=== PATIENT | female | born 1950 | race Caucasian/White ===

== ENCOUNTER 2018-11-05 17:51 | Inpatient (IN) | payer MEDICARE ==
[~2018-11-05] VITALS: Ht 157.5 cm; Wt 48.5 kg
[~2018-11-05 17:51] MED LIST: ADVAIR 250-501 EACH IH; ALBUTEROL1.25 MG/3 NEB; CLARITIN-D 241 EACH PO; LOPRESSOR25 MG PO; METHYLPREDNISOLO4 M1; PREDNISONE20 MG PO; SINGULAIR10 MG PO; SPIRIVA18 MCG; TESSALON PERLE100 MG PO; THEOPHYLLINE A200 MG PO; VENTOLIN HFA18 GM INH; ZOLOFT100 MG PO; unable to obtain
--- OUTSIDE RECORDS SUMMARY | 2018-11-05 17:54 | XMS REPORT ---
Author Author [facility] Address Unknown Phone Unavailable Care Team Providers Care [employer] Field Supervisor Name Role Phone HARVEY IRELAND Unavailable Unavailable Problems This patient has no known problems. Allergies, Adverse Reactions, Alerts Allergy Name Allergy Type Status Severity Reaction(s) Onset Date Inactive Date Treating Clinician Comments No Known Allergies DA Active U 2011-09-26 00:00:00 Medications This patient has no known medications. Results Test Description Test Time Test Comments Text Results Atomic Results Result Comments LIPASE 2017-12-07 16:31:00 LIPASE (BEAKER) (test zevp=917) 6 U/L 8-78 HEPATIC FUNCTION [id number] 16:31:00* Test Item Value Reference Range Comments TOTAL PROTEIN (BEAKER) (test obtl=196) 5.6 gm/dL 6.0-8.3 ALBUMIN (BEAKER) (test tptd=2023) 3.5 g/dL 3.5-5.0 BILIRUBIN TOTAL (BEAKER) (test cxms=251) 0.6 mg/dL 0.2-1.2 BILIRUBIN DIRECT (BEAKER) (test wtab=633) 0.3 mg/dL 0.1-0.5 ALKALINE PHOSPHATASE (BEAKER) (test bvqj=595) 67 U/L 40-150 AST (SGOT) (BEAKER) (test lfnc=750) 24 U/L 5-34 ALT (SGPT) (BEAKER) (test cwee=007) 18 U/L 6-55 TISSUE [id number] 10:51:00Surgical Pathology Report Case: [id number] Authorizing Provider: Ricardo Ireland Collected: 12/03/2017 0929 MD Barry Ordering Location: [facility] Endoscopy Received: 12/03/2017 1441 Services Pathologist: Chika Bradford MD Specimen: Polyp, Colon - Right/Ascending, POLYP-TAKEN BY ESD. EVALUATE MARGINS COLON, ASCENDING, ENDOSCOPIC SUBMUCOSAL DISSECTION OF POLYP- SESSILE SERRATED POLYP/ADENOMA- NEGATIVE FOR CYTOLOGIC ATYPIA - NEGATIVE FOR INVASIVE ADENOCARCINOMA- POLYP EXTENDS TO PERIPHERAL MUCOSAL MARGIN- see comment Signing Pathologist Direct Phone Line: [phone] signed by Chika Bradford MD on 12/07/2017 at 10:51 AMEndoscopic correlation is recommended to determine completeness of excision of the polyp. [id number] colon polypRight/ascending colon polypReceived in formalin labeled "polyp, colon right/ascending" is a 3.6 x 3.0 cm irregular mucous covered fragment of soft tissue excised to a depth of 0.2 cm. The mucosal surface is purple-noland to paul- white, dusky and nodular. Sectioning reveals no firm areas. Ink code: peripheral resection margins - blue; deep margin - black. The specimen is entirely sequentially submitted in cassettes A1-A8. DB/plAll sections A1-A8 show i nvolvement by sessile serrated polyp extending to peripheral mucosa margins. No cytologic atypia or invasive adenocarcinoma is seen.[id number] 06:13:00 * Test Item Value Reference Range Comments MAGNESIUM (BEAKER) (test wosd=764) 1.9 mg/dL 1.6-2.6 BASIC METABOLIC [id number] 06:13:00* Test Item Value Reference Range Comments SODIUM (BEAKER) (test syid=919) 143 meq/L 136-145 POTASSIUM (BEAKER) (test dvpg=849) 3.5 meq/L 3.5-5.1 CHLORIDE (BEAKER) (test cttr=526) 108 meq/L 98-107 CO2 (BEAKER) (test ydlp=278) 29 meq/L 22-29 BLOOD UREA NITROGEN (BEAKER) (test bkrz=849) 6 mg/dL 7-21 CREATININE (BEAKER) (test ajqv=396) 0.63 mg/dL 0.57-1.25 GLUCOSE RANDOM (BEAKER) (test keox=080) 97 mg/dL 70-105 CALCIUM (BEAKER) (test ntaw=552) 8.6 mg/dL 8.4-10.2 EGFR (BEAKER) (test tqad=6106) 95 mL/min/1.73 sq m ESTIMATED GFR IS NOT ACCURATE CREATININE CLEARANCE IN PREDICTING GLOMERULAR FILTRATION RATE. ESTIMATED GFR IS NOT APPLICABLE FOR DIALYSIS PATIENTS. CBC W/PLT COUNT & AUTO [id number] 05:43:00* Test Item Value Reference Range Comments WHITE BLOOD CELL COUNT (BEAKER) (test duzs=866) 4.5 K/ L 3.5-10.5 RED BLOOD CELL COUNT (BEAKER) (test qqof=544) 4.13 M/ L 3.93-5.22 HEMOGLOBIN (BEAKER) (test ktoy=644) 11.7 GM/DL 11.2-15.7 HEMATOCRIT (BEAKER) (test srlt=332) 38.0 % 34.1-44.9 MEAN CORPUSCULAR VOLUME (BEAKER) (test fpcw=573) 92.0 fL 79.4-94.8 MEAN CORPUSCULAR HEMOGLOBIN (BEAKER) (test juxh=862) 28.3 pg 25.6-32.2 MEAN CORPUSCULAR HEMOGLOBIN CONC (BEAKER) (test zjsq=111) 30.8 GM/DL 32.2-35.5 RED CELL DISTRIBUTION WIDTH (BEAKER) (test hzvq=679) 13.9 % 11.7-14.4 PLATELET COUNT (BEAKER) (test vtws=201) 150 K/CU MM 150-450 MEAN PLATELET VOLUME (BEAKER) (test bsvc=072) 10.7 fL 9.4-12.3 NUCLEATED RED BLOOD CELLS (BEAKER) (test nbom=460) 0 /100 WBC 0-0 NEUTROPHILS RELATIVE PERCENT (BEAKER) (test anuc=033) 75 % LYMPHOCYTES RELATIVE PERCENT (BEAKER) (test stdo=666) 12 % MONOCYTES RELATIVE PERCENT (BEAKER) (test kzyc=832) 7 % EOSINOPHILS RELATIVE PERCENT (BEAKER) (test csna=913) 4 % BASOPHILS RELATIVE PERCENT (BEAKER) (test wnwp=884) 1 % NEUTROPHILS ABSOLUTE COUNT (BEAKER) (test wrva=090) 3.38 K/ L 1.56-6.13 LYMPHOCYTES ABSOLUTE COUNT (BEAKER) (test zqvo=897) 0.52 K/ L 1.18-3.74 MONOCYTES ABSOLUTE COUNT (BEAKER) (test xqdc=782) 0.31 K/ L 0.24-0.36 EOSINOPHILS ABSOLUTE COUNT (BEAKER) (test zndu=292) 0.19 K/ L 0.04-0.36 BASOPHILS ABSOLUTE COUNT (BEAKER) (test jihp=928) 0.03 K/ L 0.01-0.08 IMMATURE GRANULOCYTES-RELATIVE PERCENT (BEAKER) (test cxlb=7926) 1 % 0-1 [id number] 07:07:00* Test Item Value Reference Range Comments MAGNESIUM (BEAKER) (test thvg=357) 1.8 mg/dL 1.6-2.6 Specimen slightly hemolyzed BASIC METABOLIC [id number] 07:07:00* Test Item Value Reference Range Comments SODIUM (BEAKER) (test eccc=124) 141 meq/L 136-145 POTASSIUM (BEAKER) (test hijn=619) 4.0 meq/L 3.5-5.1 Specimen slightly hemolyzed CHLORIDE (BEAKER) (test wqne=809) 107 meq/L 98-107 CO2 (BEAKER) (test wutt=511) 23 meq/L 22-29 BLOOD UREA NITROGEN (BEAKER) (test enai=351) 5 mg/dL 7-21 CREATININE (BEAKER) (test gmmz=397) 0.59 mg/dL 0.57-1.25 Specimen slightly hemolyzed GLUCOSE RANDOM (BEAKER) (test wjwl=249) 76 mg/dL 70-105 CALCIUM (BEAKER) (test kqzb=022) 8.9 mg/dL 8.4-10.2 EGFR (BEAKER) (test edkf=2007) 102 mL/min/1.73 sq m ESTIMATED GFR IS NOT ACCURATE CREATININE CLEARANCE IN PREDICTING GLOMERULAR FILTRATION RATE. ESTIMATED GFR IS NOT APPLICABLE FOR DIALYSIS PATIENTS. CBC W/PLT COUNT & AUTO [id number] 06:56:00* Test Item Value Reference Range Comments WHITE BLOOD CELL COUNT (BEAKER) (test qlgi=750) 5.9 K/ L 3.5-10.5 RED BLOOD CELL COUNT (BEAKER) (test lzon=298) 3.97 M/ L 3.93-5.22 HEMOGLOBIN (BEAKER) (test nizu=450) 11.4 GM/DL 11.2-15.7 HEMATOCRIT (BEAKER) (test mhzq=881) 36.7 % 34.1-44.9 MEAN CORPUSCULAR VOLUME (BEAKER) (test jvej=399) 92.4 fL 79.4-94.8 MEAN CORPUSCULAR HEMOGLOBIN (BEAKER) (test kpjk=333) 28.7 pg 25.6-32.2 MEAN CORPUSCULAR HEMOGLOBIN CONC (BEAKER) (test ehdq=880) 31.1 GM/DL 32.2-35.5 RED CELL DISTRIBUTION WIDTH (BEAKER) (test citp=019) 13.8 % 11.7-14.4 PLATELET COUNT (BEAKER) (test bbbb=906) 127 K/CU MM 150-450 MEAN PLATELET VOLUME (BEAKER) (test focz=257) 11.2 fL 9.4-12.3 NUCLEATED RED BLOOD CELLS (BEAKER) (test icap=415) 0 /100 WBC 0-0 NEUTROPHILS RELATIVE PERCENT (BEAKER) (test ecds=491) 83 % LYMPHOCYTES RELATIVE PERCENT (BEAKER) (test haog=985) 6 % MONOCYTES RELATIVE PERCENT (BEAKER) (test ustq=388) 6 % EOSINOPHILS RELATIVE PERCENT (BEAKER) (test msyf=254) 4 % BASOPHILS RELATIVE PERCENT (BEAKER) (test dngs=765) 0 % NEUTROPHILS ABSOLUTE COUNT (BEAKER) (test mecs=518) 4.91 K/ L 1.56-6.13 LYMPHOCYTES ABSOLUTE COUNT (BEAKER) (test humt=433) 0.36 K/ L 1.18-3.74 MONOCYTES ABSOLUTE COUNT (BEAKER) (test rtad=240) 0.35 K/ L 0.24-0.36 EOSINOPHILS ABSOLUTE COUNT (BEAKER) (test eivc=370) 0.22 K/ L 0.04-0.36 BASOPHILS ABSOLUTE COUNT (BEAKER) (test dyzc=477) 0.02 K/ L 0.01-0.08 IMMATURE GRANULOCYTES-RELATIVE PERCENT (BEAKER) (test onui=8571) 1 % 0-1 CBC W/PLT COUNT & AUTO [id number] 07:18:00* Test Item Value Reference Range Comments WHITE BLOOD CELL COUNT (BEAKER) (test bmwe=256) 9.2 K/ L 3.5-10.5 RED BLOOD CELL COUNT (BEAKER) (test eheb=271) 4.09 M/ L 3.93-5.22 HEMOGLOBIN (BEAKER) (test smgb=403) 11.7 GM/DL 11.2-15.7 HEMATOCRIT (BEAKER) (test xrnc=874) 38.1 % 34.1-44.9 MEAN CORPUSCULAR VOLUME (BEAKER) (test oquo=087) 93.2 fL 79.4-94.8 MEAN CORPUSCULAR HEMOGLOBIN (BEAKER) (test ydyw=419) 28.6 pg 25.6-32.2 MEAN CORPUSCULAR HEMOGLOBIN CONC (BEAKER) (test nopd=651) 30.7 GM/DL 32.2-35.5 RED CELL DISTRIBUTION WIDTH (BEAKER) (test zriz=123) 14.1 % 11.7-14.4 PLATELET COUNT (BEAKER) (test dbrx=853) 115 K/CU MM 150-450 MEAN PLATELET VOLUME (BEAKER) (test utcl=693) 11.1 fL 9.4-12.3 NUCLEATED RED BLOOD CELLS (BEAKER) (test hves=887) 0 /100 WBC 0-0 NEUTROPHILS RELATIVE PERCENT (BEAKER) (test cuna=042) 88 % LYMPHOCYTES RELATIVE PERCENT (BEAKER) (test hetf=539) 5 % MONOCYTES RELATIVE PERCENT (BEAKER) (test qmbw=039) 5 % EOSINOPHILS RELATIVE PERCENT (BEAKER) (test bdzq=486) 2 % BASOPHILS RELATIVE PERCENT (BEAKER) (test wzde=876) 0 % NEUTROPHILS ABSOLUTE COUNT (BEAKER) (test uiqe=729) 8.13 K/ L 1.56-6.13 LYMPHOCYTES ABSOLUTE COUNT (BEAKER) (test twme=766) 0.43 K/ L 1.18-3.74 MONOCYTES ABSOLUTE COUNT (BEAKER) (test qhnb=669) 0.43 K/ L 0.24-0.36 EOSINOPHILS ABSOLUTE COUNT (BEAKER) (test lyhw=911) 0.16 K/ L 0.04-0.36 BASOPHILS ABSOLUTE COUNT (BEAKER) (test nfvl=187) 0.03 K/ L 0.01-0.08 IMMATURE GRANULOCYTES-RELATIVE PERCENT (BEAKER) (test tjsy=9605) 1 % 0-1 [id number] 07:14:00* Test Item Value Reference Range Comments MAGNESIUM (BEAKER) (test rfzg=285) 1.8 mg/dL 1.6-2.6 BASIC METABOLIC [id number] 07:14:00* Test Item Value Reference Range Comments SODIUM (BEAKER) (test mkew=224) 137 meq/L 136-145 POTASSIUM (BEAKER) (test hkjp=714) 4.0 meq/L 3.5-5.1 CHLORIDE (BEAKER) (test hiap=879) 107 meq/L 98-107 CO2 (BEAKER) (test gqwp=246) 23 meq/L 22-29 BLOOD UREA NITROGEN (BEAKER) (test razs=535) 6 mg/dL 7-21 CREATININE (BEAKER) (test zyjd=290) 0.61 mg/dL 0.57-1.25 GLUCOSE RANDOM (BEAKER) (test wjtj=247) 80 mg/dL 70-105 CALCIUM (BEAKER) (test dsya=841) 8.9 mg/dL 8.4-10.2 EGFR (BEAKER) (test wuxw=5238) 98 mL/min/1.73 sq m ESTIMATED GFR IS NOT ACCURATE CREATININE CLEARANCE IN PREDICTING GLOMERULAR FILTRATION RATE. ESTIMATED GFR IS NOT APPLICABLE FOR DIALYSIS PATIENTS. CT, [id number] 03:16:00Oral and rectal contrastFINAL REPORT EXAMINATION: CT SCAN OF THE ABDOMEN AND PELVIS CLINICAL HISTORY:Abdominal pain-peritonitis. Evaluate for perforation. COMPARISON EXAM: None TECHNIQUE: Following the administration of oral and rectal contrast, axial tomographic images were acquired through the abdomen and pelvis. Following the administration of IV contrast, the exam was repeated. The exam was performed according to our departmental dose optimization program which includes automated exposure control, adjustment of the mA and/or kV according to patient's size and/or use of iterative reconstructive technique. FINDINGS: The heart size is normal. There is a small pericardial effusion. The distal esophagus is dec ompressed. Thin neck curvilinear and subtle groundglass opacities are noted in b oth lung bases. Atelectasis and/or scarring favored. Mild pulmonary edema is dif ficult to exclude. The pancreas is atrophic with fatty infiltration. Indistinct margins of the pancreas may be related to the fatty infiltration. Early acute pa ncreatitis or underlying pancreatic neoplasm cannot be excluded. MRI could be pe rformed for further evaluation if warranted. At least 4 small subcentimeter hypo densities are noted in the liver, too small to further characterize. The gallbla dder is mildly distended without evidence of pericholecystic edema. No definite pathologic biliary dilatation. The spleen is enlarged measuring 14 x 9 x 11 cm. Innumerable predominantly hypodense nodules are scattered throughout the spleen. The largest nodule measures approximately 1.5 cm. The adrenal glands are normal in size and shape. No evidence of renal obstruction, nephrolithiasis or perinep hric edema. The ureters are decompressed. The bladder is unremarkable. A small v olume of free air is noted in the upper abdomen, predominantly below the diaphra gm along the liver, stomach and upper pole of the spleen. Etiology for the extra luminal gas is indeterminate. The stomach is moderately distended with predomina tely oral contrast. Multiple tiny punctate in curvilinear gas collections are no gianna in the stomach, most conspicuous in the cardiac region of the stomach. Altho ugh the findings may reflect partial volume averaging artifact, small volume gas tric pneumatosis is difficult to completely exclude. No evidence of mesenteric o r portal venous gas. The patient is status post suspected partial colectomy. A m ildly distended segment of bowel projects over the right mid abdomen which is as sociated with multiple intraluminal metallic densities which may reflect postope rative changes. No definite evidence of high-grade mechanical bowel obstruction. The remaining rectosigmoid colon demonstrates diverticulosis without definitive evidence of diverticulitis. There is a small adipose tissue containing umbilical hernia. No evidence of bowel involvement. The abdominal aorta is normal in jordan iber. Scattered calcific atherosclerotic plaques are noted involving the aorta, mesenteric, renal and iliac arteries. Contrast also opacifies the portal venous system, renal vessels, IVC and the iliac vessels. The uterus is likely absent. N o evidence of a discrete adnexal mass. No significant intra-abdominal or pelvic free fluid. Numerous small calcifications are noted in the pelvis. Vascular phle boliths are favored. A nonobstructing distal ureteral calculus is difficult to completely exclude. The superior endplate of the L1 vertebral body is associated with a small central depression with sclerotic margins suggesting a Schmorl's n ode. No definite evidence of an acute osseous abnormality. IMPRESSION: Small vo lume upper abdominal pneumoperitoneum, etiology indeterminant. If urgent - emerg ent surgical evaluation is not warranted clinically, consider short-term follow- up CT surveillance. Tiny punctate and curvilinear gas collections along the wall of the stomach, most conspicuous in the cardiac region of the stomach. Artifact versus small volume pneumatosis. Splenomegaly (14 x 9 x 11 cm). Innumerable sma ll splenic lesions, nonspecific. Lymphoma would be included in the differential diagnosis. Postoperative changes as detailed above including partial colectomy. No evidence of high-grade mechanical bowel obstruction. Pancreatic atrophy and s ubtle infiltration of the peripancreatic soft tissues as detailed above. Correla tion with pancreatic function studies recommended. Signed: Boom Tay Verified Date/Time: 12/05/2017 03:16:22 Reading Location: [address] Single ton Reading Room Electronically signed by: BOOM TAY M.D. on 8 03:16 AM RAD, ABDOMEN/KUB, 1 VIEW [id number] 16:43:00Reason for exam:->abd painShould this be performed at the bedside?->YesFINAL REPORT CLINICAL HISTORY: abd pain status post colonoscopy TECHNIQUE: Upright AP abdomen COMPARISON: None IMPRESSION: Lucency beneath the diaphragm is compatible with pneumoperitoneum/free air in the abdomen. There are surgical clips in the left epigastric region. The bowel gas pattern is otherwise nonspecific. The findings were discussed with nurse Radha on 20T at the time of dictation who will relay them to the physician. Signed: Gerry Lion Verified Date/Time: 12/04/2017 16:43:26 Reading Location: [facility] C013 Consult Reading Room Electronically signed by: GERRY LION M.D. on 04:43 PM CBC W/PLT COUNT & AUTO [id number] 06:41:00* Test Item Value Reference Range Comments WHITE BLOOD CELL COUNT (BEAKER) (test dmvn=435) 12.9 K/ L 3.5-10.5 RED BLOOD CELL COUNT (BEAKER) (test zbly=435) 4.21 M/ L 3.93-5.22 HEMOGLOBIN (BEAKER) (test jmuq=476) 11.9 GM/DL 11.2-15.7 HEMATOCRIT (BEAKER) (test imez=952) 38.6 % 34.1-44.9 MEAN CORPUSCULAR VOLUME (BEAKER) (test qqsi=561) 91.7 fL 79.4-94.8 MEAN CORPUSCULAR HEMOGLOBIN (BEAKER) (test phqk=308) 28.3 pg 25.6-32.2 MEAN CORPUSCULAR HEMOGLOBIN CONC (BEAKER) (test irwu=492) 30.8 GM/DL 32.2-35.5 RED CELL DISTRIBUTION WIDTH (BEAKER) (test hrvn=838) 14.0 % 11.7-14.4 PLATELET COUNT (BEAKER) (test tawn=050) 136 K/CU MM 150-450 MEAN PLATELET VOLUME (BEAKER) (test vfil=097) 11.0 fL 9.4-12.3 NUCLEATED RED BLOOD CELLS (BEAKER) (test dajh=136) 0 /100 WBC 0-0 NEUTROPHILS RELATIVE PERCENT (BEAKER) (test pgpi=589) 91 % LYMPHOCYTES RELATIVE PERCENT (BEAKER) (test odwd=820) 5 % MONOCYTES RELATIVE PERCENT (BEAKER) (test uoyh=982) 4 % EOSINOPHILS RELATIVE PERCENT (BEAKER) (test ycay=885) 0 % BASOPHILS RELATIVE PERCENT (BEAKER) (test wfsq=743) 0 % NEUTROPHILS ABSOLUTE COUNT (BEAKER) (test caot=324) 11.73 K/ L 1.56-6.13 LYMPHOCYTES ABSOLUTE COUNT (BEAKER) (test yfnr=632) 0.58 K/ L 1.18-3.74 MONOCYTES ABSOLUTE COUNT (BEAKER) (test tpmz=485) 0.49 K/ L 0.24-0.36 EOSINOPHILS ABSOLUTE COUNT (BEAKER) (test zliz=899) 0.01 K/ L 0.04-0.36 BASOPHILS ABSOLUTE COUNT (BEAKER) (test dnqc=879) 0.02 K/ L 0.01-0.08 IMMATURE GRANULOCYTES-RELATIVE PERCENT (BEAKER) (test bdsq=0916) 1 % 0-1 BASIC METABOLIC [id number] 06:12:00* Test Item Value Reference Range Comments SODIUM (BEAKER) (test rgtt=908) 143 meq/L 136-145 POTASSIUM (BEAKER) (test kehw=391) 3.9 meq/L 3.5-5.1 CHLORIDE (BEAKER) (test qeex=329) 109 meq/L 98-107 CO2 (BEAKER) (test wusn=949) 26 meq/L 22-29 BLOOD UREA NITROGEN (BEAKER) (test ozyq=507) 14 mg/dL 7-21 CREATININE (CHRISTOPHERAKER) (test updp=429) 0.75 mg/dL 0.57-1.25 GLUCOSE RANDOM (CHRISTOPHERAKER) (test oakd=160) 114 mg/dL 70-105 CALCIUM (CHRISTOPHERAKER) (test xhut=542) 8.6 mg/dL 8.4-10.2 EGFR (YAHAIRA) (test uqpf=7472) 77 mL/min/1.73 sq m ESTIMATED GFR IS NOT ACCURATE CREATININE CLEARANCE IN PREDICTING GLOMERULAR FILTRATION RATE. ESTIMATED GFR IS NOT APPLICABLE FOR DIALYSIS PATIENTS.
--- OUTSIDE RECORDS SUMMARY | 2018-11-05 17:54 | XMS REPORT | Clinical Summary ---
Author Author BENI 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 Active predniSONE (DELTASONE) 10 Take 5 mg by 0 MG tablet mouth daily . Active montelukast (SINGULAIR) Take 10 mg by 0 10 mg tablet mouth nightly. Active roflumilast (DALIRESP) Take by mouth 0 500 mcg Tab tablet daily. Active gabapentin (NEURONTIN) Take 300 mg 0 300 MG capsule by mouth 3 (three) times daily. Active famotidine (PEPCID) 40 MG Take 40 mg by 0 tablet mouth nightly. Active omeprazole (PRILOSEC) 40 Take 40 mg by 0 MG capsule mouth daily. Active TiZANidine (ZANAFLEX) 4 Take 1 0 MG capsule capsule (4 mg 8 total) by mouth 3 (three) times daily as needed for Muscle spasms. Active HYDROcodone-acetaminophen Take 1 tablet 0 (NORCO 10-325) 10-325 mg by mouth 8 per tablet every 4 (four) hours as needed for Pain. Max Daily Amount: 6 tablets 12/07/2018 Active atorvastatin (LIPITOR) 40 Take 1 tablet 90 tablet 3 MG tablet (40 mg total) 8 by mouth nightly. 12/08/2018 Active magnesium oxide (MAG-OX) Take 1 tablet 90 tablet 3 400 mg tablet (400 mg 8 total) by mouth daily. 12/07/2018 Active albuterol HFA (VENTOLIN Inhale 2 0 HFA) 90 mcg/actuation puffs by 8 inhaler mouth via inhaler every 6 (six) hours as needed for Wheezing or Shortness of Breath. 12/07/2018 Active ipratropium (ATROVENT) Take 2.5 mLs 0 0.02 % nebulizer solution (0.5 mg 8 total) by nebulization every 6 (six) hours as needed for Wheezing. 12/07/2018 Active mometasone-formoterol Inhale 2 0 (DULERA) 100-5 puffs by 8 mcg/actuation inhaler mouth via inhaler 2 (two) times daily. 12/07/2018 Active tiotropium (SPIRIVA) 18 Inhale 1 0 mcg inhalation capsule capsule (18 8 mcg total) by mouth via inhaler daily. 12/07/2017 Discontinued albuterol HFA (VENTOLIN Inhale 1 puff 0 HFA) 90 mcg/actuation by mouth via inhaler inhaler every 6 (six) hours as needed for Wheezing. 12/07/2017 Discontinued HYDROcodone-acetaminophen Take 1 tablet 0 (NORCO 10-325) 10-325 mg by mouth per tablet every 6 (six) hours as needed for Pain. 12/07/2017 Discontinued ipratropium (ATROVENT) Take 500 mcg 0 0.02 % nebulizer solution by nebulization as needed . 12/07/2017 Discontinued mometasone-formoterol Inhale 2 0 (DULERA) 100-5 puffs by mcg/actuation inhaler mouth via inhaler 2 (two) times daily. 12/07/2017 Discontinued tiotropium (SPIRIVA) 18 Inhale 18 mcg 0 mcg inhalation capsule by mouth via inhaler daily. 12/07/2017 Discontinued traMADol (ULTRAM) 50 mg Take 50 mg by 0 tablet mouth every 6 (six) hours as needed for Pain. 12/07/2017 Discontinued TiZANidine (ZANAFLEX) 4 Take 4 mg by 0 MG capsule mouth 3 (three) times daily. 12/07/2017 Discontinued cholestyramine (QUESTRAN) Take 1 packet 0 4 gram PwPk packet by mouth nightly. 12/21/2017 docusate sodium (COLACE) Take 1 0 100 MG capsule capsule (100 8 mg total) by mouth 2 (two) times daily for 14 days. 12/08/2017 Discontinued ciprofloxacin HCl (CIPRO) Take 1 tablet 1 tablet 0 500 MG tablet (500 mg 8 total) by mouth once for 1 dose. 12/07/2017 Discontinued metroNIDAZOLE (FLAGYL) Take 1 tablet 2 tablet 0 500 MG tablet (500 mg 8 total) by mouth every 8 (eight) hours for 2 doses. 12/08/2017 metroNIDAZOLE (FLAGYL) Take 1 tablet 2 tablet 0 500 MG tablet (500 mg 8 total) by mouth every 8 (eight) hours for 2 doses. 12/08/2017 ciprofloxacin HCl (CIPRO) Take 1 tablet 1 tablet 0 500 MG tablet (500 mg 8 total) by mouth once for 1 dose. 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 Colon polyp 12/03/2017 Colonic polyp 12/03/2017 COPD (chronic obstructive pulmonary disease) 12/03/2017 Overview: stable with meds.O2 1.5 L/min per n/c at HS only Chronic back pain 12/03/2017 Former smoker 12/03/2017 GERD (gastroesophageal reflux disease) 12/03/2017 Major depressive disorder 12/03/2017 Colitis 03/08/2016 Colovaginal fistula 02/18/2016 Encounters Care Team Description Date Type Specialty Andrade Gooden MD 12/03/2017 Anesthesia Gastroenterology Event Ricardo Ireland MD COLONOSCOPY,SUBMUCOSAL RESECTION 12/03/2017 Surgery Gastroenterology Ricardo Ireland MD 12/03/2017 Hospital Oncology - Encounter 12/08/2017 12/01/2017 Hospital Pre-Admission Testing Encounter after 11/04/2017 Social History Date Tobacco Use Types Packs/Day Years Used Former Smoker 0.5 35 Smokeless Tobacco: Never Used Comments: quit smoking 2006 Alcohol Use Drinks/Week oz/Week Comments No Sex Assigned at Date Recorded Not on file Industry Job Start Date Occupation Not on file Not on file Not on file Travel End Travel History Travel Start No recent travel history available. Last Filed Vital Signs Time Taken Vital Sign Reading 12/08/2017 7:00 AM CDT Blood Pressure 134/71 12/08/2017 9:06 AM CDT Pulse 91 12/08/2017 7:00 AM CDT Temperature 36.8 C (98.3 F) 12/08/2017 9:06 AM CDT Respiratory Rate 19 12/08/2017 9:06 AM CDT Oxygen Saturation 97% - Inhaled Oxygen - Concentration 12/03/2017 8:21 AM CDT Weight 46.1 kg (101 lb 11.2 oz) 12/03/2017 8:21 AM CDT Height 157.5 cm (5' 2") 12/03/2017 8:21 AM CDT Body Mass Index 18.6 Plan of Treatment Not on file Implants Device Identifier Shelf Expiration Date Model / Serial / Lot Implanted Type Area Manufactur er 05/09/2018 4301-02 / / [id number] Memb Seprafilm Adhen Preston 5x6 Cement/Gonzalez N/A: Abdomen GENZYME 4301-02 - [id number] ler/Adhesi MARTINEZ: Implanted: Qty: 2 on 02/18/2016 by ve BIO-SURG Irving Simon MD Procedures Comments Procedure Name Priority Date/Time Associated Diagnosis LIPASE Routine 12/07/2017 4:17 PM CDT HEPATIC FUNCTION PANEL Routine 12/07/2017 4:17 PM CDT CBC W/PLT COUNT & AUTO Routine 12/07/2017 DIFFERENTIAL 4:20 AM CDT MAGNESIUM Routine 12/07/2017 4:20 AM CDT BASIC METABOLIC PANEL (7) Routine 12/07/2017 4:20 AM CDT CBC W/PLT COUNT & AUTO Routine 12/07/2017 DIFFERENTIAL 4:20 AM CDT CBC W/PLT COUNT & AUTO Routine 12/06/2017 DIFFERENTIAL 4:09 AM CDT MAGNESIUM Routine 12/06/2017 4:09 AM CDT BASIC METABOLIC PANEL (7) Routine 12/06/2017 4:09 AM CDT CBC W/PLT COUNT & AUTO Routine 12/06/2017 DIFFERENTIAL 4:09 AM CDT CBC W/PLT COUNT & AUTO Routine 12/05/2017 DIFFERENTIAL 5:24 AM CDT MAGNESIUM Routine 12/05/2017 5:24 AM CDT BASIC METABOLIC PANEL (7) Routine 12/05/2017 5:24 AM CDT CBC W/PLT COUNT & AUTO Routine 12/05/2017 DIFFERENTIAL 5:[address] ABDOMEN/PELVIS WITH & STAT 12/05/2017 WITHOUT IV CONTRAST 1:41 AM CDT XR ABDOMEN / KUB 1 VIEW NIHARIKA 12/04/2017 3:58 PM CDT CBC W/PLT COUNT & AUTO Routine 12/04/2017 DIFFERENTIAL 4:11 AM CDT BASIC METABOLIC PANEL (7) Routine 12/04/2017 4:11 AM CDT CBC W/PLT COUNT & AUTO Routine 12/04/2017 DIFFERENTIAL 4:11 AM CDT REPORT OF PROCEDURE - 12/03/2017 ENDOSCOPY URL 8:01 PM CDT TISSUE EXAM AP Routine 12/03/2017 9:29 AM CDT COLONOSCOPY,SUBMUCOSAL 12/03/2017 Polyp of ascending colon, INJECTION 8:30 AM CDT unspecified type COLONOSCOPY,SUBMUCOSAL 12/03/2017 Polyp of ascending colon, RESECTION 8:30 AM CDT unspecified type after 11/04/2017 Results * Lipase (12/07/2017 4:17 PM CDT) Lipase 6 (L) 8 - 78 U/L [facility] Specimen Blood Performing Organization Address City/State/Zipcode Phone Number [facility] [address] [place] [address] [phone] [place] [address] * Hepatic function panel (12/07/2017 4:17 PM CDT) Protein, Total 5.6 (L) 6.0 - 8.3 gm/dL [facility] Albumin 3.5 3.5 - 5.0 g/dL [facility] Total Bilirubin 0.6 0.2 - 1.2 mg/dL [facility] Bilirubin, Direct 0.3 0.1 - 0.5 mg/dL [facility] Alkaline Phosphatase 67 40 - 150 U/L [facility] AST 24 5 - 34 U/L [facility] ALT 18 6 - 55 U/L [facility] Specimen Blood Performing Organization Address City/State/Zipcode Phone Number [facility] [address] [place] [address] [facility] * CBC with platelet count + automated diff (12/07/2017 4:20 AM CDT) Only the most recent of 4 results within the time period is included. WBC 4.5 3.5 - 10.5 K/L [facility] RBC 4.13 3.93 - 5.22 M/L [facility] Hemoglobin 11.7 11.2 - 15.7 GM/DL [facility] Hematocrit 38.0 34.1 - 44.9 % [facility] MCV 92.0 79.4 - 94.8 fL [facility] MCH 28.3 25.6 - 32.2 pg [facility] MCHC 30.8 (L) 32.2 - 35.5 GM/DL [facility] RDW 13.9 11.7 - 14.4 % [facility] Platelets 150 150 - 450 K/CU MM [facility] MPV 10.7 9.4 - 12.3 fL [facility] nRBC 0 0 - 0 /100 WBC [facility] % Neutros 75 % [facility] % Lymphs 12 % [facility] % Monos 7 % [facility] % Eos 4 % [facility] % Baso 1 % [facility] # Neutros 3.38 1.56 - 6.13 K/L [facility] # Lymphs 0.52 (L) 1.18 - 3.74 K/L [facility] # Monos 0.31 0.24 - 0.36 K/L [facility] # Eos 0.19 0.04 - 0.36 K/L [facility] # Baso 0.03 0.01 - 0.08 K/L [facility] Immature 1 0 - 1 % [facility] Granulocytes-[facility] Specimen Blood Performing Organization Address City/State/[place] [address] [phone] [place] [address] * Magnesium (12/07/2017 4:20 AM CDT) Only the most recent of 3 results within the time period is included. Magnesium 1.9 1.6 - 2.6 mg/dL [facility] Specimen Blood Performing Organization Address City/State/Zipcode Phone Number [facility] [address] [place] [phone] [facility] * Basic Metabolic Panel (12/07/2017 4:20 AM CDT) Only the most recent of 4 results within the time period is included. Sodium 143 136 - 145 meq/L [facility] Potassium 3.5 3.5 - 5.1 meq/L [facility] Chloride 108 (H) 98 - 107 meq/L [facility] CO2 29 22 - 29 meq/L [facility] BUN 6 (L) 7 - 21 mg/dL [facility] Creatinine 0.63 0.57 - 1.25 mg/dL [facility] Glucose 97 70 - 105 mg/dL [facility] Calcium 8.6 8.4 - 10.2 mg/dL [facility] EGFR 95Comment: ESTIMATED GFR IS mL/min/1.[address] [facility] NOT ACCURATE CREATININE [facility] CLEARANCE IN PREDICTING GLOMERULAR FILTRATION RATE. ESTIMATED GFR IS NOT APPLICABLE FOR DIALYSIS PATIENTS. Specimen Blood Performing Organization Address City/State/Zipcode Phone Number [facility] [address] [place] [address] [address] * CT abdomen/pelvis without & with IV contrast (12/05/2017 1:41 AM CDT) Specimen Narrative Performed At FINAL REPORT [facility] EXAMINATION:CT SCAN OF THE ABDOMEN AND PELVIS CLINICAL [...] small pericardial effusion. The distal esophagus is decompressed. Thin neck curvilinear and subtle groundglass opacities are noted in both lung bases. Atelectasis and/or scarring favored. Mild pulmonary edema is difficult to exclude. The pancreas is atrophic with fatty infiltration. Indistinct margins of the pancreas may be related to the fatty infiltration. Early acute pancreatitis or underlying pancreatic neoplasm cannot be excluded. MRI could be performed for further evaluation if warranted. At least 4 small subcentimeter hypodensities are noted in the liver, too small to further characterize. The gallbladder is mildly distended without evidence of pericholecystic edema. No definite pathologic biliary dilatation. The spleen is enlarged measuring 14 x 9 x 11 cm. Innumerable predominantly hypodense nodules are scattered throughout the spleen. The largest nodule measures approximately 1.5 cm. The adrenal glands are normal in size and shape. No evidence of renal obstruction, nephrolithiasis or perinephric edema. The ureters are decompressed. The bladder is unremarkable. A small volume of free air is noted in the upper abdomen, predominantly below the diaphragm along the liver, stomach and upper pole of the spleen. Etiology for the extraluminal gas is indeterminate. The stomach is moderately distended with predominately oral contrast. Multiple tiny punctate in curvilinear gas collections are noted in the stomach, most conspicuous in the cardiac region of the stomach. Although the findings may reflect partial volume averaging artifact, small volume gastric pneumatosis is difficult to completely exclude. No evidence of mesenteric or portal venous gas. The patient is status post suspected partial colectomy. A mildly distended segment of bowel projects over the right mid abdomen which is associated with multiple intraluminal metallic densities which may reflect postoperative changes. No definite evidence of high-grade mechanical bowel obstruction. The remaining rectosigmoid colon demonstrates diverticulosis without definitive evidence of diverticulitis. There is a small adipose tissue containing umbilical hernia. No evidence of bowel involvement. The abdominal aorta is normal in caliber. Scattered calcific atherosclerotic plaques are noted involving the aorta, mesenteric, renal and iliac arteries. Contrast also opacifies the portal venous system, renal vessels, IVC and the iliac vessels. The uterus is likely absent. No evidence of a discrete adnexal mass. No significant intra-abdominal or pelvic free fluid. Numerous small calcifications are noted in the pelvis. Vascular phleboliths are favored. Anonobstructing distal ureteral calculus is difficult to completely exclude. The superior endplate of the L1 vertebral body is associated with a small central depression with sclerotic margins suggesting a Schmorl's node. No definite evidence of an acute osseous abnormality. IMPRESSION: Small volume upper abdominal pneumoperitoneum, etiology indeterminant. If urgent - emergent surgical evaluation is not warranted clinically, consider short-term follow-up CT surveillance. Tiny punctate and curvilinear gas collections along the wall of the stomach, most conspicuous in the cardiac region of the stomach. Artifact versus small volume pneumatosis. Splenomegaly (14 x 9 x 11 cm). Innumerable small splenic lesions, nonspecific. Lymphoma would be included in the differential diagnosis. Postoperative changes as detailed above including partial colectomy. No evidence of high-grade mechanical bowel obstruction. Pancreatic atrophy and subtle infiltration of the peripancreatic soft tissues as detailed above. Correlation with pancreatic function studies recommended. Signed: Olga Tay MD Report Verified Date/Time:12/05/2017 03:16:22 Reading Location: [address] Reading Room Procedure Note Interface, External Ris In - 12/05/2017 3:18 AM CDT FINAL REPORT EXAMINATION: CT SCAN OF THE ABDOMEN [...] small pericardial effusion. The distal esophagus is decompressed. Thin neck curvilinear and subtle groundglass opacities are noted in both lung bases. Atelectasis and/or scarring favored. Mild pulmonary edema is difficult to exclude. The pancreas is atrophic with fatty infiltration. Indistinct margins of the pancreas may be related to the fatty infiltration. Early acute pancreatitis or underlying pancreatic neoplasm cannot be excluded. MRI could be performed for further evaluation if warranted. At least 4 small subcentimeter hypodensities are noted in the liver, too small to further characterize. The gallbladder is mildly distended without evidence of pericholecystic edema. No definite pathologic biliary dilatation. The spleen is enlarged measuring 14 x 9 x 11 cm. Innumerable predominantly hypodense nodules are scattered throughout the spleen. The largest nodule measures approximately 1.5 cm. The adrenal glands are normal in size and shape. No evidence of renal obstruction, nephrolithiasis or perinephric edema. The ureters are decompressed. The bladder is unremarkable. A small volume of free air is noted in the upper abdomen, predominantly below the diaphragm along the liver, stomach and upper pole of the spleen. Etiology for the extraluminal gas is indeterminate. The stomach is moderately distended with predominately oral contrast. Multiple tiny punctate in curvilinear gas collections are noted in the stomach, most conspicuous in the cardiac region of the stomach. Although the findings may reflect partial volume averaging artifact, small volume gastric pneumatosis is difficult to completely exclude. No evidence of mesenteric or portal venous gas. The patient is status post suspected partial colectomy. A mildly distended segment of bowel projects over the right mid abdomen which is associated with multiple intraluminal metallic densities which may reflect postoperative changes. No definite evidence of high-grade mechanical bowel obstruction. The remaining rectosigmoid colon demonstrates diverticulosis without definitive evidence of diverticulitis. There is a small adipose tissue containing umbilical hernia. No evidence of bowel involvement. The abdominal aorta is normal in caliber. Scattered calcific atherosclerotic plaques are noted involving the aorta, mesenteric, renal and iliac arteries. Contrast also opacifies the portal venous system, renal vessels, IVC and the iliac vessels. The uterus is likely absent. No evidence of a discrete adnexal mass. No significant intra-abdominal or pelvic free fluid. Numerous small calcifications are noted in the pelvis. Vascular phleboliths are favored. A nonobstructing distal ureteral calculus is difficult to completely exclude. The superior endplate of the L1 vertebral body is associated with a small central depression with sclerotic margins suggesting a Schmorl's node. No definite evidence of an acute osseous abnormality. IMPRESSION: Small volume upper abdominal pneumoperitoneum, etiology indeterminant. If urgent - emergent surgical evaluation is not warranted clinically, consider short-term follow-up CT surveillance. Tiny punctate and curvilinear gas collections along the wall of the stomach, most conspicuous in the cardiac region of the stomach. Artifact versus small volume pneumatosis. Splenomegaly (14 x 9 x 11 cm). Innumerable small splenic lesions, nonspecific. Lymphoma would be included in the differential diagnosis. Postoperative changes as detailed above including partial colectomy. No evidence of high-grade mechanical bowel obstruction. Pancreatic atrophy and subtle infiltration of the peripancreatic soft tissues as detailed above. Correlation with pancreatic function studies recommended. Signed: Olga Tay MD Report Verified Date/Time: 12/05/2017 03:16:22 Reading Location: [address] Reading Room Performing Organization Address City/State/Zipcode Phone Number [facility] * XR abdomen / KUB 1 view (12/04/2017 3:58 PM CDT) Specimen Narrative Performed At FINAL REPORT [facility] CLINICAL HISTORY: abd pain status post colonoscopy [...] them to the physician. Signed: Gerry Lion MD Report Verified Date/Time:12/04/2017 16:43:26 Reading Location: [address] Consult Reading Room Procedure Note Interface, External Ris In - 12/04/2017 4:45 PM CDT FINAL REPORT CLINICAL HISTORY: abd pain status post colonoscopy TECHNIQUE: Upright AP abdomen COMPARISON: None IMPRESSION: Lucency beneath the diaphragm is compatible with pneumoperitoneum/free air in the abdomen. There are surgical clips in the left epigastric region. The bowel gas pattern is otherwise nonspecific. The findings were discussed with nurse Garcia on 20T at the time of dictation who will relay them to the physician. Signed: Gerry Lion MD Report Verified Date/Time: 12/04/2017 16:43:26 Reading Location: [address] Consult Reading Room Performing Organization Address City/State/Zipcode Phone Number [facility] * REPORT OF PROCEDURE - ENDOSCOPY URL (12/03/2017 8:01 PM CDT) Narrative Performed At * Tissue Exam (12/03/2017 9:29 AM CDT) Case Report Surgical Pathology [facility] Report [facility] Case: [id number] Authorizing Provider:Ricardo Ireland Collected: 12/03/2017 0929 MD Barry Ordering Location: [facility] Endoscopy Received: 12/03/2017 1441 Services Pathologist: Chika Bradford MD Specimen:Polyp, Colon - Right/Ascending, POLYP-TAKEN BY ESD. EVALUATE MARGINS DIAGNOSIS COLON, ASCENDING, ENDOSCOPIC [facility] SUBMUCOSAL DISSECTION OF POLYP [facility] - SESSILE SERRATED POLYP/ADENOMA - NEGATIVE FOR CYTOLOGIC ATYPIA - NEGATIVE FOR INVASIVE ADENOCARCINOMA - POLYP EXTENDS TO PERIPHERAL MUCOSAL MARGIN - see comment Signing Pathologist Direct Phone Line: [phone] COMMENT Endoscopic correlation is [facility] recommended to determine [facility] completeness of excision of the polyp. CPT Code(s) 259[address] [facility] CLINICAL HISTORY Ascending colon polyp [facility] SPECIMEN SOURCE Right/ascending colon polyp [facility] GROSS DESCRIPTION Received in formalin labeled [facility] "polyp, colon right/ascending" [facility] is a 3.6 x 3.0 cm irregular mucous covered fragment of soft tissue excised to a depth of 0.2 cm. The mucosal surface is purple-noland to paul-white, dusky and nodular. Sectioning reveals no firm areas. Ink code: peripheral resection margins - blue; deep margin - black. The specimen is entirely sequentially submitted in cassettes A1-A8. DB/pl MICROSCOPIC DESCRIPTION All sections A1-A8 show [facility] involvement by sessile [facility] serrated polyp extending to peripheral mucosa margins. No cytologic atypia or invasive adenocarcinoma is seen. Specimen Tissue - Polyp, Colon - Right/Ascending Performing Organization Address City/State/Zipcode Phone Number [place] [phone] [place] [address] [facility] after 11/04/2017 Insurance Payer Benefit Subscriber ID Type Phone Address Plan / Group [facility] xxxxxxxxxxx MEDICARE ADV Advance Directives For more information, please contact: [address] [address] Date Inactivated Comments Code Status Date Activated 12/08/2017 12:05 PM Full Code 12/03/2017 3:14 PM This code status was determined by: Patient 02/26/2016 4:53 PM Full Code 02/18/2016 6:46 AM This code status was determined by: Patient
[2018-11-05] MEDS ORDERED: CEFEPIME 1GM/NS 0.9% 50 ML 50 ML IV STA (19:12)
[2018-11-05] MEDS ORDERED: SODIUM CHLORIDE 0.9% 1000ML 1,000 ML IV STA (19:12)
[2018-11-05] MEDS ORDERED: METHYLPREDNISOLONE SOD SUCC 125 MG/2ML VIAL ONE (19:40)
[2018-11-05 19:42] LABS: BASOPHILS # (AUTO) 0.1 (0.0-0.1); BASOPHILS % 0.5 % (0.0-1.0); EOSINOPHILS # (AUTO) 0.1 (0.0-0.4); EOSINOPHILS % 0.6 % (0.0-6.0); HEMATOCRIT 44.4 % (34.2-44.1); LYMPHOCYTES % 6.5 % (18.0-39.1); MEAN CORPUSCULAR HEMOGLOBIN 29.5 pg (28-32); MEAN CORPUSCULAR HGB CONC 33.8 g/dL (31-35); MEAN CORPUSCULAR VOLUME 87.4 fL (81-99); MONOCYTES % 6.8 % (4.4-11.3); NEUTROPHILS # (AUTO) 12.8 (2.1-6.9); NEUTROPHILS % 84.5 % (38.7-80.0); PLATELET COUNT 247 x10e3/uL (140-360); RED BLOOD COUNT 5.08 x10e6/uL (3.6-5.1); RED CELL DISTRIBUTION WIDTH 13.7 % (11.7-14.4)
[2018-11-05] MEDS ORDERED: ALBUTEROL/IPRATROPIUM 3 ML NEB NEB ONE (19:45)
[2018-11-05 19:57] LABS: ALANINE AMINOTRANSFERASE 27 IU/L (0-55); ALBUMIN 4.3 g/dL (3.5-5.0); ALBUMIN/GLOBULIN RATIO 1.4 (0.8-2.0); ALKALINE PHOSPHATASE 97 IU/L (40-150); ANION GAP 18.2 mmol/L (8-16); BLOOD UREA NITROGEN 23 mg/dL (7-26); BUN/CREATININE RATIO 29 (6-25); CALCIUM 9.7 mg/dL (8.4-10.2); CARBON DIOXIDE 26 mmol/L (22-29); CHLORIDE 99 mmol/L (98-107); CREATINE KINASE 61 IU/L (29-168); CREATININE, SERUM 0.78 mg/dL (0.57-1.11); EST GLOMERULAR FILTRATION RATE > 60 ML/MIN (60-); GLUCOSE 113 mg/dL (74-118); LIPASE 6 U/L (8-78); POTASSIUM 4.2 mmol/L (3.5-5.1); SODIUM 139 mmol/L (136-145)
[2018-11-05] MEDS ORDERED: VANCOMYCIN 1GM/NS 250 ML 250 ML IV ONE (20:00)
--- NOTE | 2018-11-05 20:12 | Diagnostic Imaging Report ---
A single frontal view of the chest. HISTORY: Pneumonia COMPARISON: Chest radiograph April 27, 2014. DISCUSSION: Portable technique, limits sensitivity of the exam. Multiple overlying artifacts. Tubes/Lines: None Lungs and pleura: The mid to upper lungs are markedly hyperinflated. Bilateral mid to lower lung prominent peribronchial interstitial markings. Otherwise, no consolidative pneumonia. No definite pleural effusion or pneumothorax is identified. Heart and mediastinum: The cardiomediastinal silhouette appear(s) unremarkable. Bones and soft tissues: Diffusely decreased mineralization of the osseous structures limits bone detail. IMPRESSION: 1. Findings remain compatible with chronic obstructive lung disease, the bronchitis component appears more prominent versus the comparison. 2. No focal consolidative pneumonia. Signed by: Dr. Benjamin Barrett D.O., M.M.M. on 11/05/2018 8:08 PM
[2018-11-05] MEDS ORDERED: ACETAMINOPHEN 325 MG TAB PO ONE (21:00)
[2018-11-05] MEDS ORDERED: MAGNESIUM SULFATE 2GM/50ML 50 ML IV ONE (21:30)
[2018-11-05] MEDS ORDERED: METHYLPREDNISOLONE SOD SUCC 125 MG/2ML VIAL IV ONE (21:30)
[2018-11-05] MEDS ORDERED: HYDROCODONE/APAP 10MG-325MG TAB PO ONE (21:45)
[2018-11-05] MEDS ORDERED: ASPIRIN 81 MG CHEW TAB PO ONE (22:30)
[2018-11-05] MEDS ORDERED: AZITHROMYCIN 500MG/NS 250 ML 250 ML IV SCH (22:30)
[2018-11-05] MEDS ORDERED: CEFTRIAXONE SOD 1 GM VIAL IV SCH (22:30)
--- OUTSIDE RECORDS SUMMARY | 2018-11-05 23:01 | XMS REPORT | Clinical Summary ---
Author Author [facility] Address Unknown Phone Unavailable Care Team Providers Care Manager Ecommerce Name Role Phone Sharpless PCP Allergies Comments [...] Area Manufactur er 05/09/2018 4301-02 / / [id number] Memb Seprafilm Adhen Preston 5x6 Cement/Gonzalez N/A: Abdomen GENZYME 4301-02 - [id number] ler/Adhesi MARTINEZ: Implanted: Qty: 2 on 02/18/2016 [...] Lipase 6 (L) 8 - 78 U/L [facility] Specimen Blood Performing Organization Address City/State/Zipcode Phone Number [facility] [address] [place] [address] [phone] [place] [address] * Hepatic function panel (12/07/2017 4:17 PM CDT) Protein, Total 5.6 (L) 6.0 - 8.3 gm/dL [facility] Albumin 3.5 3.5 - 5.0 g/dL [facility] Total Bilirubin 0.6 0.2 - 1.2 mg/dL [facility] Bilirubin, Direct 0.3 0.1 - 0.5 mg/dL [facility] Alkaline Phosphatase 67 40 - 150 U/L [facility] AST 24 5 - 34 U/L [facility] ALT 18 6 - 55 U/L [facility] Specimen Blood Performing Organization Address City/State/Zipcode Phone Number [facility] [address] [place] [address] [facility] * CBC with platelet count + automated diff (12/07/2017 4:20 AM CDT) Only the most recent of 4 results within the time period is included. WBC 4.5 3.5 - 10.5 K/L [facility] RBC 4.13 3.93 - 5.22 M/L [facility] Hemoglobin 11.7 11.2 - 15.7 GM/DL [facility] Hematocrit 38.0 34.1 - 44.9 % [facility] MCV 92.0 79.4 - 94.8 fL [facility] MCH 28.3 25.6 - 32.2 pg [facility] MCHC 30.8 (L) 32.2 - 35.5 GM/DL [facility] RDW 13.9 11.7 - 14.4 % [facility] Platelets 150 150 - 450 K/CU MM [facility] MPV 10.7 9.4 - 12.3 fL [facility] nRBC 0 0 - 0 /100 WBC [facility] % Neutros 75 % [facility] % Lymphs 12 % [facility] % Monos 7 % [facility] % Eos 4 % [facility] % Baso 1 % [facility] # Neutros 3.38 1.56 - 6.13 K/L [facility] # Lymphs 0.52 (L) 1.18 - 3.74 K/L [facility] # Monos 0.31 0.24 - 0.36 K/L [facility] # Eos 0.19 0.04 - 0.36 K/L [facility] # Baso 0.03 0.01 - 0.08 K/L [facility] Immature 1 0 - 1 % [facility] Granulocytes-[facility] Specimen Blood Performing Organization Address City/State/[place] [address] [phone] [place] [address] * Magnesium (12/07/2017 4:20 AM CDT) Only the most recent of 3 results within the time period is included. Magnesium 1.9 1.6 - 2.6 mg/dL [facility] Specimen Blood Performing Organization Address City/State/Zipcode Phone Number [facility] [address] [place] [address] [facility] * Basic Metabolic Panel (12/07/2017 4:20 AM CDT) Only the most recent of 4 results within the time period is included. Sodium 143 136 - 145 meq/L [facility] Potassium 3.5 3.5 - 5.1 meq/L [facility] Chloride 108 (H) 98 - 107 meq/L [facility] CO2 29 22 - 29 meq/L [facility] BUN 6 (L) 7 - 21 mg/dL [facility] Creatinine 0.63 0.57 - 1.25 mg/dL [facility] Glucose 97 70 - 105 mg/dL [facility] Calcium 8.6 8.4 - 10.2 mg/dL [facility] EGFR 95Comment: ESTIMATED GFR IS mL/min/1.73 sq m [facility] NOT ACCURATE CREATININE [facility] CLEARANCE IN PREDICTING GLOMERULAR FILTRATION RATE. ESTIMATED GFR IS NOT APPLICABLE FOR DIALYSIS PATIENTS. Specimen Blood Performing Organization Address City/State/Zipcode Phone Number [facility] [address] [place] [address] [address] * CT abdomen/pelvis without & with IV contrast (12/05/2017 1:41 AM CDT) Specimen Narrative Performed At FINAL REPORT [employer] EXAMINATION:CT SCAN OF THE ABDOMEN AND PELVIS [...] MD Report Verified Date/Time:12/05/2017 03:16:22 Reading Location: [address] Reading Room Procedure Note Interface, External [...] Report Verified Date/Time: 12/05/2017 03:16:22 Reading Location: [address] Reading Room Performing Organization Address City/State/Zipcode Phone Number [employer] [facility] * XR abdomen / KUB 1 [...] MD Report Verified Date/Time:12/04/2017 16:43:26 Reading Location: [address] Consult Reading Room Procedure Note Interface, [...] Report Verified Date/Time: 12/04/2017 16:43:26 Reading Location: [address] Consult Reading Room Performing Organization Address City/State/Zipcode Phone Number [facility] * REPORT OF PROCEDURE - ENDOSCOPY URL (12/03/2017 8:01 PM CDT) Narrative Performed At * Tissue Exam (12/03/2017 9:29 AM CDT) Case Report Surgical Pathology [facility] Report [facility] Case: [id number] Authorizing Provider:Ricardo Ireland Collected: 12/03/2017 0929 MD Barry Ordering Location: [facility] Endoscopy Received: 12/03/2017 1441 Services Pathologist: Chika Bradford MD Specimen:Polyp, Colon - Right/Ascending, POLYP-TAKEN BY ESD. EVALUATE MARGINS DIAGNOSIS COLON, ASCENDING, ENDOSCOPIC [facility] SUBMUCOSAL DISSECTION OF POLYP [facility] - SESSILE SERRATED POLYP/ADENOMA - NEGATIVE FOR CYTOLOGIC ATYPIA - NEGATIVE FOR INVASIVE ADENOCARCINOMA - POLYP EXTENDS TO PERIPHERAL MUCOSAL MARGIN - see comment Signing Pathologist Direct Phone Line: [phone] COMMENT Endoscopic correlation is [facility] recommended to determine [facility] completeness of excision of the polyp. CPT Code(s) 12205 [facility] CLINICAL HISTORY Ascending colon polyp [facility] SPECIMEN SOURCE Right/ascending colon polyp [facility] GROSS DESCRIPTION Received in formalin labeled [facility] "polyp, colon right/ascending" [facility] is a 3.6 x 3.0 [...] DB/pl MICROSCOPIC DESCRIPTION All sections A1-A8 show [facility] involvement by sessile [facility] serrated polyp extending to peripheral mucosa margins. No cytologic atypia or invasive adenocarcinoma is seen. Specimen Tissue - Polyp, Colon - Right/Ascending Performing Organization Address City/State/Zipcode Phone Number [place] [phone] [place] [address] [facility] after 11/04/2017 Insurance Payer Benefit Subscriber ID Type Phone Address Plan / Group [facility] xxxxxxxxxxx MEDICARE ADV Advance Directives For more information, please contact: [address] [address] Date Inactivated Comments Code Status Date Activated 12/08/2017 12:05 PM Full Code 12/03/2017 3:14 PM This code status was determined by: Patient 02/26/2016 4:53 PM Full Code 02/18/2016 6:46 AM This code status was determined by: Patient
[2018-11-06] MEDS ORDERED: ONDANSETRON HCL INJ 2MG/ML 2ML 2 MG/ML VIAL ONE (00:52)
[2018-11-06] MEDS ORDERED: ACETAMINOPHEN 325 MG TAB PO PRN (01:30)
[2018-11-06] MEDS ORDERED: PEPCID20 MG PO (01:47)
[2018-11-06] MEDS ORDERED: GABAPENTIN300 MG PO (01:47)
[2018-11-06] MEDS ORDERED: TIZANIDINE HCL4 MG PO (01:47)
[2018-11-06] MEDS ORDERED: OMEPRAZOLE40 MG PO (01:47)
[2018-11-06] MEDS ORDERED: NORCO 10-325 T1 EACH PO (01:47)
[2018-11-06] MEDS ORDERED: DALIRESP500 MCG PO (01:47)
[2018-11-06 02:06] LABS: BILIRUBIN,URINE NEGATIVE (NEGATIVE); CLARITY,URINE CLEAR (CLEAR); COLOR,URINE YELLOW (YELLOW); KETONES,URINE NEGATIVE (NEGATIVE); LEUKOCYTE ESTERASE ,URINE NEGATIVE (NEGATIVE); NITRITE,URINE NEGATIVE (NEGATIVE); PROTEIN,URINE DIPSTICK TRACE (NEGATIVE); URINE UROBILINOGEN 0.2 mg/dL (0.2 - 1)
[2018-11-06] MEDS ORDERED: SODIUM CHLORIDE 0.9% 0 ML ONE (02:35)
[2018-11-06] MEDS ORDERED: CEFTRIAXONE SOD 1 GM/NS 50 ML 50 ML IV ONE (02:37)
[2018-11-06] MEDS: ONDANSETRON HCL INJ 2MG/ML 2ML 2 MG/ML VIAL IV STA ×2 (02:41→04:50)
[2018-11-06] MEDS ORDERED: CEFTRIAXONE SOD 1 GM/NS 50 ML 50 ML IV SCH (02:45)
[2018-11-06 02:50] LABS: BACTERIA,URINE MODERATE /HPF; EPITHELIAL CELLS,URINE MODERATE /LPF; WBC,URINE (MAN) 0-5 /HPF (0-5)
[2018-11-06] MEDS: ALBUTEROL/IPRATROPIUM 3 ML NEB NEB PRN ×6 (02:50→23:38)
[2018-11-06 04:26] LABS: CREATINE KINASE MB 3.6 ng/mL (0-5.0)
[2018-11-06] MEDS ORDERED: ONDANSETRON HCL INJ 2MG/ML 2ML 2 MG/ML VIAL IV PRN (05:00)
[2018-11-06] MEDS ORDERED: METHYLPREDNISOLONE SOD SUCC 125 MG/2ML VIAL IV SCH (06:00)
[2018-11-06 06:18] VITALS: BP 131/71
[2018-11-06 06:49] LABS: BASOPHILS % 0.2 % (0.0-1.0); HEMATOCRIT 40.4 % (34.2-44.1); HEMOGLOBIN 13.1 g/dL (12.0-16.0); LYMPHOCYTES # (AUTO) 0.4 (1.0-3.2); LYMPHOCYTES % 4.5 % (18.0-39.1); MEAN CORPUSCULAR HEMOGLOBIN 29.2 pg (28-32); MEAN CORPUSCULAR HGB CONC 32.4 g/dL (31-35); MONOCYTES # (AUTO) 0.1 (0.2-0.8); MONOCYTES % 1.2 % (4.4-11.3); NEUTROPHILS # (AUTO) 8.2 (2.1-6.9); NEUTROPHILS % 92.3 % (38.7-80.0); PLATELET COUNT 160 x10e3/uL (140-360); RED BLOOD COUNT 4.49 x10e6/uL (3.6-5.1); RED CELL DISTRIBUTION WIDTH 13.7 % (11.7-14.4)
--- NOTE | 2018-11-06 06:57 | NUR ---
BEDSIDE ROUNDING COMPLETE AT THIS TIME WITH CASIE CHANEY. PATIENT RESTING IN BED. CALL LIGHT IS IN REACH.
[2018-11-06 07:00] LABS: BLOOD UREA NITROGEN 26 mg/dL (7-26); BUN/CREATININE RATIO 36 (6-25); CALCIUM 8.9 mg/dL (8.4-10.2); CARBON DIOXIDE 27 mmol/L (22-29); CHLORIDE 105 mmol/L (98-107); CREATININE, SERUM 0.73 mg/dL (0.57-1.11); EST GLOMERULAR FILTRATION RATE > 60 ML/MIN (60-); GLUCOSE 125 mg/dL (74-118); SODIUM 139 mmol/L (136-145)
[2018-11-06 07:31] LABS: BAND NEUTROPHILS % (MANUAL) 1 %; LYMPHOCYTES % (MANUAL) 4 % (19-48); MONOCYTES % (MANUAL) 1 % (3.4-9.0); NEUTROPHILS % (MANUAL) 94 % (40-74); PLATELET ESTIMATE ADEQUATE; PLATELET MORPHOLOGY COMMENT NORMAL; RBC MORPHOLOGY COMMENT NORMAL
[2018-11-06 08:20] VITALS: BP 108/60
[2018-11-06] MEDS: NICOTINE 21 MG/EA PATCH TOP SCH (08:25)
[2018-11-06 08:37] VITALS: BP 108/60
[2018-11-06 11:42] LABS: CREATINE KINASE MB 4.2 ng/mL (0-5.0)
[2018-11-06 11:59] VITALS: BP 113/64
[2018-11-06] MEDS: CEFEPIME 1GM/NS 0.9% 50 ML 50 ML IV SCH ×2 (14:00→22:00)
--- NOTE | 2018-11-06 14:06 | NUR ---
Nutrition Screen Note RD Recommendation for Physician: Continue diet as ordered Plan of Care: RD following, monitoring for tolerance and adequacy Nutrition reason for involvement: Nutrition Risk Trigger - MST Primary Diagnose(s):Pneumonia PMH: COPD Ht: 62in Wt:107lb BMI: 19.6kg/m2 IBW:110lb +/-10% RD Assessment: (11/06/2018) Chart reviewed. Labs and meds reviewed. Initial encounter with patient. Pt denies any nausea, vomiting or diarrhea. Pt is eating well [employer], but has limited acceptance of meals at [facility]. Pt denies any wt changes. Pt was experiencing some nausea, but it has resolved. Current Diet: Cardiac diet Malnutrition Evaluation (11/06/2018) The patient does not meet criteria for a specified degree of malnutrition at this time. Will re-evaluate at follow-up as appropriate. Diet instruction is not indicated Nutrition Care Level: Low Signed: Jareth Mcintosh RD, LD, [facility]
[2018-11-06] MEDS: LACTOBACILLUS ACIDOPHILUS CAPSULE PO SCH (16:19)
[2018-11-06] MEDS: TIZANIDINE HCL 4 MG TAB PO SCH ×2 (16:19→20:38)
[2018-11-06] MEDS: GABAPENTIN 300 MG CAP PO SCH ×2 (16:19→20:38)
[2018-11-06 16:47] VITALS: BP 116/67
--- NOTE | 2018-11-06 19:05 | NUR ---
Patient visited in room during nursing rounds. Patient alert and oriented x3. On 2L NC. Ambulatory with standby assist prn. No distress or discomfort noted at this time. Call ornelas within reach. Will monitor pt closely.
[2018-11-06 20:00] VITALS: BP 94/58
[2018-11-06] MEDS: HEPARIN SOD (PORCINE) 5,000 UNIT/ML VIAL SC SCH (20:38)
[2018-11-07] VITALS (7 sets, daily range): BP systolic 90–134; BP diastolic 52–69
[2018-11-07] MEDS: AZITHROMYCIN 500MG/NS 250 ML 250 ML IV SCH (03:00)
[2018-11-07] MEDS: ALBUTEROL/IPRATROPIUM 3 ML NEB NEB PRN ×6 (04:50→23:30)
[2018-11-07] MEDS: CEFEPIME 1GM/NS 0.9% 50 ML 50 ML IV SCH ×3 (06:08→21:25)
[2018-11-07] MEDS: TIOTROPIUM 18 MCG INH POWDER INH SCH (07:00)
--- NOTE | 2018-11-07 07:30 | NUR ---
Bedside rounding completed and the pt received form the off-going nurse. The pt. denies pain or discomfort at this time and states she is just sleepy as the neighbor across the hallway was unsettled most of the night and she did not sleep.
[2018-11-07] MEDS: PREDNISONE 20 MG TAB PO SCH (08:43)
[2018-11-07] MEDS: LACTOBACILLUS ACIDOPHILUS CAPSULE PO SCH ×2 (08:43→17:17)
[2018-11-07] MEDS: GABAPENTIN 300 MG CAP PO SCH ×3 (08:43→21:25)
[2018-11-07] MEDS: TIZANIDINE HCL 4 MG TAB PO SCH ×3 (08:44→21:25)
[2018-11-07] MEDS: NICOTINE 21 MG/EA PATCH TOP SCH (08:44)
[2018-11-07] MEDS: HEPARIN SOD (PORCINE) 5,000 UNIT/ML VIAL SC SCH ×2 (08:45→21:00)
--- NOTE | 2018-11-07 19:05 | NUR ---
Patient visited in room during nursing rounds. Patient alert and oriented x3. On 2L NC. Ambulatory with standby assist prn. No distress or discomfort noted at this time. On scheduled breathing treatments and IV antibiotics. Call ornelas within reach. Will monitor pt closely.
[2018-11-08] VITALS (8 sets, daily range): BP systolic 95–110; BP diastolic 51–62
[2018-11-08] MEDS: AZITHROMYCIN 500MG/NS 250 ML 250 ML IV SCH (02:00)
[2018-11-08] MEDS: ALBUTEROL/IPRATROPIUM 3 ML NEB NEB PRN ×6 (03:05→23:20)
[2018-11-08] MEDS: CEFEPIME 1GM/NS 0.9% 50 ML 50 ML IV SCH ×3 (06:19→21:08)
[2018-11-08] MEDS: TIOTROPIUM 18 MCG INH POWDER INH SCH (06:50)
--- NOTE | 2018-11-08 07:13 | NUR ---
Received patient lying in bed with eyes open. Respiration even and unlabored without SOB. Call light in reach.
[2018-11-08] MEDS: NICOTINE 21 MG/EA PATCH TOP SCH (09:00)
[2018-11-08] MEDS: HEPARIN SOD (PORCINE) 5,000 UNIT/ML VIAL SC SCH ×2 (09:00→21:08)
[2018-11-08] MEDS: GABAPENTIN 300 MG CAP PO SCH ×3 (09:30→21:07)
[2018-11-08] MEDS: LACTOBACILLUS ACIDOPHILUS CAPSULE PO SCH ×2 (09:30→16:27)
[2018-11-08] MEDS: PREDNISONE 20 MG TAB PO SCH (09:30)
[2018-11-08] MEDS: TIZANIDINE HCL 4 MG TAB PO SCH ×3 (09:31→21:08)
--- NOTE | 2018-11-08 19:22 | NUR ---
Report given to night auditor. Respiration even and unlabored without SOB. 2L O2 via NC is on.. Call light in reach.
--- NOTE | 2018-11-08 19:25 | NUR ---
PT IS RESTING IN BED WITH FAMILY AT BEDSIDE. RESPIRATION IS EVEN AND UNLABORED, NO DISTRESS NOTED. BED IN THE LOWEST POSITION, LOCKED, AND CALL LIGHT WITHIN REACH. WILL CONTINUE TO MONITOR.
[2018-11-09] VITALS (8 sets, daily range): BP systolic 88–128; BP diastolic 52–61
[2018-11-09] MEDS: AZITHROMYCIN 500MG/NS 250 ML 250 ML IV SCH (02:16)
[2018-11-09] MEDS: ALBUTEROL/IPRATROPIUM 3 ML NEB NEB PRN ×3 (03:12→11:14)
[2018-11-09] MEDS: CEFEPIME 1GM/NS 0.9% 50 ML 50 ML IV SCH ×3 (05:58→21:03)
[2018-11-09] MEDS: NICOTINE 21 MG/EA PATCH TOP SCH (09:00)
[2018-11-09] MEDS: GABAPENTIN 300 MG CAP PO SCH ×3 (09:56→20:32)
[2018-11-09] MEDS: TIZANIDINE HCL 4 MG TAB PO SCH ×3 (09:57→20:32)
[2018-11-09] MEDS: LACTOBACILLUS ACIDOPHILUS CAPSULE PO SCH ×2 (09:57→15:25)
[2018-11-09] MEDS: PREDNISONE 20 MG TAB PO SCH (09:57)
[2018-11-09] MEDS: HEPARIN SOD (PORCINE) 5,000 UNIT/ML VIAL SC SCH ×2 (11:01→21:06)
[2018-11-09] MEDS: TIOTROPIUM 18 MCG INH POWDER INH SCH (11:24)
[2018-11-09] MEDS: ALBUTEROL/IPRATROPIUM 3 ML NEB NEB SCH ×2 (13:00→19:53)
[2018-11-09] MEDS: ACETYLCYSTEINE 20% INHAL SOLN 30 ML VIAL INH SCH ×2 (13:00→19:53)
[2018-11-09] MEDS: METHYLPREDNISOLONE SOD SUCC 40 MG/ML VIAL 1ML IV SCH ×2 (15:25→21:03)
--- NOTE | 2018-11-09 15:38 | Diagnostic Imaging Report ---
EXAM: CT Chest WITHOUT intravenous contrast 11/09/2018 11:49 AM INDICATION: Shortness of breath COMPARISON: Chest radiograph of 11/05/2018 TECHNIQUE: Chest was scanned utilizing a multidetector helical scanner from the lung apex through the level of the adrenal glands without administration of IV contrast. Coronal and sagittal reformations were obtained. Routine protocol was performed. IV CONTRAST: None RADIATION DOSE: Total DLP: 265.3 mGy*cm. Dose modulation, iterative reconstruction, and/or weight based adjustment of the mA/kV was utilized to reduce the radiation dose to as low as reasonably achievable. COMPLICATIONS: None FINDINGS: LINES/ TUBES: None. LUNGS AND AIRWAYS: The central airways are patent. The lungs are hyperinflated. There is severe bilateral upper lobe predominant centrilobular and paraseptal emphysema. Mild biapical pleural parenchymal thickening/scarring. No focal consolidation or pulmonary edema. No suspicious pulmonary nodules. PLEURA: No pleural effusion or pneumothorax. HEART AND MEDIASTINUM: The thyroid gland is normal. No supraclavicular, mediastinal, hilar, or axillary lymphadenopathy. The heart is not enlarged. No pericardial effusion. Atherosclerotic calcifications involve the coronary arteries, aorta, and great vessels. UPPER ABDOMEN: Limited noncontrast images of the upper abdomen. Subcentimeter hypodensity at the hepatic dome may represent a cyst. Scattered hypodensities in the spleen are nonspecific and may represent sequela of prior trauma or infection. No abnormality of the partially visualized kidneys and adrenals. No focal mass or ductal dilation of the partially visualized pancreas. BONES: Age-indeterminate compression fracture of T6 with associated exaggerated thoracic kyphosis. Mild diffuse osteopenia. No suspicious lytic or blastic lesions. SOFT TISSUES: Unremarkable. IMPRESSION: Hyperinflated lungs with severe bilateral upper lobe predominant centrilobular and paraseptal emphysema. Atherosclerotic calcifications of the coronary arteries, aorta and great vessels. Age-indeterminate compression fracture of T6 with associated exaggerated thoracic kyphosis. Signed by: Agustina Diaz MD on 11/09/2018 3:35 PM
[2018-11-09] MEDS: HYDROCODONE/APAP 10MG-325MG TAB PO PRN (18:00)
--- NOTE | 2018-11-09 18:45 | Consultation ---
DATE OF CONSULTATION: Pulmonary Consultation REASON FOR CONSULT: COPD. HISTORY OF PRESENT ILLNESS: Ms. Singleton is a 67-year-old female. She presented to the emergency room with shortness of breath. She is a smoker. She follows up at [facility]. She came in on . She had a chest x-ray done, which showed hyperinflation, bullous lung disease, and possible infiltrate, but no focal consolidation. Her T-max was 100.8 when she came in. She denies any chest pain, nausea, or vomiting. She is on Spiriva and DuoNeb. She is on p.o. prednisone and cefepime and azithromycin. However, she is still having wheezing and shortness of breath. She uses 2 L oxygen at home. She reports that the shortness of breath and wheezing is mostly on exertion. It was initially episodic, then became constant and is more than her baseline. It is associated with cough, which is nonproductive. She denies any chest pain, nausea, or vomiting. REVIEW OF SYSTEMS: GENERAL: Denies any fever or chills. HEAD: Denies any head trauma. ENT: Denies any earache. CVS: Denies any chest pain. RESPIRATORY: Shortness of breath. GI: Denies any nausea or vomiting. The rest of the review of systems are negative except as in HPI. PAST MEDICAL HISTORY: COPD, history of respiratory failure in the past and intubation, allergic rhinitis, anxiety, and depression. FAMILY AND SOCIAL HISTORY: She still smokes, has been a smoker for 50 years, close to one-pack per day. PHYSICAL EXAMINATION: VITAL SIGNS: Temperature 97.8, pulse of 88, blood pressure 110/55, and respiratory rate of 18. HEENT: Head is atraumatic and normocephalic. NECK: Supple. CHEST: Markedly reduced air entry bilaterally. HEART: S1 and S2 audible. ABDOMEN: Soft and nontender. EXTREMITIES: No pedal edema. NEUROLOGICAL: She is awake and alert. No focal neurologic deficit. LABORATORY DATA: White count of 8000, hemoglobin 13.1, and platelets 160. Chemistry is within normal limits. Chest x-ray is not showing any focal infiltrate. ASSESSMENT/PLAN: Ms. Singleton is a 67-year-old female with severe chronic obstructive pulmonary disease exacerbation, and shortness of breath, current problem: 1. [id number] hypoxic respiratory failure. 2. Chronic obstructive pulmonary disease exacerbation. 3. Weakness. 4. Smoker. PLAN: Agree with cefepime and azithromycin. I will discontinue p.o. prednisone. Start the patient on IV Solu-Medrol and change the nebulizer treatment to scheduled nebulizer treatment. She is on p.r.n. Also, we will start Mucomyst, hopefully that will help her breathe better. Since the patient has almost 40 plus years of smoking history, I will do a CT chest without contrast. MD CLEMENTINA Ramos/ZOILA /[id number]
--- NOTE | 2018-11-09 19:08 | NUR ---
PT IS RESTING IN BED. RESPIRATION IS EVEN AND UNLABORED, NO DISTRESS NOTED. BED IN THE LOWEST POSITION, LOCKED, AND CALL LIGHT WITHIN REACH. WILL CONTINUE TO MONITOR.
[2018-11-10] VITALS (8 sets, daily range): BP systolic 89–115; BP diastolic 57–79
[2018-11-10] MEDS: ACETYLCYSTEINE 20% INHAL SOLN 30 ML VIAL INH SCH ×4 (00:47→20:39)
[2018-11-10] MEDS: ALBUTEROL/IPRATROPIUM 3 ML NEB NEB SCH ×4 (00:47→20:39)
[2018-11-10] MEDS: AZITHROMYCIN 500MG/NS 250 ML 250 ML IV SCH (01:49)
[2018-11-10] MEDS: CEFEPIME 1GM/NS 0.9% 50 ML 50 ML IV SCH ×3 (05:15→21:15)
[2018-11-10] MEDS: METHYLPREDNISOLONE SOD SUCC 40 MG/ML VIAL 1ML IV SCH ×3 (05:15→21:15)
[2018-11-10] MEDS: TIOTROPIUM 18 MCG INH POWDER INH SCH (08:01)
[2018-11-10] MEDS: NICOTINE 21 MG/EA PATCH TOP SCH (09:00)
[2018-11-10] MEDS: LACTOBACILLUS ACIDOPHILUS CAPSULE PO SCH ×2 (09:18→15:43)
[2018-11-10] MEDS: TIZANIDINE HCL 4 MG TAB PO SCH ×3 (09:18→21:15)
[2018-11-10] MEDS: GABAPENTIN 300 MG CAP PO SCH ×3 (09:18→21:15)
[2018-11-10] MEDS: HEPARIN SOD (PORCINE) 5,000 UNIT/ML VIAL SC SCH ×2 (11:46→21:15)
--- NOTE | 2018-11-10 12:44 | Progress Note ---
DATE: 11/10/2018 CHIEF COMPLAINT: Chronic obstructive pulmonary disease and pneumonia. SUBJECTIVE: Complains of wheezing and shortness of breath, especially with exertion. Denies any fever, chills, nausea, or vomiting. OBJECTIVE: VITAL SIGNS: Temperature 97.8, pulse is 88, blood pressure is 110/55, respirations 20, and pulse ox is 100% on 2 L of O2. GENERAL: No acute distress. HEENT: Neck is supple. Normocephalic and atraumatic. LUNGS: Decreased breath sounds. Wheezing in the lower lobes. CARDIOVASCULAR: Normal rate and rhythm. ABDOMEN: Soft and nontender. NEURO: Alert, awake, and oriented x3. MUSCULOSKELETAL: Generalized weakness. SKIN: Dry and intact with no gross abnormalities. LABORATORY DATA: Reviewed. IMPRESSION AND PLAN: 1. Pneumonia, failure outpatient antibiotics. 2. Sepsis, present on admission. Continue on IV antibiotics, cefepime and azithromycin. Dr. Lawson has been consulted. Has started the patient on Solu-Medrol 20 mg q.8 hours IV. Imaging reviewed. 3. Chronic respiratory failure due to chronic obstructive pulmonary disease. 4. Moderate malnutrition due to poor p.o. intake. 5. Chronic back pain. We will continue with pain management as needed and we will consult Physical Therapy to evaluate and treat. 6. Gastrointestinal and deep venous thrombosis prophylaxis with heparin subcu. 7. We will continue IV antibiotics and neb treatments and have Physical Therapy evaluate and treat. Dictated by RIANNA Cruz Valentín Tineo MD MY/MODL /[id number] Seen and examined, discussed with Dr. Lawson, possibly home tomorrow. Agree with the findings and plan as documented by RIANNA Garrett. BRIGIDO
--- NOTE | 2018-11-10 21:15 | NUR ---
PATIENT IS RESTING IN BED, NO RESPIRATORY DISTRESS NOTED. PATIENT VOICED THAT SHE IS STILL WAITING FOR RESPIRATORY TREATMENTS AND I CALLED THE VAPOR COATER FOR ORDERS. NASAL CANNULA IS INTACT AND RUNNING AT 2 LITERS. BED IN LOWEST POSITION, BOTH SIDE RAILS ARE UP, CALL LIGHT WITHIN EASY REACH, WILL CONTINUE TO MONITOR.
[2018-11-10] MEDS: HYDROCODONE/APAP 10MG-325MG TAB PO PRN (22:04)
--- NOTE | 2018-11-10 22:05 | NUR ---
RESPIRATORY TREATMENT BEING ADMINISTERED TO PATIENT.
[2018-11-11] VITALS: BP 97/59
[2018-11-11] MEDS: ALBUTEROL/IPRATROPIUM 3 ML NEB NEB SCH ×3 (00:17→14:40)
[2018-11-11] MEDS: ACETYLCYSTEINE 20% INHAL SOLN 30 ML VIAL INH SCH ×2 (00:17→07:55)
[2018-11-11] MEDS: AZITHROMYCIN 500MG/NS 250 ML 250 ML IV SCH (02:16)
[2018-11-11 04:00] VITALS: BP 112/66
[2018-11-11] MEDS: CEFEPIME 1GM/NS 0.9% 50 ML 50 ML IV SCH (06:40)
[2018-11-11] MEDS: TIOTROPIUM 18 MCG INH POWDER INH SCH (06:40)
[2018-11-11] MEDS: METHYLPREDNISOLONE SOD SUCC 40 MG/ML VIAL 1ML IV SCH (06:40)
[2018-11-11 07:30] VITALS: BP 106/79
[2018-11-11] MEDS: NICOTINE 21 MG/EA PATCH TOP SCH (09:00)
[2018-11-11] MEDS: GABAPENTIN 300 MG CAP PO SCH (09:43)
[2018-11-11] MEDS: LACTOBACILLUS ACIDOPHILUS CAPSULE PO SCH (09:43)
[2018-11-11] MEDS: TIZANIDINE HCL 4 MG TAB PO SCH (09:43)
[2018-11-11 11:28] VITALS: BP 116/83
[2018-11-11 12:03] VITALS: BP 116/83
[2018-11-11] MEDS ORDERED: PREDNISONE10 MG PO (15:08)
[2018-11-11 15:58] VITALS: BP 146/87
--- NOTE | 2018-11-12 08:05 | Discharge Summary ---
PCP: Dr. Diego Anand at [facility]. FINAL DIAGNOSES: 1. Pneumonia, failure outpatient antibiotics. 2. Sepsis, present on admission due to pneumonia. 3. Chronic obstructive pulmonary disease with acute exacerbation. 4. Moderate malnutrition due to poor p.o. intake. 5. Chronic back pain. CONSULTANTS: Dr. Jessica Lawson with Pulmonary. PROCEDURES: None. HISTORY: Per HPI. HOSPITAL COURSE: This is a 67-year-old female with past medical history of COPD and high blood pressure, presented to the ER with complaints of shortness of breath and fever with failed outpatient pneumonia treatment with Augmentin. Sepsis is present upon admission due to pneumonia, cultures were sent and she was started on IV cefepime and azithromycin. Pulmonary was consulted, she was started on Solu-Medrol 20 mg q.8 hours. Imaging showed some improvement. She was also noted to have hypoxia with exertion. Physical Therapy was consulted to evaluate and treat. Today, she is feeling much better, she is saturating 95% and above on 3 L O2. She has home oxygen at home and also nebulizers. We will increase prednisone 5 mg to 10 mg and weaning her down to 5 mg of her usual dose. She is afebrile, shortness of breath is improved. PHYSICAL EXAMINATION: GENERAL: No acute distress. HEENT: Normocephalic, atraumatic. LUNGS: Wheezing at her baseline. CARDIOVASCULAR: Regular rate and rhythm. ABDOMEN: Soft and nontender. NEUROLOGIC: Alert, awake, and oriented x3. MUSCULOSKELETAL: Active ROM. Bilateral lower extremity edema. SKIN: Dry and intact. VITAL SIGNS: Temperature 97.8, pulse is 106, respirations 18, blood pressure 116/83, 100% on 2 L of O2. CONDITION AT DISCHARGE: Stable and improved. DISCHARGE MEDICATIONS: Please see med rec. FOLLOWUP: Follow up with PCP in 1 to 2 weeks and Pulmonary at [facility] in 1 to 2 weeks. Total time of discharge is 33 minutes. Dictated by RIANNA Cruz Leonaching Lester Tineo MD MY/MODL /[id number] cc: Diego Anand MD [facility]
== END 2018-11-11 16:35 | disposition home or self-care (01) | DRG 871 ==
LOC: ER 17:51 → ERHOLD 22:58 → MED/SURG3 11-06 01:25
PROVIDERS: ADMIT Internal Medicine; ATTEND Internal Medicine
DX: A41.9 Sepsis, unspecified organism (principal); J18.9 Pneumonia, unspecified organism; J96.21 Acute and chronic respiratory failure with hypoxia; J44.1 Chronic obstructive pulmonary disease with (acute) exacerbation; J44.0 Chronic obstructive pulmonary disease with (acute) lower respiratory infection; E44.0 Moderate protein-calorie malnutrition; Z68.1 Body mass index [BMI] 19.9 or less, adult; G89.29 Other chronic pain; M54.9 Dorsalgia, unspecified; F17.200 Nicotine dependence, unspecified, uncomplicated
CPT/HCPCS: 36415; 71045; 71250; 80048; 80053; 81001; 82550; 82553; 83690; 83880; 84484; 85025; 87040; 87400; 94640; 94664; 96374; 99284; J0456; J0692; J0696; J1644; J2405; J2920; J2930; J3370; J3475; J7030; J7050; J7512

== ENCOUNTER 2019-10-12 14:44 | Observation (INO) | payer MEDICARE ==
[~2019-10-12] VITALS: Ht 157.5 cm; Wt 49.9 kg
[~2019-10-12 14:44] MED LIST changes: +DALIRESP500 MCG PO; +GABAPENTIN300 MG PO; +NORCO 10-325 T1 EACH PO; +OMEPRAZOLE40 MG PO; +PEPCID20 MG PO; +PREDNISONE10 MG PO; +TIZANIDINE HCL4 MG PO
--- NOTE | 2019-10-12 15:28 | Emergency Department Note ---
History of Present Illnes History of Present Illness Chief Complaint: Abdominal Complaints History of Present Illness This is a 68 year old female Chief Complaint Comment X 1 WEEK DIARRHEA. UNSURE OF AMOUNT. NAUSEA, DRY HEAVES STARTED YESTERDAY. UNABLE TO KEEP ANYTHING DOWN. C/O OF WEAKNESS. USED MAALOX AND IMMODIUM AND IT DID NOT WORK PATIENT WEARS HOME 02. Historian: Patient Arrival Mode: Car Additional Treatment MILL TENDER: NONE Script Coordinator Required: No Onset (how long ago): week(s) (1) Location: abdomen Quality: Achey Radiation: Reports non-radiation Severity: moderate Onset quality: gradual Duration (how long): week(s) Timing of current episode: constant Progression: unchanged Chronicity: new Context: Denies recent surgery Relieving factors: none Exacerbating factors: none Associated symptoms: Reports nausea/vomiting Treatments prior to arrival: none Past Medical/Family History Physician Review I have reviewed the patient's past medical and family history. Any updates have been documented here. Past Medical History Recent Fever: No Clinical Suspicion of Infectio: No New/Unexplained Change in Ment: No Past Medical History: COPD Other Medical History: COLON POLYP REMOVAL Past Surgical History: Appendectomy, T&A Other Surgery: Right arm fracture surgery polyp revmoved from colon Other Last Tetanus: utd Review of Systems Review of Systems Constitutional: Reports as per HPI EENTM: Reports no symptoms Cardiovascular: Reports no symptoms Respiratory: Reports no symptoms Gastrointestinal: Reports abdominal pain, Reports diarrhea, Reports nausea, Reports vomiting Genitourinary: Reports no symptoms Musculoskeletal: Reports no symptoms Integumentary: Reports no symptoms Neurological: Reports no symptoms Psychological: Reports no symptoms Endocrine: Reports no symptoms Hematological/Lymphatic: Reports no symptoms Physical Exam Related Data Allergies: Coded Allergies: No Known Allergies (Unverified , 11/06/18) Triage Vital Signs Vital Signs Date Time Temp Pulse Resp B/P (MAP) Pulse Ox O2 Delivery O2 Flow Rate FiO2 10/12/19 15:11 98.7 113 18 157/95 99 Room Air Vital signs reviewed: Yes Physical Exam CONSTITUTIONAL Constitutional: Present well-developed, Present well-nourished HENT HENT: Present normocephalic, Present atraumatic, Present oropharynx clear/moist, Present nose normal HENT L/R: Present left ext ear normal, Present right ext ear normal EYES Eyes: Reports PERRL, Reports conjunctivae normal NECK Neck: Present ROM normal PULMONARY Pulmonary: Present effort normal, Present breath sounds normal CARDIOVASCULAR Cardiovascular: Present regular rhythm, Present heart sounds normal, Present capillary refill normal, Present normal rate GASTROINTESTINAL Abdominal: Present soft, Present nontender, Present bowel sounds normal, Present tender (Non focal discomfort) GENITOURINARY Genitourinary: Present exam deferred SKIN Skin: Present warm, Present dry MUSCULOSKELETAL Musculoskeletal: Present ROM normal NEUROLOGICAL Neurological: Present alert, Present oriented x 3, Present no gross motor or sensory deficits PSYCHOLOGICAL Psychological: Present mood/affect normal, Present judgement normal Procedures 12 Lead ECG Interpretation ECG Interpretation : ECG: ECG 1 Date: Oct 12, 2019 Rhythm: sinus tachycardia Rate: tachycardia BPM: 129 QRS axis: normal ST segments normal: Yes T waves normal: Yes Clinical Impression: non-specific ECG Assessment & Plan Medical Decision Making MDM 68 y/o presents for diarrhea. Tachy initially. Labs/imaging well appearing. Will try 2L bolus and zofran and re-eval. handed patient over to Dr. Scott at 1800 Assessment & Plan Final Impression: (1) Diarrhea Last Vital Signs Date Time Temp Pulse Resp B/P (MAP) Pulse Ox O2 Delivery O2 Flow Rate FiO2 10/12/19 15:11 98.7 113 18 157/95 99 Room Air Home Meds Active Scripts Prednisone (PREDNISONE) 10 Mg Tab, 10 MG PO DAILY for 10 Days, #18 TAB Take 3 tabs dailyx3 days then take 2 tabs daily x3 days take 1 tab daily x3 Prov:SHAHBAZ GARCIA NP 11/11/18 Theophylline Anhydrous (THEOPHYLLINE ANHYDROUS) 200 Mg Tab.er.12h, 300 MG PO DAILY for 30 Days Prov:JAME RENTERIA 05/02/14 Montelukast Sodium (SINGULAIR) 10 Mg Tablet, 10 MG PO HS for 30 Days Prov:JAME RENTERIA 05/02/14 Metoprolol Tartrate (LOPRESSOR) 25 Mg Tab, 12.5 MG PO Q12HR for 30 Days Prov:JAME RENTERIA 05/02/14 Benzonatate (TESSALON PERLE) 100 Mg Capsule, 100 MG PO Q8HR PRN for COUGH, #60 Prov:JAME RENTERIA 05/02/14 Loratadine/Pseudoephedrine (CLARITIN-D 24 HOUR TABLET) 1 Each Tab.er.24h, 1 EACH PO DAILY, #30 TAB Prov:JAME RENTERIA 05/02/14 Reported Medications Famotidine (PEPCID) 20 Mg Tablet, 20 MG PO HS, #60 TAB 11/06/18 Hydrocodone Bit/Acetaminophen (NORCO 10-325 TABLET) 1 Each Tablet, 1 TAB PO every 6 hours PRN for pain 11/06/18 Tizanidine Hcl (TIZANIDINE HCL) 4 Mg Tablet, 4 MG PO TID, TAB 11/06/18 Omeprazole (OMEPRAZOLE) 40 Mg Capsule.dr, 40 MG PO DAILY 11/06/18 Gabapentin (GABAPENTIN) 300 Mg Capsule, 300 MG PO TID, #60 CAP 11/06/18 Roflumilast (DALIRESP) 500 Mcg Tablet, 500 MCG PO DAILY 11/06/18 Albuterol Sulfate (VENTOLIN HFA) 18 Gm Hfa.aer.ad, 1 INH INH PRN 02/03/13 Albuterol Sulfate (ALBUTEROL SULFATE) 1.25 Mg/3 Ml Vial.neb, 1 INH NEB PRN 02/03/13 Fluticasone/Salmeterol (ADVAIR 250-50 DISKUS) 1 Each Disk.w.dev, 1 INH IH BID 02/03/13 Tiotropium [place] (SPIRIVA) 18 Mcg Cap.w.dev 01/30/13 Sertraline Hcl (ZOLOFT) 100 Mg Tablet, 100 MG PO DAILY 01/30/13 Medications in the ED Ondansetron HCl 4 mg Q4H PRN IV NAUSEA AND VOMITING; Start 10/12/19 at 15:30; Stop 11/11/19 at 15:29; Status UNV Sodium Chloride 1,000 ml @ 100 mls/hr Q10H IV ; Start 10/12/19 at 15:30; Stop 11/11/19 at 15:29; Status UNV JSOH VANEGAS MD Oct 12, 2019 15:28
[2019-10-12] MEDS ORDERED: ONDANSETRON HCL INJ 2MG/ML 2ML 2 MG/ML VIAL IV PRN ×2 (15:30→18:30)
[2019-10-12] MEDS ORDERED: SODIUM CHLORIDE 0.9% 1000ML 1,000 ML IV SCH (15:30)
[2019-10-12 15:35] LABS: BASOPHILS % 0.3 % (0.0-1.0); EOSINOPHILS # (AUTO) 0.1 (0.0-0.4); EOSINOPHILS % 0.6 % (0.0-6.0); HEMATOCRIT 43.7 % (34.2-44.1); HEMOGLOBIN 14.1 g/dL (12.0-16.0); LYMPHOCYTES # (AUTO) 0.5 (1.0-3.2); LYMPHOCYTES % 4.5 % (18.0-39.1); MEAN CORPUSCULAR HEMOGLOBIN 27.5 pg (28-32); MEAN CORPUSCULAR HGB CONC 32.3 g/dL (31-35); MEAN CORPUSCULAR VOLUME 85.2 fL (81-99); MONOCYTES # (AUTO) 0.9 (0.2-0.8); MONOCYTES % 7.2 % (4.4-11.3); NEUTROPHILS # (AUTO) 10.3 (2.1-6.9); NEUTROPHILS % 86.1 % (38.7-80.0); PLATELET COUNT 181 x10e3/uL (140-360); RED BLOOD COUNT 5.13 x10e6/uL (3.6-5.1); RED CELL DISTRIBUTION WIDTH 13.5 % (11.7-14.4)
--- OUTSIDE RECORDS SUMMARY | 2019-10-12 15:43 | XMS REPORT | Clinical Summary ---
Author Author [facility] Organization [facility] Address Unknown Phone Unavailable Care Team Providers Care Equipment Maintenance Supervisor Name Role Phone PCP Unavailable Allergies Comments Active Allergy Reactions Severity Noted Date No Known Allergies 07/15/2012 No Known Drug Allergies 04/12/2013 Medications End Date Status Medication Sig Dispensed Refills Start Date Active albuterol (VENTOLIN Inhale 2 20.1 g 3 HFA,PROVENTIL HFA,PROAIR Puffs by 4 HFA) 90 mcg/actuation mouth 4 times inhalerIndications: COPD daily as (chronic obstructive needed for pulmonary disease), SOB Wheezing. (shortness of breath), Wheezing Active albuterol (PROVENTIL) 2.5 Inhale 3 mL 300 mL 5 mg /3 mL (0.083 %) by mouth 4 nebulizer every 4 hours solutionIndications: COPD as needed for exacerbation Wheezing or Shortness of Breath. Active ipratropium (ATROVENT) Inhale 2.5 mL 250 mL 5 0 0.02 % nebulizer by mouth 4 4 solutionIndications: SOB times daily. (shortness of breath), Wheezing Active varenicline (CHANTIX) 1 Take 1 tablet 60 tablet 4 mg tabletIndications: by mouth 2 4 Tobacco abuse, COPD times daily. (chronic obstructive pulmonary disease) Active fluticasone-salmeterol Inhale 1 Puff 180 Each 4 0 (ADVAIR DISKUS) 500-50 by mouth 2 4 mcg/dose diskus times daily inhalerIndications: COPD (chronic obstructive pulmonary disease), COPD exacerbation Active tiotropium (SPIRIVA WITH Inhale 1 90 capsule 5 0 HANDIHALER) 18 mcg capsule by 4 inhalation mouth daily capsuleIndications: COPD (chronic obstructive pulmonary disease), COPD exacerbation Active codeine-guaiFENesin Take 5 mL by 240 mL 1 09/29 (CHERATUSSIN AC) 10-100 mouth 4 times 4 mg/5 mL syrupIndications: daily as COPD exacerbation needed for Cough. Active predniSONE (DELTASONE) 20 Take 2 11 tablet 0 mg tabletIndications: tablets by 4 COPD exacerbation, SOB mouth for 3 (shortness of breath), days, then 1 Wheezing tablet for 3 days, then 1/2 tablet for 4 days. Active estrogens, conjugated, Take 1 tablet 90 tablet 1 1 (PREMARIN) 0.625 mg by mouth 4 tabletIndications: daily. Menopausal syndrome (hot flashes) Active alendronate (FOSAMAX) 70 Take 1 tablet 12 tablet 1 mg tabletIndications: once a week 4 Osteoporosis, unspecified on empty stomach with 8 oz of water and remain upright for 30 minutes. Active Problems Problem Noted Date Dental decay 02/23/2013 Decay, teeth 12/29/2012 COPD (chronic obstructive pulmonary disease) 013 Immunizations Name Administration Dates Next Due Influenza Vaccine 11/24/2013 Family History Medical History Relation Name Comments Cancer Father Cancer Mother Cancer Sister Relation Name Status Comments Father Mother Sister Social History Date Tobacco Use Types Packs/Day Years Used Quit: 02/15/2012 Former Smoker Cigarettes Smokeless Tobacco: Never Used Tobacco Cessation: Counseling Given: Yes Comments: passive smoke exposure Drinks/Week oz/Week Comments Alcohol Use No Sex Assigned at Date Recorded Not on file Industry Job Start Date Occupation Not on file Not on file Not on file Travel End Travel History Travel Start No recent travel history available. Last Filed Vital Signs Not on file Plan of Treatment Health Maintenance Due Date Last Done Comments Colorectal Cancer Scrn 2000 Annual (FIT/FOBT) Age 50 to 75 Breast Cancer Scrn 01/10/2015 01/10/2014, (Yearly) 07/10/2009 IMM Pneumococcal Age 65 12/14/2015 and Up IMM Influenza Seasonal 11/10/2019 11/24/2013 Oct to April (>/= 19 yrs) Results Not on fileafter 10/11/2018
--- OUTSIDE RECORDS SUMMARY | 2019-10-12 15:43 | XMS REPORT | Clinical Summary ---
Author Author [facility] Address Unknown Phone Unavailable Care Team Providers Care Duplication Specialist Name Role Phone Sharpless PCP Allergies Comments [...] spasms. Active HYDROcodone-acetaminophen Take 1 tablet 0 11/10 (NORCO 10-325) 10-325 mg by mouth 8 per tablet every 4 (four) hours as needed for Pain. Max Daily Amount: 6 tablets 12/07/2018 atorvastatin (LIPITOR) 40 Take 1 tablet 90 tablet 3 MG tablet (40 mg total) 8 by mouth nightly. 12/08/2018 magnesium oxide (MAG-OX) Take 1 tablet 90 tablet 3 400 mg tablet (400 mg 8 total) by mouth daily. 12/07/2018 albuterol HFA (VENTOLIN Inhale 2 0 HFA) 90 mcg/actuation puffs by 8 inhaler mouth via inhaler every 6 (six) hours as needed for Wheezing or Shortness of Breath. 12/07/2018 ipratropium (ATROVENT) Take 2.5 mLs 0 01 0.02 % nebulizer solution (0.5 mg 8 total) by nebulization every 6 (six) hours as needed for Wheezing. 12/07/2018 mometasone-formoterol Inhale 2 0 12/08/19 1 (DULERA) 100-5 puffs by 8 mcg/actuation inhaler mouth via inhaler 2 (two) times daily. 12/07/2018 tiotropium (SPIRIVA) 18 Inhale 1 0 mcg inhalation capsule capsule (18 8 mcg total) by mouth via inhaler daily. 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 18 Colon polyp 12/03/2017 Colonic polyp 12/03/2017 COPD (chronic obstructive pulmonary disease) 018 Overview: stable with meds.O2 1.5 L/min per n/c a t HS only Chronic back pain 12/03/2017 Former smoker 12/03/2017 GERD (gastroesophageal reflux disease) 12/03/2017 Major depressive disorder 12/03/2017 Colitis 03/08/2016 Colovaginal fistula 02/18/2016 Social History Date Tobacco Use Types Packs/Day Years Used Former Smoker 0.5 35 Smokeless Tobacco: Never Used Comments: quit smoking 2007 Alcohol Use Drinks/Week oz/Week Comments No Sex Assigned at Date Recorded Not on file Industry Job Start Date Occupation Not on file Not on file Not on file Travel End Travel History Travel Start No recent travel history available. Last Filed Vital Signs Not on file Plan of Treatment Health Maintenance Due Date Last Done Comments BREAST CANCER SCREENING 1950 MEDICARE ANNUAL WELLNESS 03/13/2015 (YEAR 2 or FIRST YEAR if no IPPE) INFLUENZA VACCINE (#1) 2019 02/18/2017, 11/2014, 12/03/2010, Additional history exists COLON CANCER SCREENING 11/21/2027 11/20/2017 COLONOSCOPY PNEUMOCOCCAL 65+ Completed 04/09/2017, 017, 01/11/2003 LOW/MEDIUM RISK Implants Device Identifier Shelf Expiration Date Model / Serial / L ot Implanted Type Area Manufactur er 05/09/2018 4301-02 / / [id number] Memb [employer] Adhen Preston 5x6 Cement/Gonzalez N/A: Abdomen GENZYME 4301-02 - [id number] ler/Adhesi MARTINEZ: Implanted: Qty: 2 on 02/18/2016 by ve BIO -SURG Irving Simon MD Results Not on fileafter 10/11/2018 Insurance Payer Benefit Subscriber ID Type Phone Address Plan / Group [employer] [place] xxxxxxxxxxx MEDICARE ADV [phone] Advance Directives For more information, please contact: [facility] [address] [place] [address] Date Inactivated Comments Code Status Date Activated 12/08/2017 12:05 PM Full Code 12/03/2017 3:14 PM This code status was determined by: Patient 02/26/2016 4:53 PM Full Code 02/18/2016 6:46 AM This code status was determined by: Patient
--- OUTSIDE RECORDS SUMMARY | 2019-10-12 15:44 | XMS REPORT | Continuity of Care Document ---
Author Author [facility] t Organization [facility] Address [address] [place] [address] Phone Unavailable Care Team Providers Care Counter Helper Name Role Phone NONSTAFF PCP Unavailable Christine KAUFFMAN Attphys Unavailable OTHMAN, OTHMAN BARRY GANDARA Attphys Unavailable Christine KAUFFMAN YIJACK Admphys Unavailable OTHMAN, OTHMAN BARRY MOHAMED Admphys Unavailable Payers Payer Name Policy Type Policy Number Effective Date Expiration Date Bob loya Kelsey Care Medicare Advantage [id number] [facility] Problems Condition Name Condition Details Condition Category Status Onset Date Resolution Date Last Treatment Date Treating Clinician Comments Source Pneumoperitoneum Pneumoperitoneum Disease Active 2017-12-05 00:00:00 [facility] 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 2017-12-04 00:00:00 [facility] Colonic polyp Colonic polyp Disease Active 2017-12-03 00:00:00 [facility] COPD (chronic obstructive pulmonary disease) COPD (chr onic obstructive pulmonary disease) Disease Active 2017-12-03 00:00:00 Overview: stable with meds.O2 1.5 L/min per n/c at HS only [facility] Chronic back pain Chronic back pain Disease Active 2017-12-03 00:00:00 [facility] Former smoker Former smoker Disease Active 2017-12-03 00:00:00 [facility] GERD (gastroesophageal reflux disease) GERD (gastroesophagea l reflux disease) Disease Active 2017-12-03 00:00:00 [facility] Major depressive disorder Major depressive disorder Disease Ac tive 2017-12-03 00:00:00 [facility] Colitis Colitis Disease Active 2016-03-08 00:00:00 [facility] Colovaginal fistula Colovaginal fistula Disease Active 2016-02-18 00:00 :00 [facility] Bronchitis Bronchitis Problem Active 2014-04-26 00:00:00 [facility] Chronic obstructive bronchitis COPD bronchitis Problem Active 2014-04-26 00:00:00 [facility] Dental decay Dental decay Disease Active 2013-02-23 00:00:[address] [facility] Decay, teeth Decay, teeth Disease Active 2012-12-29 00:00:[address] [facility] COPD (chronic obstructive pulmonary disease) COPD (chr onic obstructive pulmonary disease) Disease Active 2012-07-15 00:00:00 [facility] Pneumonia PNA (pneumonia) Problem Active [facility] Allergies, Adverse Reactions, Alerts Allergy Name Allergy Type Status Severity Reaction(s) Onset Date Inacti ve Date Treating Clinician Comments Source Azithromycin Propensity to adverse reactions Active 201 08-09-02 00:00:00 [facility] Codeine Drug Allergy Active Nausea And Vomiting 2016-02-12 00:00:0 0 [facility] Budesonide-Formoterol Drug Intolerance Active 3 00:00:00 Metal taste in her mouth [facility] Bupropion Hcl Propensity to adverse reactions Active 25-02-02 00:00:00 [facility] r No Known Allergies DA Active U 2011-09-26 00:00:00 [facility] Family History Family Member Diagnosis Comments Start Date Stop Date Source Natural father Cancer Anam Renee [facility] Natural mother Cancer Anam Renee [facility] Natural sister Cancer Anam christine [facility] Social History Social Habit Start Date Stop Date Quantity Comments Source Sex Assigned At [facility] Cigarettes smoked current (pack per day) - Reported 00:00:00 2017-12-04 00:00:00 [facility] Cigarette pack-years 2017-12-04 00:00:00 2017-12-04 00:00:00 [facility] Alcohol intake 2015-01-04 00:00:00 2015-01-04 00:00:00 Current non-drinker of alcohol (finding) [facility] Tobacco Comment 2013-04-12 00:00:00 2013-04-12 00:00:00 passive smo ke exposure [facility] History of tobacco use 2012-02-15 00:00:[address] [facility] Smoking Status Start Date Stop Date Source Former smoker 2015-01-04 00:00:00 2015-01-04 00:00:00 [facility] Medications Ordered Medication Name Filled Medication Name Start Date Stop Da te Current Medication? Ordering Clinician Indication Dosage Frequency Signature (SIG) Comments Components Source Prednisone 10 Mg Tab Prednisone 10 Mg Tab 2018-11-11 00:00:00 Yes Manisha Garrett Hand Bulldozer 10 Daily [facility] magnesium oxide (MAG-OX) 400 mg tablet 2017-11-11 0 00:00:00 2018-12-08 23:59:00 No 400mg QD Take 1 tablet (400 mg total) by mouth daily. [facility] TiZANidine (ZANAFLEX) 4 MG capsule 2017-12-07 00:00:00 Yes 4mg Take 1 capsule (4 mg total) by mouth 3 (three) times daily as needed for Muscle spasms. [facility] HYDROcodone-acetaminophen (NORCO 10-325) 10-325 mg per table t 2017-12-07 00:00:00 Yes 1{tbl} Take 1 tab let by mouth every 4 (four) hours as needed for Pain. Max Daily Amount: 6 tablets [facility] atorvastatin (LIPITOR) 40 MG tablet 2017-12-07 00:00:0 0 2018-12-07 23:59:00 No 40mg QD Take 1 tablet (40 mg total) by mouth nig htly. [facility] albuterol HFA (VENTOLIN HFA) 90 mcg/actuation inhaler 2017-12-07 00:00:00 2018-12-07 23:59:00 No 2{puff} Inhal e 2 puffs by mouth via inhaler every 6 (six) hours as needed for Wheezing or Shortness of Breath. [facility] ipratropium (ATROVENT) 0.02 % nebulizer solution 2017-12-07 00:00:00 2018-12-07 23:59:00 No .5mg Take 2.5 mLs (0.5 mg total) by nebulization every 6 (six) hours as needed for Wheezing. [facility] mometasone-formoterol (DULERA) 100-5 mcg/actuation inhaler 2017-12-07 00:00:00 2018-12-07 23:59:00 No 2{puff} Q.5D Inhale 2 puffs by mouth via inhaler 2 (two) times daily. [facility] tiotropium (SPIRIVA) 18 mcg inhalation capsule 2 00:00:00 2018-12-07 23:59:00 No 18ug QD Inhale 1 capsu le (18 mcg total) by mouth via inhaler daily. [facility] omeprazole (PRILOSEC) 40 MG capsule 2017-12-01 08:39:22 Yes 40mg QD Take 40 mg by mouth daily. [facility] roflumilast (DALIRESP) 500 mcg Tab tablet 2017-12-01 08:38:46 Yes QD Take by mouth daily. [facility] gabapentin (NEURONTIN) 300 MG capsule 2017-12-01 08:38:46 Yes 300mg Q.[id number] Take 300 mg by mouth 3 (three) times daily. [facility] famotidine (PEPCID) 40 MG tablet 2017-12-01 08:38:46 Yes 40mg QD Take 40 mg by mouth nightly. [facility] predniSONE (DELTASONE) 10 MG tablet 2017-12-01 08:34:48 Yes 5mg QD Take 5 mg by mouth daily . [facility] montelukast (SINGULAIR) 10 mg tablet 2016-02-18 07:10:24 Ye s 10mg QD Take 10 mg by mouth nightly. [facility] sertraline (ZOLOFT) 100 MG tablet 2016-02-12 12:37:20 Yes 100mg QD Take 100 mg by mouth daily. [facility] Benzonatate (Tessalon Perle) 100 Mg Capsule Benzonatat e (Tessalon Perle) 100 Mg Capsule 2014-05-02 00:00:00 Yes Jinny Brady 100 Every 8 Hours as needed for Cough [facility] Loratadine/Pseudoephedrine (Claritin-D 24 Hour Tablet) 1 Each Tab.er.24h Loratadine/Pseudoephedrine (Claritin-D 24 Hour Tablet) 1 Each Tab.er.24h 2014-05-02 00:00:00 Yes Jinny Brady 1 Daily [facility] Metoprolol Tartrate (Lopressor) 25 Mg Tab Metoprolol T artrate (Lopressor) 25 Mg Tab 2014-05-02 00:00:00 Yes Jinny Brady 12.5 Every 12 Hours [facility] Montelukast Sodium (Singulair) 10 Mg Tablet Montelukas t Sodium (Singulair) 10 Mg Tablet 2014-05-02 00:00:00 Yes Jinny Brady 10 Bedti [facility] Theophylline Anhydrous 200 Mg Tab.er.12h Theophylline Anhydrous 200 Mg Tab.er.12h 2014-05-02 00:00:00 Yes Jinny Brady 300 D aily [facility] Prednisone 20 Mg Tab, 20 Mg Oral Prednisone 20 Mg Tab, 20 Mg Oral 2014-05-02 00:00:00 2018-11-11 00:00:00 No Jinny Brady 20 Daily [facility] alendronate (FOSAMAX) 70 mg tablet 2014-01-03 00:00:00 Yes Osteoporosis, unspecified Take 1 tablet once a week on empty stomach with 8 oz of water and remain upright for 30 minutes. [facility] estrogens, conjugated, (PREMARIN) 0.625 mg tablet 2013-11-29 00:00:00 Yes Menopausal syndrome (hot flashes) .625mg QD Take 1 tablet by mouth lukas singleton. [facility] fluticasone-salmeterol (ADVAIR DISKUS) 500-50 mcg/dose disku s inhaler 2013-09-29 00:00:00 Yes COPD exacerbation 1{puff} Q. 5D Inhale 1 Puff by mouth [address] [facility] tiotropium (SPIRIVA WITH HANDIHALER) 18 mcg inhalation capsu le 2013-09-29 00:00:00 Yes COPD exacerbation 1{capsule} QD I nhale 1 capsule by mouth daily [facility] codeine-guaiFENesin (CHERATUSSIN AC) 10-100 mg/5 mL syrup 2013-09-29 00:00:00 Yes COPD exacerbation 5mL Take 5 mL by mouth 4 times daily as needed for Cough. [facility] predniSONE (DELTASONE) 20 mg tablet 2013-09-29 00:00:00 Yes Wheezing Take 2 tablets by mouth for 3 days, then 1 tablet for 3 days, then 1/2 tablet for [address] [facility] varenicline (CHANTIX) 1 mg tablet 2013-06-30 00:00:00 Yes COPD (chronic obstructive pulmonary disease) 1mg Q.5D Take 1 tablet by mouth [address] [facility] albuterol (VENTOLIN HFA,PROVENTIL HFA,PROAIR HFA) 90 mcg/act uation inhaler 2013-05-19 00:00:00 Yes Wheezing 2{puff} Inhale 2 Puffs by mouth 4 times daily as needed for Wheezing. [facility] albuterol (PROVENTIL) 2.5 mg /3 mL (0.083 %) nebulizer solut ion 2013-05-19 00:00:00 Yes COPD exacerbation 2.5mg In dawson 3 mL by mouth every 4 hours as needed for Wheezing or Shortness of Breath. [facility] ipratropium (ATROVENT) 0.02 % nebulizer solution 2013-05-19 00:00:00 Yes Wheezing .5mg Inhale 2.5 mL by mouth [address] [facility] Albuterol Sulfate 1.25 Mg/3 Ml Vial.neb Albuterol Sulfate 1. 25 Mg/3 Ml Vial.neb Yes 1 As Needed [facility] Albuterol Sulfate (Ventolin Hfa) 18 Gm Hfa.aer.ad Albu terol Sulfate (Ventolin Hfa) 18 Gm Hfa.aer.ad Yes 1 As Needed [facility] Famotidine (Pepcid) 20 Mg Tablet Famotidine (Pepcid) 20 Mg Tablet Yes 20 Bedtime [facility] Fluticasone/Salmeterol (Advair 250-50 Diskus) 1 Each D isk.w.dev Fluticasone/Salmeterol (Advair 250-50 Diskus) 1 Each Disk.w.dev Yes 1 Twice A Day [facility] Gabapentin 300 Mg Capsule Gabapentin 300 Mg Capsule Yes 300 Three Times A Day [facility] Hydrocodone Bit/Acetaminophen ([place] 10-325 Tablet) 1 Each Tablet Hydrocodone Bit/Acetaminophen ([place] 10-325 Tablet) 1 Each Tablet Yes 1 Every 6 Hours as needed for Pain [facility] Omeprazole 40 Mg Capsule. Omeprazole 40 Mg Capsule. Yes 40 Daily [facility] Roflumilast (Daliresp) 500 Mcg Tablet Roflumilast (Daliresp) 500 Mc g Tablet Yes 500 Daily [facility] Sertraline Hcl (Zoloft) 100 Mg Tablet Sertraline Hcl (Zoloft) 100 M g Tablet Yes 100 Daily [facility] Tiotropium Lindsay (Spiriva) 18 Mcg Cap.w.dev Tiotropi um Lindsay (Spiriva) 18 Mcg Cap.w.dev Yes [facility] Tizanidine Hcl 4 Mg Tablet Tizanidine Hcl 4 Mg Tablet Yes 4 Three Times A Day [facility] Methylprednisolone 4 Mg Tab.ds.pk, 1 Methylprednisolone 4 Mg Tab .ds.pk, 1 2014-05-02 00:00:00 No 1 [facility] Benzonatate (Tessalon Perle) 100 Mg Capsule, 100 Mg Or al Benzonatate (Tessalon Perle) 100 Mg Capsule, 100 Mg Oral 2014-04-26 00:00:00 No 100 As Needed [facility] Unable To Obtain , Unable To Obtain , 2013-01-30 00:00:00 No [facility] Immunizations Ordered Immunization Name Filled Immunization Name Date Status Comments Source Influenza Vaccine 2013-11-24 00:00:[address] [facility] Procedures Procedure Date / Time Performed Performing Clinician [facility] e Computed tomography of chest without contrast 2018-11-09 00: 00:00 GASTON DIAL [facility] Plan of Care Planned Activity Planned Date Details Comments Source Future Scheduled Test 2027-11-21 00:00:00 Screening for gilma gnant neoplasm of colon (procedure) [code = 903550936] [facility] Future Scheduled Test 2019-11-10 00:00:00 IMM Influenza Seas onal Nov to April (>/= 19 yrs) [code = IMM Influenza Seasonal Nov to April (>/= 19 yrs)] [facility] Scheduled Test 2019-10-11 00:00:00 INFLUENZA VACCINE (#1) [code = INFLUENZA VACCINE (#1)] [facility] Scheduled Test 2015-12-14 00:00:00 IMM Pneumococcal A ge 65 and Up [code = IMM Pneumococcal Age 65 and Up] [facility] Scheduled Test 2015-03-13 00:00:00 MEDICARE ANNUAL WE LLNESS (YEAR 2 or FIRST YEAR if no IPPE) [code = MEDICARE ANNUAL WELLNESS (YEAR 2 or FIRST YEAR if no IPPE)] [facility] Scheduled Test 2015-01-10 00:00:00 Breast Cancer Scrn (Yearly) [code = Breast Cancer Scrn (Yearly)] [facility] Scheduled Test 2000 00:00:00 Screening for gilma gnant neoplasm of colon (procedure) [code = 207898330] [facility] Scheduled Test 1950 00:00:00 Screening for gilma gnant neoplasm of breast (procedure) [code = 275008234] [facility] Encounters Start Date/Time End Date/Time Encounter Type Admission Type [facility] Care Department Encounter ID Source 2018-11-05 22:58:00 2018-11-11 16:35:00 Discharged Inpatient 1 JOSEPHINE KAUFFMAN [facility] [id number] [facility] Results Test Description Test Time Test Comments Results Result Comments Source Blood Culture 2018-11-11 06:39:00 Test Item Blood Culture (test code = 08469882) NO GROWTH AFTER 5 DAYS, FINAL REPORT [facility] [id number] 15:28:00 [facility] [address] [address] Patient Name: JOSEP CRUZ MR #: [id number] : 1950 Age/Sex: 67/F Req #: [id number] Adm Physician: JOSEPHINE KAUFFMAN MD Ordered by: GASTON DIAL MD Report #: [id number] Location: MED/SURG3 Room/Bed: [facility] Procedure: [id number] C T/CT CHEST WO Exam Date: 11/09/18 Exam Time: 1230 REPORT STATUS: Signed EXAM: CT [facility] [facility] WITHOUT intravenous contrast 11/09/2018 11:49 AM INDICATION: Shortness of b reath COMPARISON: Chest radiograph of 11/05/2018 TECHNIQUE: Chest was scann ed utilizing a multidetector helical scanner from the lung apex through the le douglas of the adrenal glands without administration of IV contrast. Coronal and s agittal reformations were obtained. Routine protocol was performed. IV CO NTRAST: None RADIATION DOSE: Total DLP: 265.3 mGy*cm. Dose modulation, iterati ve reconstruction, and/or weight based adjustment of the mA/kV was utilized to reduce the radiation dose to as low as reasonably achievable. COMPLICATION S: None FINDINGS: LINES/ TUBES: None. LUNGS AND AIRWAYS: The chris tral airways are patent. The lungs are hyperinflated. There is severe bilatera l upper lobe predominant centrilobular and paraseptal emphysema. Mild biapical pleural parenchymal thickening/scarring. No focal consolidation or pulmonary edema. No suspicious pulmonary nodules. PLEURA: No pleural effusion or p neumothorax. HEART AND MEDIASTINUM: The thyroid gland is normal. No suprac lavicular, mediastinal, hilar, or axillary lymphadenopathy. The heart is not enlarged. No pericardial effusion. Atherosclerotic calcifications involve the coronary arteries, aorta, and great vessels. UPPER ABDOMEN: Limited nonco ntrast images of the upper abdomen. Subcentimeter hypodensity at the hepatic d ome may represent a cyst. Scattered hypodensities in the spleen are nonspecifi c and may represent sequela of prior trauma or infection. No abnormality of th e partially visualized kidneys and adrenals. No focal mass or ductal dilation of the partially visualized pancreas. BONES: Age-indeterminate compression fracture of T6 with associated exaggerated thoracic kyphosis. Mild diffuse ost eopenia. No suspicious lytic or blastic lesions. SOFT TISSUES: Unremarkab le. IMPRESSION: Hyperinflated lungs with severe bilateral upper lobe pre dominant centrilobular and paraseptal emphysema. Atherosclerotic calcific ations of the coronary arteries, aorta and great vessels. Age-indetermina te compression fracture of T6 with associated exaggerated thoracic kyphosis. Signed by: Tika Sharpe MD on 11/09/2018 3:35 PM Dictated By: TIKA SHARPE MD 153 Transcribed By: ALMA ROSA on 11/09/181534 COPY TO: GASTON DIAL MD Creatine Kinase [id number] 11:43:00* Test Item Value Reference Range Interpretation Comments Creatine Kinase MB (test code = 96662-1) 4.20 0-5.0 [facility]roponin [id number] 11:43:00* Test Item Value Reference Range Interpretation Comments Troponin I (test code = MLC7362) 0.020 0-0.300 [facility]villeCreatine [id number] 11:39:00* Test Item Value Reference Range Interpretation Comments Creatine Kinase (test code = 2157-6) 63 29-168 [facility]villeDifferential Total Cells Counted 2018-11-06 07:31:00* Test Item Value Reference Range Interpretation Comments Differential Total Cells Counted (test code = Differen tial Total Cells Counted) 100 [facility]villeNeutrophils % (Manual)2018-11-06 07:31:00 * Test Item Value Reference Range Interpretation Comments Neutrophils % (Manual) (test code = 74291-4) 94 40-74 H [facility]villeBand Neutrophils %2018-11-06 07:31:00* Test Item Value Reference Range Interpretation Comments Band Neutrophils % (test code = 764-1) 1 [facility]villeLymphocytes % (Manual)2018-11-06 07:31:00 * Test Item Value Reference Range Interpretation Comments Lymphocytes % (Manual) (test code = 737-7) 4 19-48 L [facility]villeMonocytes % (Manual)2018-11-06 07:31:00* Test Item Value Reference Range Interpretation Comments Monocytes % (Manual) (test code = 744-3) 1 3.4-9.0 L [facility]villePlatelet [id number] 07:31:00* Test Item Value Reference Range Interpretation Comments Platelet Estimate (test code = 22602-9) ADEQUATE [facility]villePlatelet Morphology [id number] 07:31:00* Test Item Value Reference Range Interpretation Comments Platelet Morphology Comment (test code = 61479-0) NORMAL [facility]villeRed Cell Morphology [id number] 07:31:00* Test Item Value Reference Range Interpretation Comments Red Cell Morphology Comment (test code = 6742-1) NORMAL [facility] [id number] 07:01:00* Test Item Value Reference Range Interpretation Comments Sodium Level (test code = 2951-2) 139 136-145 [facility]villePotassium [id number] 07:01:00* Test Item Value Reference Range Interpretation Comments Potassium Level (test code = 2823-3) 5.0 3.5-5.1 [facility]villeChloride [id number] 07:01:00* Test Item Value Reference Range Interpretation Comments Chloride Level (test code = 2075-0) 105 98-107 [facility]villeCarbon Dioxide [id number] 07:01:00* Test Item Value Reference Range Interpretation Comments Carbon Dioxide Level (test code = 2028-9) 27 22-29 [facility]villeAnion [id number] 07:01:00* Test Item Value Reference Range Interpretation Comments Anion Gap (test code = 74514-7) 12.0 8-16 [facility]villeBlood Urea [id number] 07:01:00* Test Item Value Reference Range Interpretation Comments Blood Urea Nitrogen (test code = 3094-0) 26 7-26 [facility]villeCreatinine2019-09-28 07:01:00* Test Item Value Reference Range Interpretation Comments Creatinine (test code = 2160-0) 0.73 0.57-1.11 [facility]villeBUN/Creatinine [id number] 07:01:00* Test Item Value Reference Range Interpretation Comments BUN/Creatinine Ratio (test code = 3097-3) 36 6-25 H [facility] BrownsvilleEstimat Glomerular Filtration Rate 2018-11-06 07:01:00* Test Item Value Reference Range Interpretation Comments Estimat Glomerular Filtration Rate (test code = 905286500) > 60 >60 Ranges were taken from the National Kidney Disease Education Program and the [facility] literature.Reference ranges:60 or greater: Lxkjwu93-84 ( for 3 consecutive months): Chronic kidney disease 15 or less: Kidney failureValley [facility] Medical Center – BrownsvilleGlucose [id number] 07:01:00* Test Item Value Reference Range Interpretation Comments Glucose Level (test code = LFF9573) 125 74-118 H [facility]villeCalcium [id number] 07:01:00* Test Item Value Reference Range Interpretation Comments Calcium Level (test code = 79545-5) 8.9 8.4-10.2 [facility]villeWhite Blood [id number] 06:50:00* Test Item Value Reference Range Interpretation Comments White Blood Count (test code = 6690-2) 8.86 4.8-10.8 [facility]villeRed Blood [id number] 06:50:00* Test Item Value Reference Range Interpretation Comments Red Blood Count (test code = 789-8) 4.49 3.6-5.1 [facility]villeHemoglobin2019-09-28 06:50:00* Test Item Value Reference Range Interpretation Comments Hemoglobin (test code = 12619-6) 13.1 12.0-16.0 [facility]villeHematocrit2019-09-28 06:50:00* Test Item Value Reference Range Interpretation Comments Hematocrit (test code = 4544-3) 40.4 34.2-44.1 [facility]villeMean Corpuscular [id number] 06:50:00* Test Item Value Reference Range Interpretation Comments Mean Corpuscular Volume (test code = 787-2) 90.0 81-99 [facility]villeMean Corpuscular [id number] 06:50:00* Test Item Value Reference Range Interpretation Comments Mean Corpuscular Hemoglobin (test code = 785-6) 29.2 28-32 [facility]villeMean Corpuscular Hemoglobin Concent 2018-11-06 06:50:00* Test Item Value Reference Range Interpretation Comments Mean Corpuscular Hemoglobin Concent (test code = 786-4) 32.4 31-35 [facility]villeRed Cell Distribution [id number] 06:50:00* Test Item Value Reference Range Interpretation Comments Red Cell Distribution Width (test code = 89392-3) 13.7 11.7 -14.4 [facility]villePlatelet [id number] 06:50:00* Test Item Value Reference Range Interpretation Comments Platelet Count (test code = 777-3) 160 140-360 [facility]villeNeutrophils (%) (Auto)2018-11-06 06:50:00 * Test Item Value Reference Range Interpretation Comments Neutrophils (%) (Auto) (test code = 08435-3) 92.3 38.7-80.0 H [facility]villeLymphocytes (%) (Auto)2018-11-06 06:50:00 * Test Item Value Reference Range Interpretation Comments Lymphocytes (%) (Auto) (test code = 736-9) 4.5 18.0-39.1 L [facility]villeMonocytes (%) (Auto)2018-11-06 06:50:00* Test Item Value Reference Range Interpretation Comments Monocytes (%) (Auto) (test code = 5905-5) 1.2 4.4-11.3 L [facility]villeEosinophils (%) (Auto)2018-11-06 06:50:00 * Test Item Value Reference Range Interpretation Comments Eosinophils (%) (Auto) (test code = 713-8) 0.0 0.0-6.0 [facility] [facility] ([facility])2018-11-06 06:50:00* Test Item Value Reference Range Interpretation Comments Basophils (%) (Auto) (test code = 706-2) 0.2 0.0-1.0 [facility] %2018-11-06 06:50:00* Test Item Value Reference Range Interpretation Comments IM GRANULOCYTES % (test code = IM GRANULOCYTES %) 1.8 0.0- 1.0 H [facility]utrophils # (Auto)2018-11-06 06:50:00* Test Item Value Reference Range Interpretation Comments Neutrophils # (Auto) (test code = 751-8) 8.2 2.1-6.9 H [facility] [place]Lymphocytes # (Auto)2018-11-06 06:50:00* Test Item Value Reference Range Interpretation Comments Lymphocytes # (Auto) (test code = 55869-3) 0.4 1.0-3.2 L [facility] [place]ocytes # (Auto)2018-11-06 06:50:00* Test Item Value Reference Range Interpretation Comments Monocytes # (Auto) (test code = 742-7) 0.1 0.2-0.8 L [facility] [place]osinophils # (Auto)2018-11-06 06:50:00* Test Item Value Reference Range Interpretation Comments Eosinophils # (Auto) (test code = 711-2) 0.0 0.0-0.4 [facility] # (Auto)2018-11-06 06:50:00* Test Item Value Reference Range Interpretation Comments Basophils # (Auto) (test code = 704-7) 0.0 0.0-0.1 [facility]ville[facility] Immature Granulocyte (auto 2018-11-06 06:50:00* Test Item Value Reference Range Interpretation Comments Absolute Immature Granulocyte (auto (blaise t code = Absolute Immature Granulocyte (auto) 0.16 0-0.1 H [facility]villeUrine [id number] 02:50:00* Test Item Value Reference Range Interpretation Comments Urine WBC (test code = 5821-4) 0-5 0-5 [facility]ville[facility] [id number] 02:50:00* Test Item Value Reference Range Interpretation Comments Urine RBC (test code = 38964-6) 6-10 0-5 H [facility] Anmfampg9536-37-94 02:50:00* Test Item Value Reference Range Interpretation Comments Urine Bacteria (test code = 15758-7) MODERATE NONE H [facility] Epithelial [id number] 02:50:00 * Test Item Value Reference Range Interpretation Comments Urine Epithelial Cells (test code = 73460-6) MODERATE NONE [facility] [id number] 02:23:00* Test Item Value Reference Range Interpretation Comments Urine Color (test code = 5778-6) YELLOW YELLOW [facility] [id number] 02:23:00* Test Item Value Reference Range Interpretation Comments Urine Clarity (test code = 85931-0) CLEAR CLEAR [facility]U[facility] Specific Ymqbsju3639-23-25 02:23:00 * Test Item Value Reference Range Interpretation Comments Urine Specific [place] (test code = 5811-5) >=1.030 1.010-1.02 5 [facility] [id number] 02:23:00* Test Item Value Reference Range Interpretation Comments Urine pH (test code = 27545-7) 5.5 5-7 [facility] Leukocyte Hljihhed3636-83-95 02:23:00* Test Item Value Reference Range Interpretation Comments Urine Leukocyte Esterase (test code = 12257-1) NEGATIVE NEGATIV E [facility] Lzytcwq5025-43-96 02:23:00* Test Item Value Reference Range Interpretation Comments Urine Nitrite (test code = 14320-4) NEGATIVE NEGATIVE [facility] Mvnaoow7594-22-02 02:23:00* Test Item Value Reference Range Interpretation Comments Urine Protein (test code = 80752-9) TRACE NEGATIVE H [facility] Glucose (UA)2018-11-06 02:23:00* Test Item Value Reference Range Interpretation Comments Urine Glucose (UA) (test code = 08191-3) NEGATIVE NEGATIVE [facility] Mgmmrdk0761-27-61 02:23:00* Test Item Value Reference Range Interpretation Comments Urine Ketones (test code = 00971-8) NEGATIVE NEGATIVE [facility] Pwyjfknksqwi9776-08-80 02:23:00* Test Item Value Reference Range Interpretation Comments Urine Urobilinogen (test code = 42949-6) 0.2 0.2-1 [facility] Rvffjonzc8915-44-43 02:23:00* Test Item Value Reference Range Interpretation Comments Urine Bilirubin (test code = 1977-8) NEGATIVE NEGATIVE [facility] Eowzf5248-52-48 02:23:00* Test Item Value Reference Range Interpretation Comments Urine Blood (test code = 50687-1) 1+ NEGATIVE [facility]B-Type Natriuretic Hfrshhw6363-23-50 20:17:00* Test Item Value Reference Range Interpretation Comments B-Type Natriuretic Peptide (test code = 08118-1) 23.3 0-100 [facility] [place]villeInfluenza Virus Types A,B Antigen 2018-11-05 20:08:00* Test Item Value Reference Range Interpretation Comments Influenza Virus Types A,B Antigen (test code = 10866-5) NEGATIVE NEGATIVE [facility]villeCHEST SINGLE (PORTABLE)2018-11-05 20:03:00 [facility] [address] [address] Patient Name: JOSEP CRUZ MR #: [id number] : 1950 Age/Sex: 67/F Req #: [id number] Adm Physician: Ordered by: ALEJANDRA CRISOSTOMO MD Report #: [id number] Location: ER Room/Bed: Procedure: [id number] DX /CHEST SINGLE (PORTABLE) Exam Date: 11/05/18 Exam Ti me: 1950 REPORT STATUS: Signed A single frontal view of the chest. HISTORY: Pneumonia COMPARISON: Chest radiograph April 27, 2014. DISCUSSION: Portable technique, limits sensitivity of the exam. Multiple overlying artifacts. Tubes/Lines: None Lungs and pleura: The mid to upper lungs are markedly hyperinflated. Bilateral mid to lower lung prominent peribronchial interstitial markings. Oth erwise, no consolidative pneumonia. No definite pleural effusion or pneumothor ax is identified. Heart and mediastinum: The cardiomediastinal silhouet te appear(s) unremarkable. Bones and soft tissues: Diffusely decreased mineralization of the osseous structures limits bone detail. IMPRESSIO N: 1. Findings remain compatible with chronic obstructive lung disease, the bronchitis component appears more prominent versus the comparison. 2. No fo jordan consolidative pneumonia. Signed by: An HernandezO., M.M.M. on 11/05/2018 8:08 PM Dictated By: MAYTE WYATT DO Electronically S igned By: MAYTE WYATT DO on 11/05/182007 Transcribed By: ALMA ROSA on 11/05/18 2 008 COPY TO: ALEJANDRA CRISOSTOMO MD Total Hlmkopkob4852-30-87 19:59:00* Test Item Value Reference Range Interpretation Comments Total Bilirubin (test code = 1975-2) 1.2 0.2-1.2 [facility]villeAspartate Amino Transf (AST/SGOT) 2018-11-05 19:59:00* Test Item Value Reference Range Interpretation Comments Aspartate Amino Transf (AST/SGOT) (test code = Aspartate Amino Transf (AST/SGOT)) 28 5-34 [facility]Alanine Aminotransferase (ALT/SGPT) 2018-11-05 19:59:00* Test Item Value Reference Range Interpretation Comments Alanine Aminotransferase (ALT/SGPT) (test code = 1742-6) 27 0-55 [facility]villeTotal Kmsvikc7839-83-62 19:59:00* Test Item Value Reference Range Interpretation Comments Total Protein (test code = 2885-2) 7.4 6.5-8.1 [facility] [place]villeAlbumin2019-09-27 19:59:00* Test Item Value Reference Range Interpretation Comments Albumin (test code = 1751-7) 4.3 3.5-5.0 [facility]villeGlobulin2019-09-27 19:59:00* Test Item Value Reference Range Interpretation Comments Globulin (test code = 03006-7) 3.1 2.3-3.5 [facility]villeAlbumin/Globulin [id number] 19:59:00 * Test Item Value Reference Range Interpretation Comments Albumin/Globulin Ratio (test code = 1759-0) 1.4 0.8-2.0 [facility] [place]villeAlkaline Vhijifteehn0573-05-74 19:59:00* Test Item Value Reference Range Interpretation Comments Alkaline Phosphatase (test code = 6768-6) 97 40-150 [facility]villeLipase2019-09-27 19:59:00* Test Item Value Reference Range Interpretation Comments Lipase (test code = 3040-3) 6 8-78 L [facility] [place]villeLIPASE2018-10-29 16:31:00* Test Item Value Reference Range Interpretation Comments LIPASE (BEAKER) (test code = 749) 6 U/L 8-78 L HEPATIC FUNCTION [id number] 16:31:00* Test Item Value Reference Range Interpretation Comments TOTAL PROTEIN (BEAKER) (test code = 770) 5.6 gm/dL 6.0-8.3 L ALBUMIN (BEAKER) (test code = 1145) 3.5 g/dL 3.5-5.0 BILIRUBIN TOTAL (BEAKER) (test code = 377) 0.6 mg/dL 0.2-1.2 BILIRUBIN DIRECT (BEAKER) (test code = 706) 0.3 mg/dL 0.1-0.5 ALKALINE PHOSPHATASE (BEAKER) (test code = 346) 67 U/L 40-150 AST (SGOT) (BEAKER) (test code = 353) 24 U/L 5-34 ALT (SGPT) (BEAKER) (test code = 347) 18 U/L 6-55 TISSUE [id number] 10:51:00Surgical Pathology Report Case: [id number] Authorizing Provider: Ricardo Ireland Collected: 12/03/2017 0929 MD Barry Ordering Location: [facility] Endoscopy Received: 12/03/2017 1441 Services Pathologist: Chika Bradford MD Specimen: Polyp, Colon - Right/Ascending, POLYP-TAKEN BY ESD. EVALUATE MARGINS COLON, ASCENDING, ENDOSCOPIC SUBMUCOSAL DISSECTION OF POLYP- SESSILE SERRATED POLYP/ADENOMA- NEGATIVE FOR CYTOLOGIC ATYPIA - NEGATIVE FOR INVASIVE ADENOCARCINOMA- POLYP EXTENDS TO PERIPHERAL MUCOSAL MARGIN- see comment Signing Pathologist Direct Phone Line: [phone] signed by Chika Bradford MD on 12/07/2017 at 10:51 AMEndoscopic correlation is recommended to determine completeness of excision of the polyp. [address]Ohlskjkyh colon polypRight/ascending colon polypReceived in formalin labeled [...] No cytologic atypia or invasive adenocarcinoma is seen.[id number] 06:13:00 * Test Item Value Reference Range Interpretation Comments MAGNESIUM (BEAKER) (test code = 627) 1.9 mg/dL 1.6-2.6 BASIC METABOLIC [id number] 06:13:00* Test Item Value Reference Range Interpretation Comments SODIUM (BEAKER) (test code = 381) 143 meq/L 136-145 POTASSIUM (BEAKER) (test code = 379) 3.5 meq/L 3.5-5.1 CHLORIDE (BEAKER) (test code = 382) 108 meq/L 98-107 H CO2 (BEAKER) (test code = 355) 29 meq/L 22-29 BLOOD UREA NITROGEN (BEAKER) (test code = 354) 6 mg/dL 7-21 L CREATININE (BEAKER) (test code = 358) 0.63 mg/dL 0.57-1.25 GLUCOSE RANDOM (BEAKER) (test code = 652) 97 mg/dL 70-105 CALCIUM (BEAKER) (test code = 697) 8.6 mg/dL 8.4-10.2 EGFR (BEAKER) (test code = 1092) 95 mL/min/1.73 sq m ESTIMATED GFR IS NOT ACCURATE CREATININE CLEARANCE IN PREDICTING GLOMERULAR FILTRATION RATE. ESTIMATED GFR IS NOT APPLICABLE FOR DIALYSIS PATIENTS. CBC W/PLT COUNT & AUTO [id number] 05:43:00* Test Item Value Reference Range Interpretation Comments WHITE BLOOD CELL COUNT (BEAKER) (test code = 775) 4.5 K/ L 3.5- 10.5 RED BLOOD CELL COUNT (BEAKER) (test code = 761) 4.13 M/ L 3.93-5 .22 HEMOGLOBIN (BEAKER) (test code = 410) 11.7 GM/DL 11.2-15.7 HEMATOCRIT (BEAKER) (test code = 411) 38.0 % 34.1-44.9 MEAN CORPUSCULAR VOLUME (BEAKER) (test code = 753) 92.0 fL 79. 4-94.8 MEAN CORPUSCULAR HEMOGLOBIN (BEAKER) (test code = 751) 28.3 pg 25.6-32.2 MEAN CORPUSCULAR HEMOGLOBIN CONC (BEAKER) (test code = 752) 30.8 GM/DL 32.2-35.5 L RED CELL DISTRIBUTION WIDTH (BEAKER) (test code = 412) 13.9 % 11.7-14.4 PLATELET COUNT (BEAKER) (test code = 756) 150 K/CU MM 150-450 MEAN PLATELET VOLUME (BEAKER) (test code = 754) 10.7 fL 9.4-12 .3 NUCLEATED RED BLOOD CELLS (BEAKER) (test code = 413) 0 /100 WBC 0 -0 NEUTROPHILS RELATIVE PERCENT (BEAKER) (test code = 429) 75 % LYMPHOCYTES RELATIVE PERCENT (BEAKER) (test code = 430) 12 % MONOCYTES RELATIVE PERCENT (BEAKER) (test code = 431) 7 % EOSINOPHILS RELATIVE PERCENT (BEAKER) (test code = 432) 4 % BASOPHILS RELATIVE PERCENT (BEAKER) (test code = 437) 1 % NEUTROPHILS ABSOLUTE COUNT (BEAKER) (test code = 670) 3.38 K/ L 1.56-6.13 LYMPHOCYTES ABSOLUTE COUNT (BEAKER) (test code = 414) 0.52 K/ L 1.18-3.74 L MONOCYTES ABSOLUTE COUNT (BEAKER) (test code = 415) 0.31 K/ L 0. 24-0.36 EOSINOPHILS ABSOLUTE COUNT (BEAKER) (test code = 416) 0.19 K/ L 0.04-0.36 BASOPHILS ABSOLUTE COUNT (BEAKER) (test code = 417) 0.03 K/ L 0. 01-0.08 IMMATURE GRANULOCYTES-RELATIVE PERCENT (BEAKER) (test code = 2801) 1 % 0-1 [id number] 07:07:00* Test Item Value Reference Range Interpretation Comments MAGNESIUM (BEAKER) (test code = 627) 1.8 mg/dL 1.6-2.6 Specimen slightly hemolyzed BASIC METABOLIC [id number] 07:07:00* Test Item Value Reference Range Interpretation Comments SODIUM (BEAKER) (test code = 381) 141 meq/L 136-145 POTASSIUM (BEAKER) (test code = 379) 4.0 meq/L 3.5-5.1 Specimen slightly hemolyzed CHLORIDE (BEAKER) (test code = 382) 107 meq/L 98-107 CO2 (BEAKER) (test code = 355) 23 meq/L 22-29 BLOOD UREA NITROGEN (BEAKER) (test code = 354) 5 mg/dL 7-21 L CREATININE (BEAKER) (test code = 358) 0.59 mg/dL 0.57-1.25 Specimen slightly hemolyzed GLUCOSE RANDOM (BEAKER) (test code = 652) 76 mg/dL 70-105 CALCIUM (BEAKER) (test code = 697) 8.9 mg/dL 8.4-10.2 EGFR (BEAKER) (test code = 1092) 102 mL/min/1.73 sq m ESTIMATED GFR IS NOT ACCURATE CREATININE CLEARANCE IN PREDICTING GLOMERULAR FILTRATION RATE. ESTIMATED GFR IS NOT APPLICABLE FOR DIALYSIS PATIENTS. CBC W/PLT COUNT & AUTO [id number] 06:56:00* Test Item Value Reference Range Interpretation Comments WHITE BLOOD CELL COUNT (BEAKER) (test code = 775) 5.9 K/ L 3.5- 10.5 RED BLOOD CELL COUNT (BEAKER) (test code = 761) 3.97 M/ L 3.93-5 .22 HEMOGLOBIN (BEAKER) (test code = 410) 11.4 GM/DL 11.2-15.7 HEMATOCRIT (BEAKER) (test code = 411) 36.7 % 34.1-44.9 MEAN CORPUSCULAR VOLUME (BEAKER) (test code = 753) 92.4 fL 79. 4-94.8 MEAN CORPUSCULAR HEMOGLOBIN (BEAKER) (test code = 751) 28.7 pg 25.6-32.2 MEAN CORPUSCULAR HEMOGLOBIN CONC (BEAKER) (test code = 752) 31.1 GM/DL 32.2-35.5 L RED CELL DISTRIBUTION WIDTH (BEAKER) (test code = 412) 13.8 % 11.7-14.4 PLATELET COUNT (BEAKER) (test code = 756) 127 K/CU MM 150-450 L MEAN PLATELET VOLUME (BEAKER) (test code = 754) 11.2 fL 9.4-12 .3 NUCLEATED RED BLOOD CELLS (BEAKER) (test code = 413) 0 /100 WBC 0 -0 NEUTROPHILS RELATIVE PERCENT (BEAKER) (test code = 429) 83 % LYMPHOCYTES RELATIVE PERCENT (BEAKER) (test code = 430) 6 % MONOCYTES RELATIVE PERCENT (BEAKER) (test code = 431) 6 % EOSINOPHILS RELATIVE PERCENT (BEAKER) (test code = 432) 4 % BASOPHILS RELATIVE PERCENT (BEAKER) (test code = 437) 0 % NEUTROPHILS ABSOLUTE COUNT (BEAKER) (test code = 670) 4.91 K/ L 1.56-6.13 LYMPHOCYTES ABSOLUTE COUNT (BEAKER) (test code = 414) 0.36 K/ L 1.18-3.74 L MONOCYTES ABSOLUTE COUNT (BEAKER) (test code = 415) 0.35 K/ L 0. 24-0.36 EOSINOPHILS ABSOLUTE COUNT (BEAKER) (test code = 416) 0.22 K/ L 0.04-0.36 BASOPHILS ABSOLUTE COUNT (BEAKER) (test code = 417) 0.02 K/ L 0. 01-0.08 IMMATURE GRANULOCYTES-RELATIVE PERCENT (BEAKER) (test code = 2801) 1 % 0-1 CBC W/PLT COUNT & AUTO [id number] 07:18:00* Test Item Value Reference Range Interpretation Comments WHITE BLOOD CELL COUNT (BEAKER) (test code = 775) 9.2 K/ L 3.5- 10.5 RED BLOOD CELL COUNT (BEAKER) (test code = 761) 4.09 M/ L 3.93-5 .22 HEMOGLOBIN (BEAKER) (test code = 410) 11.7 GM/DL 11.2-15.7 HEMATOCRIT (BEAKER) (test code = 411) 38.1 % 34.1-44.9 MEAN CORPUSCULAR VOLUME (BEAKER) (test code = 753) 93.2 fL 79. 4-94.8 MEAN CORPUSCULAR HEMOGLOBIN (BEAKER) (test code = 751) 28.6 pg 25.6-32.2 MEAN CORPUSCULAR HEMOGLOBIN CONC (BEAKER) (test code = 752) 30.7 GM/DL 32.2-35.5 L RED CELL DISTRIBUTION WIDTH (BEAKER) (test code = 412) 14.1 % 11.7-14.4 PLATELET COUNT (BEAKER) (test code = 756) 115 K/CU MM 150-450 L MEAN PLATELET VOLUME (BEAKER) (test code = 754) 11.1 fL 9.4-12 .3 NUCLEATED RED BLOOD CELLS (BEAKER) (test code = 413) 0 /100 WBC 0 -0 NEUTROPHILS RELATIVE PERCENT (BEAKER) (test code = 429) 88 % LYMPHOCYTES RELATIVE PERCENT (BEAKER) (test code = 430) 5 % MONOCYTES RELATIVE PERCENT (BEAKER) (test code = 431) 5 % EOSINOPHILS RELATIVE PERCENT (BEAKER) (test code = 432) 2 % BASOPHILS RELATIVE PERCENT (BEAKER) (test code = 437) 0 % NEUTROPHILS ABSOLUTE COUNT (BEAKER) (test code = 670) 8.13 K/ L 1.56-6.13 H LYMPHOCYTES ABSOLUTE COUNT (BEAKER) (test code = 414) 0.43 K/ L 1.18-3.74 L MONOCYTES ABSOLUTE COUNT (BEAKER) (test code = 415) 0.43 K/ L 0. 24-0.36 H EOSINOPHILS ABSOLUTE COUNT (BEAKER) (test code = 416) 0.16 K/ L 0.04-0.36 BASOPHILS ABSOLUTE COUNT (BEAKER) (test code = 417) 0.03 K/ L 0. 01-0.08 IMMATURE GRANULOCYTES-RELATIVE PERCENT (BEAKER) (test code = 2801) 1 % 0-1 [id number] 07:14:00* Test Item Value Reference Range Interpretation Comments MAGNESIUM (BEAKER) (test code = 627) 1.8 mg/dL 1.6-2.6 BASIC METABOLIC [id number] 07:14:00* Test Item Value Reference Range Interpretation Comments SODIUM (BEAKER) (test code = 381) 137 meq/L 136-145 POTASSIUM (BEAKER) (test code = 379) 4.0 meq/L 3.5-5.1 CHLORIDE (BEAKER) (test code = 382) 107 meq/L 98-107 CO2 (BEAKER) (test code = 355) 23 meq/L 22-29 BLOOD UREA NITROGEN (BEAKER) (test code = 354) 6 mg/dL 7-21 L CREATININE (BEAKER) (test code = 358) 0.61 mg/dL 0.57-1.25 GLUCOSE RANDOM (BEAKER) (test code = 652) 80 mg/dL 70-105 CALCIUM (BEAKER) (test code = 697) 8.9 mg/dL 8.4-10.2 EGFR (BEAKER) (test code = 1092) 98 mL/min/1.73 sq m ESTIMATED GFR IS NOT ACCURATE CREATININE CLEARANCE IN PREDICTING GLOMERULAR FILTRATION RATE. ESTIMATED GFR IS NOT APPLICABLE FOR DIALYSIS PATIENTS. CT, [id number] 03:16:00Oral and rectal contrastFINAL REPORT EXAMINATION: CT [...] tion with pancreatic function studies recommended. Signed: Olga Tay MDReport Verified Date/Time: 12/05/2017 03:16:22 Reading Location: [address] Single ton Reading Room Electronically signed by: OLGA TAY M.D. on 8 03:16 AM RAD, ABDOMEN/KUB, 1 VIEW [id number] 16:43:00Reason for exam:->abd painShould this be performed [...] relay them to the physician. Signed: Gerry Villarreal MDReport Verified Date/Time: 12/04/2017 16:43:26 Reading Location: [address] Consult Reading Room Electronically signed by: GERRY VILLARREAL M.D. on 04:43 PM CBC W/PLT COUNT & AUTO [id number] 06:41:00* Test Item Value Reference Range Interpretation Comments WHITE BLOOD CELL COUNT (BEAKER) (test code = 775) 12.9 K/ L 3.5- 10.5 H RED BLOOD CELL COUNT (BEAKER) (test code = 761) 4.21 M/ L 3.93-5 .22 HEMOGLOBIN (BEAKER) (test code = 410) 11.9 GM/DL 11.2-15.7 HEMATOCRIT (BEAKER) (test code = 411) 38.6 % 34.1-44.9 MEAN CORPUSCULAR VOLUME (BEAKER) (test code = 753) 91.7 fL 79. 4-94.8 MEAN CORPUSCULAR HEMOGLOBIN (BEAKER) (test code = 751) 28.3 pg 25.6-32.2 MEAN CORPUSCULAR HEMOGLOBIN CONC (BEAKER) (test code = 752) 30.8 GM/DL 32.2-35.5 L RED CELL DISTRIBUTION WIDTH (BEAKER) (test code = 412) 14.0 % 11.7-14.4 PLATELET COUNT (BEAKER) (test code = 756) 136 K/CU MM 150-450 L MEAN PLATELET VOLUME (BEAKER) (test code = 754) 11.0 fL 9.4-12 .3 NUCLEATED RED BLOOD CELLS (BEAKER) (test code = 413) 0 /100 WBC 0 -0 NEUTROPHILS RELATIVE PERCENT (BEAKER) (test code = 429) 91 % LYMPHOCYTES RELATIVE PERCENT (BEAKER) (test code = 430) 5 % MONOCYTES RELATIVE PERCENT (BEAKER) (test code = 431) 4 % EOSINOPHILS RELATIVE PERCENT (BEAKER) (test code = 432) 0 % BASOPHILS RELATIVE PERCENT (BEAKER) (test code = 437) 0 % NEUTROPHILS ABSOLUTE COUNT (BEAKER) (test code = 670) 11.73 K/ L 1.56-6.13 H LYMPHOCYTES ABSOLUTE COUNT (BEAKER) (test code = 414) 0.58 K/ L 1.18-3.74 L MONOCYTES ABSOLUTE COUNT (BEAKER) (test code = 415) 0.49 K/ L 0. 24-0.36 H EOSINOPHILS ABSOLUTE COUNT (BEAKER) (test code = 416) 0.01 K/ L 0.04-0.36 L BASOPHILS ABSOLUTE COUNT (BEAKER) (test code = 417) 0.02 K/ L 0. 01-0.08 IMMATURE GRANULOCYTES-RELATIVE PERCENT (BEAKER) (test code = 2801) 1 % 0-1 BASIC METABOLIC [id number] 06:12:00* Test Item Value Reference Range Interpretation Comments SODIUM (BEAKER) (test code = 381) 143 meq/L 136-145 POTASSIUM (BEAKER) (test code = 379) 3.9 meq/L 3.5-5.1 CHLORIDE (BEAKER) (test code = 382) 109 meq/L 98-107 H CO2 (BEAKER) (test code = 355) 26 meq/L 22-29 BLOOD UREA NITROGEN (BEAKER) (test code = 354) 14 mg/dL 7-21 CREATININE (BEAKER) (test code = 358) 0.75 mg/dL 0.57-1.25 GLUCOSE RANDOM (BEAKER) (test code = 652) 114 mg/dL 70-105 H CALCIUM (BEAKER) (test code = 697) 8.6 mg/dL 8.4-10.2 EGFR (BEAKER) (test code = 1092) 77 mL/min/1.73 sq m ESTIMATED GFR IS NOT ACCURATE CREATININE CLEARANCE IN PREDICTING GLOMERULAR FILTRATION RATE. ESTIMATED GFR IS NOT APPLICABLE FOR DIALYSIS PATIENTS.
[2019-10-12 15:51] LABS: ALANINE AMINOTRANSFERASE 25 IU/L (0-55); ALBUMIN 5.1 g/dL (3.5-5.0); ALKALINE PHOSPHATASE 92 IU/L (40-150); ANION GAP 21.7 mmol/L (8-16); BLOOD UREA NITROGEN 16 mg/dL (7-26); BUN/CREATININE RATIO 22 (6-25); CALCIUM 9.7 mg/dL (8.4-10.2); CARBON DIOXIDE 22 mmol/L (22-29); CHLORIDE 99 mmol/L (98-107); CREATININE, SERUM 0.73 mg/dL (0.57-1.11); EST GLOMERULAR FILTRATION RATE > 60 ML/MIN (60-); GLUCOSE 100 mg/dL (74-118); POTASSIUM 3.7 mmol/L (3.5-5.1); SODIUM 139 mmol/L (136-145)
--- NOTE | 2019-10-12 17:12 | Diagnostic Imaging Report ---
CT of the abdomen and pelvis with contrast TECHNIQUE: CT of the abdomen and pelvis WITH intravenous contrast and WITHOUT oral contrast. Dose modulation, iterative reconstruction, and/or weight-based adjustment of the mA/kV was utilized to reduce the radiation dose to as low as reasonably achievable. IV CONTRAST: 100 mL of Isovue-370 ORAL CONTRAST: None RADIATION DOSE: Total DLP: 510 mGy*cm COMPLICATIONS: None INDICATION: ^Y ^abd pain, lower, bilateral ^[id number] ^[id number]. COMPARISON: None. FINDINGS: LOWER THORAX: Severe emphysematous changes of the lung bases are noted.. HEPATOBILIARY: No suspicious solid hepatic lesions. There are a few scattered subcentimeter hypodense lesions, too small to accurately characterize. Gallbladder is unremarkable. No biliary ductal dilatation. SPLEEN: Spleen is enlarged. There are innumerable hypodense lesions scattered throughout the entire spleen some of which do measure heterogeneous enhancement for example anteriorly on image #13 measuring up to 1.7 cm. The largest hypodense lesion is within the posterior/inferior aspect measuring up to 2.2 cm. PANCREAS: No focal masses or ductal dilatation. ADRENALS: No adrenal nodules. KIDNEYS/URETERS: No hydronephrosis, stones, or masses. PELVIC ORGANS/BLADDER: Urinary bladder is unremarkable. Uterus is surgically absent. Pelvic phleboliths are noted. PERITONEUM/RETROPERITONEUM: No free air or fluid. Fat-containing umbilical hernia is noted. LYMPH NODES: No lymphadenopathy. VESSELS: Negative for abdominal aortic aneurysm. Moderate to severe circumferential atherosclerotic calcifications of the infrarenal abdominal aorta are noted. GI TRACT: Lack of oral contrast limits evaluation. Small hiatal hernia is noted. Stomach is decompressed limiting evaluation. Portions of the colon are decompressed limiting evaluation. Question wall thickening versus artifact of under distention within the proximal colon (axial images 38 through 59). Numerous diverticula are noted of the sigmoid and distal descending colon. A few diverticula of the ascending colon are also noted. No definite surrounding inflammatory changes. Assessment for wall thickening is limited due to underdistended state. Negative for obstruction. No surrounding inflammatory changes are identified. BONES AND SOFT TISSUES: Osseous structures are diffusely demineralized. Mild compression deformity of the superior endplate of L1 is noted. Focal advanced degenerative changes noted at L5-S1. No suspicious lytic or blastic lesion is identified. Soft tissues are unremarkable. IMPRESSION: 1. Negative for acute abdominopelvic process 2. Stable innumerable hypodensities of the enlarged spleen, a few which demonstrate heterogeneous enhancement. Findings are nonspecific, underlying malignancy such as lymphoma is difficult to exclude. 3. Negative for bowel obstruction. Question mild wall thickening versus artifact of under distention within the proximal colon. Mild/subtle colitis is difficult to exclude. 4. Diffuse colonic diverticulosis. No surrounding inflammatory changes are identified. 5. Scattered hypodensities within the liver are too small to accurately characterize and similar to prior exam. Statistically these represent cysts. 6. Severe emphysematous changes of the lung bases. Signed by: Henrik Henry MD on 10/12/2019 5:09 PM
[2019-10-12] MEDS ORDERED: ONDANSETRON HCL INJ 2MG/ML 2ML 2 MG/ML VIAL IV STA ×2 (17:38→18:48)
[2019-10-12 17:44] LABS: CLARITY,URINE CLEAR (CLEAR); COLOR,URINE YELLOW (YELLOW)
[2019-10-12] MEDS ORDERED: LACTATED RINGER'S 1,000 ML INJ ONE (17:45)
[2019-10-12 17:46] LABS: BILIRUBIN,URINE NEGATIVE (NEGATIVE); KETONES,URINE 2+ (NEGATIVE); LEUKOCYTE ESTERASE ,URINE SMALL (NEGATIVE); NITRITE,URINE POSITIVE (NEGATIVE); PROTEIN,URINE DIPSTICK TRACE (NEGATIVE); URINE UROBILINOGEN 0.2 mg/dL (0.2 - 1)
[2019-10-12 17:58] LABS: BACTERIA,URINE MODERATE /HPF; EPITHELIAL CELLS,URINE FEW /LPF
--- OUTSIDE RECORDS SUMMARY | 2019-10-12 18:33 | XMS REPORT | Clinical Summary ---
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 Name Role Phone Sharpless PCP Allergies Comments [...] Area Manufactur er 05/09/2018 4301-02 / / [id number] Memb Seprafilm Adhen [place] 5x6 Cement/Gonzalez N/A: Abdomen GENZYME 4301-02 - [id number] ler/Adhesi MARTINEZ: Implanted: Qty: 2 on 02/18/2016 by ve BIO -SURG Irving Simon MD Results Not on fileafter 10/11/2018 Insurance Payer Benefit Subscriber ID Type Phone Address Plan / Group [facility]IC[facility] [place] [phone] Advance Directives For more information, please contact: [facility] [address] [place] [address] Date Inactivated Comments Code Status Date Activated 12/08/2017 12:05 PM Full Code 12/03/2017 3:14 PM This code status was determined by: Patient 02/26/2016 4:53 PM Full Code 02/18/2016 6:46 AM This code status was determined by: Patient
--- OUTSIDE RECORDS SUMMARY | 2019-10-12 18:33 | XMS REPORT | Clinical Summary ---
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
--- OUTSIDE RECORDS SUMMARY | 2019-10-12 18:34 | XMS REPORT | Continuity of Care Document ---
Author Author [facility] t Organization 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 Role Phone NONSTAFF PCP Unavailable Gina Escalera Attphys Unavailable Nini KAUFFMAN Attphys Unavailable OTHMAN, OTHMAMAURY GANDARA Attphys Unavailable Nini KAUFFMAN YICHING Admphys Unavailable OTHMAN, OTHMAN BARRY MOHAMED Admphys Unavailable Payers Payer Name Policy Type Policy Number Effective Date Expiration Date Bob loya [employer]sey [employer] Medicare Advantage [id number] [facility] Problems Condition Name Condition Details Condition Category Status Onset Date Resolution Date Last Treatment Date Treating Clinician Comments Source Pneumoperitoneum Pneumoperitoneum Disease Active 2017-12-05 00:00:00 [facility] 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 2017-12-04 00:00:00 [facility] Colonic polyp Colonic polyp Disease Active 2017-12-03 00:00:00 [facility] COPD (chronic obstructive pulmonary disease) COPD (chr onic obstructive pulmonary disease) Disease Active 2017-12-03 00:00:00 Overview: stable with meds.O2 1.5 L/min per n/c at HS only [facility] Chronic back pain Chronic back pain Disease Active 2017-12-03 00:00:00 [facility] Former smoker Former smoker Disease Active 2017-12-03 00:00:00 [facility] GERD (gastroesophageal reflux disease) GERD (gastroesophagea l reflux disease) Disease Active 2017-12-03 00:00:00 [facility] Major depressive disorder Major depressive disorder Disease Ac tive 2017-12-03 00:00:00 [facility] Colitis Colitis Disease Active 2016-03-08 00:00:00 [facility] Colovaginal fistula Colovaginal fistula Disease Active 2016-02-18 00:00 :00 [facility] Bronchitis Bronchitis Problem Active 2014-04-26 00:00:00 [facility] Chronic obstructive bronchitis COPD bronchitis Problem Active 2014-04-26 00:00:00 [facility] Dental decay Dental decay Disease Active 2013-02-23 00:00:00 [facility] Decay, teeth Decay, teeth Disease Active 2012-12-29 00:00:00 [facility] COPD (chronic obstructive pulmonary disease) COPD (chr onic obstructive pulmonary disease) Disease Active 2012-07-15 00:00:00 [facility] Pneumonia PNA (pneumonia) Problem Active [facility] Allergies, Adverse Reactions, Alerts Allergy Name Allergy Type Status Severity Reaction(s) Onset Date Inacti ve Date Treating Clinician Comments Source Azithromycin Propensity to adverse reactions Active 201 08-09-02 00:00:00 [facility] Codeine Drug Allergy Active Nausea And Vomiting 2016-02-12 00:00:0 0 [facility] Budesonide-Formoterol Drug Intolerance Active 3 00:00:00 Metal taste in her mouth [facility] Bupropion Hcl Propensity to adverse reactions Active 25-02-02 00:00:00 [facility] r No Known Allergies DA Active U 2011-09-26 00:00:00 [facility] Family History Family Member Diagnosis Comments Start Date Stop Date Source Natural father Cancer Anam Renee [facility] Natural mother Cancer Anam Renee [facility] Natural sister Cancer Anam Renee [facility] Social History Social Habit Start Date Stop Date Quantity Comments Source Sex Assigned At [facility] Cigarettes smoked current (pack per day) - Reported 00:00:00 2017-12-04 00:00:00 [facility] Cigarette pack-years 2017-12-04 00:00:00 2017-12-04 00:00:00 [facility] Alcohol intake 2015-01-04 00:00:00 2015-01-04 00:00:00 Current non-drinker of alcohol (finding) [facility] Tobacco Comment 2013-04-12 00:00:00 2013-04-12 00:00:00 passive smo ke exposure [facility] History of tobacco use 2012-02-15 00:00:00 Current smoker [facility] Smoking Status Start Date Stop Date Source Former smoker 2015-01-04 00:00:00 2015-01-04 00:00:00 [facility] ealt Medications Ordered Medication Name Filled Medication Name Start Date Stop Da te Current Medication? 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 [facility] TiZANidine (ZANAFLEX) 4 MG capsule 2017-12-07 00:00:00 Yes 4mg Take 1 capsule (4 mg total) by mouth 3 (three) times daily as needed for Muscle spasms. [facility] HYDROcodone-acetaminophen (NORCO 10-325) 10-325 mg per table t 2017-12-07 00:00:00 Yes 1{tbl} Take 1 tab let by mouth every 4 (four) hours as needed for Pain. Max Daily Amount: 6 tablets [facility] atorvastatin (LIPITOR) 40 MG tablet 2017-12-07 00:00:0 0 2018-12-07 23:59:00 No 40mg QD Take 1 tablet (40 mg total) by mouth nig htly. [facility] albuterol HFA (VENTOLIN HFA) 90 mcg/actuation inhaler 2017-12-07 00:00:00 2018-12-07 23:59:00 No 2{puff} Inhal e 2 puffs by mouth via inhaler every 6 (six) hours as needed for Wheezing or Shortness of Breath. [facility] ipratropium (ATROVENT) 0.02 % nebulizer solution 2017-12-07 00:00:00 2018-12-07 23:59:00 No .5mg Take 2.5 mLs (0.5 mg total) by nebulization every 6 (six) hours as needed for Wheezing. [facility] mometasone-formoterol (DULERA) 100-5 mcg/actuation inhaler 2017-12-07 00:00:00 2018-12-07 23:59:00 No 2{puff} Q.5D Inhale 2 puffs by mouth via inhaler 2 (two) times daily. [facility] tiotropium (SPIRIVA) 18 mcg inhalation capsule 2 00:00:00 2018-12-07 23:59:00 No 18ug QD Inhale 1 capsu le (18 mcg total) by mouth via inhaler daily. [facility] omeprazole (PRILOSEC) 40 MG capsule 2017-12-01 08:39:22 Yes 40mg QD Take 40 mg by mouth daily. [facility] roflumilast (DALIRESP) 500 mcg Tab tablet 2017-12-01 08:38:46 Yes QD Take by mouth daily. [facility] gabapentin (NEURONTIN) 300 MG capsule 2017-12-01 08:38:46 Yes 300mg Q.[id number] Take 300 mg by mouth 3 (three) times daily. [facility] famotidine (PEPCID) 40 MG tablet 2017-12-01 08:38:46 Yes 40mg QD Take 40 mg by mouth nightly. [facility] predniSONE (DELTASONE) 10 MG tablet 2017-12-01 08:34:48 Yes 5mg QD Take 5 mg by mouth daily . [facility] montelukast (SINGULAIR) 10 mg tablet 2016-02-18 07:10:24 Ye s 10mg QD Take 10 mg by mouth nightly. [facility] sertraline (ZOLOFT) 100 MG tablet 2016-02-12 12:37:20 Yes 100mg QD Take 100 mg by mouth daily. [facility] Benzonatate (Tessalon Perle) 100 Mg Capsule Benzonatat e (Tessalon Perle) 100 Mg Capsule 2014-05-02 00:00:00 Yes Jinny Brady 100 Every 8 Hours as needed for Cough [facility] Loratadine/Pseudoephedrine (Claritin-D 24 Hour Tablet) 1 Each Tab.er.24h Loratadine/Pseudoephedrine (Claritin-D 24 Hour Tablet) 1 Each Tab.er.24h 2014-05-02 00:00:00 Yes Jinny Brady 1 Daily [facility] Metoprolol Tartrate (Lopressor) 25 Mg Tab Metoprolol T artrate (Lopressor) 25 Mg Tab 2014-05-02 00:00:00 Yes Jinny Brady 12.5 Every 12 Hours [facility] Montelukast Sodium (Singulair) 10 Mg Tablet Montelukas t Sodium (Singulair) 10 Mg Tablet 2014-05-02 00:00:00 Yes Jinny Brady 10 Bedti [facility] Theophylline Anhydrous 200 Mg Tab.er.12h Theophylline Anhydrous 200 Mg Tab.er.12h 2014-05-02 00:00:00 Yes Jinny Brady 300 D aily [facility] Prednisone 20 Mg Tab, 20 Mg Oral Prednisone 20 Mg Tab, 20 Mg Oral 2014-05-02 00:00:00 2018-11-11 00:00:00 No Jinny Brady 20 Daily [facility] alendronate (FOSAMAX) 70 mg tablet 2014-01-03 00:00:00 Yes Osteoporosis, unspecified Take 1 tablet once a week on empty stomach with 8 oz of water and remain upright for 30 minutes. [facility] estrogens, conjugated, (PREMARIN) 0.625 mg tablet 2013-11-29 00:00:00 Yes Menopausal syndrome (hot flashes) .625mg QD Take 1 tablet by mouth d aily. [facility] fluticasone-salmeterol (ADVAIR DISKUS) 500-50 mcg/dose disku s inhaler 2013-09-29 00:00:00 Yes COPD exacerbation 1{puff} Q. 5D Inhale 1 Puff by mouth 2 times daily [facility] tiotropium (SPIRIVA WITH HANDIHALER) 18 mcg inhalation capsu le 2013-09-29 00:00:00 Yes COPD exacerbation 1{capsule} QD I nhale 1 capsule by mouth daily [facility] codeine-guaiFENesin (CHERATUSSIN AC) 10-100 mg/5 mL syrup 2013-09-29 00:00:00 Yes COPD exacerbation 5mL Take 5 mL by mouth 4 times daily as needed for Cough. [facility] predniSONE (DELTASONE) 20 mg tablet 2013-09-29 00:00:00 Yes Wheezing Take 2 tablets by mouth for 3 days, then 1 tablet for 3 days, then 1/2 tablet for 4 days. [facility] varenicline (CHANTIX) 1 mg tablet 2013-06-30 00:00:00 Yes COPD (chronic obstructive pulmonary disease) 1mg Q.5D Take 1 tablet by mouth 2 times daily. [facility] albuterol (VENTOLIN HFA,PROVENTIL HFA,PROAIR HFA) 90 mcg/act uation inhaler 2013-05-19 00:00:00 Yes Wheezing 2{puff} Inhale 2 Puffs by mouth 4 times daily as needed for Wheezing. [facility] albuterol (PROVENTIL) 2.5 mg /3 mL (0.083 %) nebulizer solut ion 2013-05-19 00:00:00 Yes COPD exacerbation 2.5mg In dawson 3 mL by mouth every 4 hours as needed for Wheezing or Shortness of Breath. [facility] ipratropium (ATROVENT) 0.02 % nebulizer solution 2013-05-19 00:00:00 Yes Wheezing .5mg Inhale 2.5 mL by mouth 4 times daily. [facility] Albuterol Sulfate 1.25 Mg/3 Ml Vial.neb Albuterol Sulfate 1. 25 Mg/3 Ml Vial.neb Yes 1 As Needed [facility] Albuterol Sulfate (Ventolin Hfa) 18 Gm Hfa.aer.ad Albu terol Sulfate (Ventolin Hfa) 18 Gm Hfa.aer.ad Yes 1 As Needed [facility] Famotidine (Pepcid) 20 Mg Tablet Famotidine (Pepcid) 20 Mg Tablet Yes 20 Bedtime [facility] Fluticasone/Salmeterol (Advair 250-50 Diskus) 1 Each D isk.w.dev Fluticasone/Salmeterol (Advair 250-50 Diskus) 1 Each Disk.w.dev Yes 1 Twice A Day [facility] Gabapentin 300 Mg Capsule Gabapentin 300 Mg Capsule Yes 300 Three Times A Day [facility] Hydrocodone Bit/Acetaminophen ([place] 10-325 Tablet) 1 Each Tablet Hydrocodone Bit/Acetaminophen ([place] 10-325 Tablet) 1 Each Tablet Yes 1 Every 6 Hours as needed for Pain [facility] Omeprazole 40 Mg Capsule. Omeprazole 40 Mg Capsule. Yes 40 Daily [facility] Roflumilast (Daliresp) 500 Mcg Tablet Roflumilast (Daliresp) 500 Mc g Tablet Yes 500 Daily [facility] Sertraline Hcl (Zoloft) 100 Mg Tablet Sertraline Hcl (Zoloft) 100 M g Tablet Yes 100 Daily [facility] Tiotropium [place] (Spiriva) 18 Mcg Cap.w.dev Tiotropi um [place] (Spiriva) 18 Mcg Cap.w.dev Yes [facility] Tizanidine Hcl 4 Mg Tablet Tizanidine Hcl 4 Mg Tablet Yes 4 Three Times A Day [facility] Methylprednisolone 4 Mg Tab.ds.pk, 1 Methylprednisolone 4 Mg Tab .ds.pk, 1 2014-05-02 00:00:00 No 1 [facility] Benzonatate (Tessalon Perle) 100 Mg Capsule, 100 Mg Or al Benzonatate (Tessalon Perle) 100 Mg Capsule, 100 Mg Oral 2014-04-26 00:00:00 No 100 As Needed [facility] Unable To Obtain , Unable To Obtain , 2013-01-30 00:00:00 No [facility] Immunizations Ordered Immunization Name Filled Immunization Name Date Status Comments Source Influenza Vaccine 2013-11-24 00:00:00 Completed [facility] Procedures Procedure Date / Time Performed Performing Clinician [facility] e Computed tomography of chest without contrast 2018-11-09 00: 00:00 GASTON DIAL [facility] Plan of Care Planned Activity Planned Date Details Comments Source Future Scheduled Test 2027-11-21 00:00:00 Screening for gilma gnant neoplasm of colon (procedure) [code = 629487984] [facility] Future Scheduled Test 2019-11-10 00:00:00 IMM Influenza Seas onal Nov to April (>/= 19 yrs) [code = IMM Influenza Seasonal Nov to April (>/= 19 yrs)] [facility] Scheduled Test 2019-10-11 00:00:00 INFLUENZA VACCINE (#1) [code = INFLUENZA VACCINE (#1)] [facility] Scheduled Test 2015-12-14 00:00:00 IMM Pneumococcal A ge 65 and Up [code = IMM Pneumococcal Age 65 and Up] [facility] Scheduled Test 2015-03-13 00:00:00 MEDICARE ANNUAL WE LLNESS (YEAR 2 or FIRST YEAR if no IPPE) [code = MEDICARE ANNUAL WELLNESS (YEAR 2 or FIRST YEAR if no IPPE)] [facility] Scheduled Test 2015-01-10 00:00:00 Breast Cancer Scrn (Yearly) [code = Breast Cancer Scrn (Yearly)] [facility] Scheduled Test 2000 00:00:00 Screening for gilma gnant neoplasm of colon (procedure) [code = 070814879] [facility] Scheduled Test 1950 00:00:00 Screening for gilma gnant neoplasm of breast (procedure) [code = 472486808] [facility] Encounters Start Date/Time End Date/Time Encounter Type Admission Type Attendi [facility] Care Department Encounter ID Source 2018-11-05 22:58:00 2018-11-11 16:35:00 Discharged Inpatient 1 JOSEPHINE KAUFFMAN [facility] [id number] [facility] Results Test Description Test Time Test Comments Results Result Comments Source CT ABDOMEN/PELVIS W 2019-10-12 16:57:00 [facility] [address] [address] Patient Name: JOSEP CRUZ MR #: [id number] : 1950 Age/Sex: 68/F Req #: [id number] Adm Physician: Ordered by: Josh Escalera MD Report #: [id number] Location: ER Room/Bed: Procedure: [id number] CT/CT ABDOMEN/PELVIS W Exam Date: 10/12/19 Exam Time: 1632 REPORT STATUS: Signed CT of the abdomen and pelvis with contrast TECHNIQUE: CT of the abdomen and pelvis WITH intravenous contrast and WITHOUT oral contrast. Dose modulation, iterative reconstruction, and/or weight-based adjustment of the mA/kV was utilized to reduce the rad iation dose to as low as reasonably achievable. IV CONTRAST: 100 mL of Isovue-370 ORAL CONTRAST: None RADIATION DOSE: Total DLP: 510 mGy*cm COMPLICATIONS: None INDICATION: Y abd pain, lower, bilateral [id number]. COMPARISON: None. FINDINGS: LOWER THORAX: Severe emphysematous changes of the lung bases are noted.. HEPATOBILIARY: No suspicious solid hepatic lesions. There are a few scattered subcentimeter hypodense lesions, too small to accurately characterize. Gallbladder is unremarkable. No biliary ductal dilatation. SPLEEN: Spleen is enlarged. There are innumerable hypodense lesions scattered throughout the entire spleen some of which do measure heterogeneous enhancement for example anteriorly on image #13 measuring up to 1.7 cm. The largest hypodense lesion is within the posterior/inferior aspect measuring up to 2.2 cm. PANCREAS: No focal masses or ductal dilatation. ADRENALS: No adrenal nodules. KIDNEYS/URETERS: No hydronephrosis, stones, or masses. PELVIC ORGANS/BLADDER: Urinary bladder is unremarkable. Uterus is surgically absent. Pelvic phleboliths are noted. PERITONEUM/RETROPERITONEUM: No free air or fluid. Fat-containing umbilical hernia is noted. LYMPH NODES: No lymphadenopathy. VESSELS: Negative for abdominal aortic aneurysm. Moderate to severe circumferential atherosclerotic calcifications of the infrarenal abdominal aorta are noted. GI TRACT: Lack of oral contrast limits evaluation. Small hiatal hernia is noted. Stomach is decompressed limiting evaluation. Portions of the colon are decompressed limiting evaluation. Question wall thickening versus artifact of under distention within the proximal colon (axial images 38 through 59). Numerous diverticula are noted of the sigmoid and distal descending colon. A few diverticula of the ascending colon are also noted. No definite surrounding inflammatory changes. Assessment for wall thickening is limited due to underdistended state. Negative for obstruction. No surrounding inflammatory changes are identified. BONES AND SOFT TISSUES: Osseous structures are diffusely demineralized. Mild compression deformity of the superior endplate of L1 is noted. Focal advanced degenerative changes noted at L5-S1. No suspicious lytic or blastic lesion is identified. Soft tissues are unremarkable. IMPRESSION: 1. Negative for acute abdominopelvic process 2. Stable innumerable hypodensities of the enlarged spleen, a few which demonstrate heterogeneous enhancement. Findings are nonspecific, underlying malignancy such as lymphoma is difficult to exclude. 3. Negative for bowel obstruction. Question mild wall thickening versus artifact of under distention within the proximal colon. Mild/subtle colitis is difficult to exclude. 4. Diffuse colonic diverticulosis. No surrounding inflammatory changes are identified. 5. Scattered hypodensities within the liver are too small to accurately characterize and similar to prior exam. Statistically these represent cysts. 6. Severe emphysematous changes of the lung bases. Signed by: Dorcas Henry MD on 10/12/2019 5:09 PM Dictated By: DORCAS HENRY MD 08 Transcribed By: ALMA ROSA on 10/12/191708 COPY TO: JOSH ESCALERA MD Blood Culture 2018-11-11 06:39:00 Test Item Blood Culture (test code = 50217095) NO GROWTH AFTER 5 DAYS, FINAL REPORT [facility] [id number] 15:28:00 [facility] [address] [address] Patient Name: JOSEP CRUZ MR #: [id number] : 1950 Age/Sex: 67/F Req #: [id number] Adm Physician: JOSEPHINE KAUFFMAN MD Ordered by: GASTON DIAL MD Report #: [id number] Location: MED/SURG3 Room/Bed: [facility] Procedure: [id number] C T/CT CHEST WO Exam Date: 11/09/18 [...] 3:35 PM Dictated By: TIKA SHARPE MD 1535 Transcribed By: ALMA ROSA on 11/09/18 1535 COPY TO: GASTON DIAL MD Creatine Kinase [id number] 11:43:00* Test Item Value Reference Range Interpretation Comments Creatine Kinase MB (test code = 20858-3) 4.20 0-5.0 [facility] [id number] 11:43:00* Test Item Value Reference Range Interpretation Comments Troponin I (test code = DDG3020) 0.020 0-0.300 [facility] CenterCreatine [id number] 11:39:00* Test Item Value Reference Range Interpretation Comments Creatine Kinase (test code = 2157-6) 63 29-168 [facility] CenterDifferential Total Cells Counted 2018-11-06 07:31:00* Test Item Value Reference Range Interpretation Comments Differential Total Cells Counted (test code = Differen tial Total Cells Counted) 100 [facility]Neutrophils % (Manual)2018-11-06 07:31:00 * Test Item Value Reference Range Interpretation Comments Neutrophils % (Manual) (test code = 94674-0) 94 40-74 H [facility] CenterBand Neutrophils %2018-11-06 07:31:00* Test Item Value Reference Range Interpretation Comments Band Neutrophils % (test code = 764-1) 1 [facility] CenterLymphocytes % (Manual)2018-11-06 07:31:00 * Test Item Value Reference Range Interpretation Comments Lymphocytes % (Manual) (test code = 737-7) 4 19-48 L [facility] CenterMonocytes % (Manual)2018-11-06 07:31:00* Test Item Value Reference Range Interpretation Comments Monocytes % (Manual) (test code = 744-3) 1 3.4-9.0 L [facility] CenterPlatelet [id number] 07:31:00* Test Item Value Reference Range Interpretation Comments Platelet Estimate (test code = 84728-0) ADEQUATE [facility] CenterPlatelet Morphology [id number] 07:31:00* Test Item Value Reference Range Interpretation Comments Platelet Morphology Comment (test code = 48640-8) NORMAL [facility] CenterRed Cell Morphology [id number] 07:31:00* Test Item Value Reference Range Interpretation Comments Red Cell Morphology Comment (test code = 6742-1) NORMAL [facility] [id number] 07:01:00* Test Item Value Reference Range Interpretation Comments Sodium Level (test code = 2951-2) 139 136-145 [facility] CenterPotassium [id number] 07:01:00* Test Item Value Reference Range Interpretation Comments Potassium Level (test code = 2823-3) 5.0 3.5-5.1 [facility] CenterChloride Fsozw0028-28-19 07:01:00* Test Item Value Reference Range Interpretation Comments Chloride Level (test code = 2075-0) 105 98-107 [facility] CenterCarbon Dioxide [id number] 07:01:00* Test Item Value Reference Range Interpretation Comments Carbon Dioxide Level (test code = 2028-9) 27 22-29 [facility] CenterAnion [id number] 07:01:00* Test Item Value Reference Range Interpretation Comments Anion Gap (test code = 49450-0) 12.0 8-16 [facility] CenterBlood Urea [id number] 07:01:00* Test Item Value Reference Range Interpretation Comments Blood Urea Nitrogen (test code = 3094-0) 26 7-26 [facility] CenterCreatinine2019-09-28 07:01:00* Test Item Value Reference Range Interpretation Comments Creatinine (test code = 2160-0) 0.73 0.57-1.11 [facility] CenterBUN/Creatinine [id number] 07:01:00* Test Item Value Reference Range Interpretation Comments BUN/Creatinine Ratio (test code = 3097-3) 36 6-25 H [facility] CenterEstimat Glomerular Filtration Rate 2018-11-06 07:01:00* Test Item Value Reference Range Interpretation Comments Estimat Glomerular Filtration Rate (test code = 103459222) > 60 >60 Ranges were taken from the National Kidney Disease Education Program and the [facility] literature.Reference ranges:60 or greater: Uznmct33-29 ( for 3 consecutive months): Chronic kidney disease 15 or less: Kidney failureGrace Medical CenterGlucose [id number] 07:01:00* Test Item Value Reference Range Interpretation Comments Glucose Level (test code = WAR9198) 125 74-118 H [facility] CenterCalcium [id number] 07:01:00* Test Item Value Reference Range Interpretation Comments Calcium Level (test code = 87521-5) 8.9 8.4-10.2 [facility] CenterWhite Blood [id number] 06:50:00* Test Item Value Reference Range Interpretation Comments White Blood Count (test code = 6690-2) 8.86 4.8-10.8 [facility] CenterRed Blood [id number] 06:50:00* Test Item Value Reference Range Interpretation Comments Red Blood Count (test code = 789-8) 4.49 3.6-5.1 [facility] CenterHemoglobin2019-09-28 06:50:00* Test Item Value Reference Range Interpretation Comments Hemoglobin (test code = 43999-4) 13.1 12.0-16.0 [facility] CenterHematocrit2019-09-28 06:50:00* Test Item Value Reference Range Interpretation Comments Hematocrit (test code = 4544-3) 40.4 34.2-44.1 [facility] CenterMean Corpuscular [id number] 06:50:00* Test Item Value Reference Range Interpretation Comments Mean Corpuscular Volume (test code = 787-2) 90.0 81-99 [facility] CenterMean Corpuscular Jlrlcpyiwh2492-03-93 06:50:00* Test Item Value Reference Range Interpretation Comments Mean Corpuscular Hemoglobin (test code = 785-6) 29.2 28-32 [facility] CenterMean Corpuscular Hemoglobin Concent 2018-11-06 06:50:00* Test Item Value Reference Range Interpretation Comments Mean Corpuscular Hemoglobin Concent (test code = 786-4) 32.4 31-35 [facility] CenterRed Cell Distribution [id number] 06:50:00* Test Item Value Reference Range Interpretation Comments Red Cell Distribution Width (test code = 71352-1) 13.7 11.7 -14.4 [facility] CenterPlatelet Bgisz6266-45-02 06:50:00* Test Item Value Reference Range Interpretation Comments Platelet Count (test code = 777-3) 160 140-360 [facility] CenterNeutrophils (%) (Auto)2018-11-06 06:50:00 * Test Item Value Reference Range Interpretation Comments Neutrophils (%) (Auto) (test code = 93767-0) 92.3 38.7-80.0 H [facility] CenterLymphocytes (%) (Auto)2018-11-06 06:50:00 * Test Item Value Reference Range Interpretation Comments Lymphocytes (%) (Auto) (test code = 736-9) 4.5 18.0-39.1 L [facility] (Auto)2018-11-06 06:50:00* Test Item Value Reference Range Interpretation Comments Monocytes (%) (Auto) (test code = 5905-5) 1.2 4.4-11.3 L [facility]Eosinophils (%) (Auto)2018-11-06 06:50:00 * Test Item Value Reference Range Interpretation Comments Eosinophils (%) (Auto) (test code = 713-8) 0.0 0.0-6.0 [facility] (%) (Auto)2018-11-06 06:50:00* Test Item Value Reference Range Interpretation Comments Basophils (%) (Auto) (test code = 706-2) 0.2 0.0-1.0 [facility] CenterIM [facility]ULOCYTES %2018-11-06 06:50:00* Test Item Value Reference Range Interpretation Comments IM GRANULOCYTES % (test code = IM GRANULOCYTES %) 1.8 0.0- 1.0 H [facility] CenterNeutrophils # (Auto)2018-11-06 06:50:00* Test Item Value Reference Range Interpretation Comments Neutrophils # (Auto) (test code = 751-8) 8.2 2.1-6.9 H [facility] CenterLymphocytes # (Auto)2018-11-06 06:50:00* Test Item Value Reference Range Interpretation Comments Lymphocytes # (Auto) (test code = 58948-0) 0.4 1.0-3.2 L [facility]Monocytes # (Auto)2018-11-06 06:50:00* Test Item Value Reference Range Interpretation Comments Monocytes # (Auto) (test code = 742-7) 0.1 0.2-0.8 L [facility] CenterEosinophils # (Auto)2018-11-06 06:50:00* Test Item Value Reference Range Interpretation Comments Eosinophils # (Auto) (test code = 711-2) 0.0 0.0-0.4 [facility]Basophils # (Auto)2018-11-06 06:50:00* Test Item Value Reference Range Interpretation Comments Basophils # (Auto) (test code = 704-7) 0.0 0.0-0.1 [facility] CenterAbsolute Immature Granulocyte (auto 2018-11-06 06:50:00* Test Item Value Reference Range Interpretation Comments Absolute Immature Granulocyte (auto (blaise t code = Absolute Immature Granulocyte (auto) 0.16 0-0.1 H [facility] CenterUrine [id number] 02:50:00* Test Item Value Reference Range Interpretation Comments Urine WBC (test code = 5821-4) 0-5 0-5 [facility] [id number] 02:50:00* Test Item Value Reference Range Interpretation Comments Urine RBC (test code = 29722-4) 6-10 0-5 H [facility] [id number] 02:50:00* Test Item Value Reference Range Interpretation Comments Urine Bacteria (test code = 64073-9) MODERATE NONE [facility] CenterU[facility] Epithelial [id number] 02:50:00 * Test Item Value Reference Range Interpretation Comments Urine Epithelial Cells (test code = 53276-0) MODERATE NONE [facility] [id number] 02:23:00* Test Item Value Reference Range Interpretation Comments Urine Color (test code = 5778-6) YELLOW YELLOW [facility] [id number] 02:23:00* Test Item Value Reference Range Interpretation Comments Urine Clarity (test code = 34741-7) CLEAR CLEAR [facility] Specific [id number] 02:23:00 * Test Item Value Reference Range Interpretation Comments Urine Specific [place] (test code = 5811-5) >=1.030 1.010-1.02 5 [facility] [id number] 02:23:00* Test Item Value Reference Range Interpretation Comments Urine pH (test code = 76581-2) 5.5 5-7 [facility] Leukocyte [id number] 02:23:00* Test Item Value Reference Range Interpretation Comments Urine Leukocyte Esterase (test code = 67913-6) NEGATIVE NEGATIV E [facility] [id number] 02:23:00* Test Item Value Reference Range Interpretation Comments Urine Nitrite (test code = 83951-1) NEGATIVE NEGATIVE [facility] [id number] 02:23:00* Test Item Value Reference Range Interpretation Comments Urine Protein (test code = 80504-9) TRACE NEGATIVE H [facility] CenterU[facility] Glucose (UA)2018-11-06 02:23:00* Test Item Value Reference Range Interpretation Comments Urine Glucose (UA) (test code = 02107-7) NEGATIVE NEGATIVE [facility] [id number] 02:23:00* Test Item Value Reference Range Interpretation Comments Urine Ketones (test code = 28820-5) NEGATIVE NEGATIVE [facility] Tulfhbsdkhrb1224-45-72 02:23:00* Test Item Value Reference Range Interpretation Comments Urine Urobilinogen (test code = 58394-4) 0.2 0.2-1 [facility] Fhwpkyhjl0989-47-92 02:23:00* Test Item Value Reference Range Interpretation Comments Urine Bilirubin (test code = 1977-8) NEGATIVE NEGATIVE [facility] Center[facility] [id number] 02:23:00* Test Item Value Reference Range Interpretation Comments Urine Blood (test code = 17336-6) 1+ NEGATIVE [facility] CenterB-Type Natriuretic Ramrexj9660-45-67 20:17:00* Test Item Value Reference Range Interpretation Comments B-Type Natriuretic Peptide (test code = 76327-2) 23.3 0-100 [facility] CenterInfluenza Virus Types A,B Antigen 2018-11-05 20:08:00* Test Item Value Reference Range Interpretation Comments Influenza Virus Types A,B Antigen (test code = 33905-4) NEGATIVE NEGATIVE [facility] CenterCHEST SINGLE (PORTABLE)2018-11-05 20:03:00 [place] [address] Patient Name: JOSEP CRUZ MR #: [id number] : 1950 Age/Sex: 67/F Req #: [id number] Adm Physician: Ordered by: ALEJANDRA CRISOSTOMO MD Report #: [id number] Location: ER Room/Bed: Procedure: [id number] DX /CHEST SINGLE (PORTABLE) Exam Date: 11/05/18 [...] No fo jordan consolidative pneumonia. Signed by: Dr. Benjamin Wyatt D.O., M.M.M. on 11/05/2018 8:08 PM Dictated By: BENJAMIN WYATT DO Electronically S igned By: BENJAMIN WYATT DO on 11/05/182007 Transcribed By: ALMA ROSA on 11/05/18 2 008 COPY TO: ALEJANDRA CRISOSTOMO MD Total [id number] 19:59:00* Test Item Value Reference Range Interpretation Comments Total Bilirubin (test code = 1975-2) 1.2 0.2-1.2 [facility] CenterAspartate Amino Transf (AST/SGOT) 2018-11-05 19:59:00* Test Item Value Reference Range Interpretation Comments Aspartate Amino Transf (AST/SGOT) (test code = Aspartate Amino Transf (AST/SGOT)) 28 5-34 [facility] CenterAlanine Aminotransferase (ALT/SGPT) 2018-11-05 19:59:00* Test Item Value Reference Range Interpretation Comments Alanine Aminotransferase (ALT/SGPT) (test code = 1742-6) 27 0-55 [facility] CenterTotal [id number] 19:59:00* Test Item Value Reference Range Interpretation Comments Total Protein (test code = 2885-2) 7.4 6.5-8.1 [facility] CenterAlbumin2019-09-27 19:59:00* Test Item Value Reference Range Interpretation Comments Albumin (test code = 1751-7) 4.3 3.5-5.0 [facility] CenterGlobulin2019-09-27 19:59:00* Test Item Value Reference Range Interpretation Comments Globulin (test code = 40249-1) 3.1 2.3-3.5 [facility] CenterAlbumin/Globulin [id number] 19:59:00 * Test Item Value Reference Range Interpretation Comments Albumin/Globulin Ratio (test code = 1759-0) 1.4 0.8-2.0 [facility] CenterAlkaline Ifejfqmitxx1826-84-81 19:59:00* Test Item Value Reference Range Interpretation Comments Alkaline Phosphatase (test code = 6768-6) 97 40-150 [facility] CenterLipase2019-09-27 19:59:00* Test Item Value Reference Range Interpretation Comments Lipase (test code = 3040-3) 6 8-78 L [facility] CenterLIPASE2018-10-29 16:31:00* Test Item Value Reference Range Interpretation Comments LIPASE (BEAKER) (test code = 749) 6 U/L 8-78 L HEPATIC FUNCTION [id number] 16:31:00* Test Item Value Reference Range Interpretation [...] code = 347) 18 U/L 6-55 TISSUE [id number] 10:51:00Surgical Pathology Report Case: [id number] Authorizing Provider: Ricardo Ireland Collected: 12/03/2017 0929 [...] see comment Signing Pathologist Direct Phone Line: [phone] signed by Chika Bradford MD on 12/07/2017 at 10:51 AMEndoscopic correlation is recommended to determine completeness of excision of the polyp. 00207Kvthamxsa colon polypRight/ascending colon polypReceived in formalin labeled [...] No cytologic atypia or invasive adenocarcinoma is seen.[id number] 06:13:00 * Test Item Value Reference Range Interpretation Comments MAGNESIUM (BEAKER) (test code = 627) 1.9 mg/dL 1.6-2.6 BASIC METABOLIC [id number] 06:13:00* Test Item Value Reference Range Interpretation [...] DIALYSIS PATIENTS. CBC W/PLT COUNT & AUTO [id number] 05:43:00* Test Item Value Reference Range Interpretation [...] (test code = 2801) 1 % 0-1 [id number] 07:07:00* Test Item Value Reference Range Interpretation Comments MAGNESIUM (BEAKER) (test code = 627) 1.8 mg/dL 1.6-2.6 Specimen slightly hemolyzed BASIC METABOLIC [id number] 07:07:00* Test Item Value Reference Range Interpretation [...] DIALYSIS PATIENTS. CBC W/PLT COUNT & AUTO [id number] 06:56:00* Test Item Value Reference Range Interpretation [...] % 0-1 CBC W/PLT COUNT & AUTO [id number] 07:18:00* Test Item Value Reference Range Interpretation [...] (test code = 2801) 1 % 0-1 [id number] 07:14:00* Test Item Value Reference Range Interpretation Comments MAGNESIUM (BEAKER) (test code = 627) 1.8 mg/dL 1.6-2.6 BASIC METABOLIC [id number] 07:14:00* Test Item Value Reference Range Interpretation [...] IS NOT APPLICABLE FOR DIALYSIS PATIENTS. CT, [id number] 03:16:00Oral and rectal contrastFINAL REPORT EXAMINATION: CT [...] MDReport Verified Date/Time: 12/05/2017 03:16:22 Reading Location: [address] [facility] Reading Room Electronically signed by: OLGA TAY M.D. on 8 03:16 AM RAD, ABDOMEN/KUB, 1 VIEW [id number] 16:43:00Reason for exam:->abd painShould this be performed [...] MDReport Verified Date/Time: 12/04/2017 16:43:26 Reading Location: [address] Consult Reading Room Electronically signed by: GERRY VILLARREAL M.D. on 04:43 PM CBC W/PLT COUNT & AUTO [id number] 06:41:00* Test Item Value Reference Range Interpretation [...] = 2801) 1 % 0-1 BASIC METABOLIC [id number] 06:12:00* Test Item Value Reference Range Interpretation [...]
[2019-10-12 18:54] LABS: CREATINE KINASE MB 2.7 ng/mL (0-5.0)
[2019-10-12] MEDS ORDERED: SODIUM CHLORIDE 0.9% 50ML 50 ML ONE (18:57)
[2019-10-12] MEDS ORDERED: IOPAMIDOL 370 MG/ML 200 ML INFUS..BTL INJ ONE (18:58)
--- NOTE | 2019-10-12 19:29 | NUR ---
1st attempt to give report, placed on hold
--- NOTE | 2019-10-12 19:37 | NUR ---
report given to Madan JASON
[2019-10-12] MEDS ORDERED: BENZONATATE 100 MG CAP PO PRN (20:30)
[2019-10-12] MEDS ORDERED: ALBUTEROL SULFATE HFA 8GM INHALATION AEROSOL INH SCH (20:30)
[2019-10-12] MEDS ORDERED: CLONIDINE HCL 0.1 MG TAB PO PRN (20:30)
[2019-10-12 20:50] VITALS: BP 146/92
[2019-10-12] MEDS: TIZANIDINE HCL 4 MG TAB PO SCH (21:30)
[2019-10-12] MEDS: FAMOTIDINE 20 MG TAB PO SCH (21:30)
[2019-10-12] MEDS: MONTELUKAST SODIUM 10 MG TAB PO SCH (21:30)
[2019-10-12] MEDS: METOPROLOL TARTRATE 25 MG TAB PO SCH (21:30)
[2019-10-12] MEDS: GABAPENTIN 300 MG CAP PO SCH (21:30)
[2019-10-12] MEDS: SODIUM CHLORIDE 0.9% 1000ML 1,000 ML IV SCH (22:00)
[2019-10-12] MEDS ORDERED: PREDNISONE5 M1 PO (22:05)
[2019-10-12 22:06] VITALS: BP_SYST 142; BP_SYST 146; BP_DIAS 92; BP_DIAS 96
--- NOTE | 2019-10-12 22:06 | NUR ---
Pt admitted to room 210 via WC from home. Pt alert and oriented to name, hospital, time, and diagnosis: Diarrheal Illness, tachycardia, and dehydration. Pt c/o loose stools x1 week and vomiting x2 days, dry heaving today, Pt denies loose stools today. Pt c/o moderate chronic back pain, repositioned in bed. Pt denies dysuria, urine yellow and clear. Pt lungs CTA, denies SOB or dyspnea. Pt oriented to room, transition of care folder, bed low and locked. Informed to call for assistance d/t weakness x2 days. Pt verbalized understanding.
[2019-10-13] VITALS (7 sets, daily range): BP systolic 85–134; BP diastolic 56–90
[2019-10-13 05:44] LABS: BASOPHILS # (AUTO) 0.1 (0.0-0.1); BASOPHILS % 0.7 % (0.0-1.0); EOSINOPHILS # (AUTO) 0.2 (0.0-0.4); EOSINOPHILS % 2.6 % (0.0-6.0); HEMATOCRIT 39.5 % (34.2-44.1); HEMOGLOBIN 12.4 g/dL (12.0-16.0); LYMPHOCYTES # (AUTO) 0.8 (1.0-3.2); MEAN CORPUSCULAR HEMOGLOBIN 27.7 pg (28-32); MEAN CORPUSCULAR HGB CONC 31.4 g/dL (31-35); MEAN CORPUSCULAR VOLUME 88.2 fL (81-99); MONOCYTES # (AUTO) 0.7 (0.2-0.8); MONOCYTES % 8.3 % (4.4-11.3); NEUTROPHILS # (AUTO) 6.5 (2.1-6.9); NEUTROPHILS % 77.4 % (38.7-80.0); PLATELET COUNT 140 x10e3/uL (140-360); RED BLOOD COUNT 4.48 x10e6/uL (3.6-5.1); RED CELL DISTRIBUTION WIDTH 13.6 % (11.7-14.4)
[2019-10-13 06:06] LABS: ALANINE AMINOTRANSFERASE 20 IU/L (0-55); ALBUMIN/GLOBULIN RATIO 2.2 (0.8-2.0); ALKALINE PHOSPHATASE 69 IU/L (40-150); ANION GAP 15.4 mmol/L (8-16); BLOOD UREA NITROGEN 14 mg/dL (7-26); BUN/CREATININE RATIO 20 (6-25); CARBON DIOXIDE 23 mmol/L (22-29); CHLORIDE 105 mmol/L (98-107); CREATININE, SERUM 0.69 mg/dL (0.57-1.11); EST GLOMERULAR FILTRATION RATE > 60 ML/MIN (60-); GLUCOSE 72 mg/dL (74-118); POTASSIUM 3.4 mmol/L (3.5-5.1); SODIUM 140 mmol/L (136-145)
[2019-10-13 06:38] LABS: CREATINE KINASE MB 2.2 ng/mL (0-5.0)
[2019-10-13] MEDS: SALMETEROL/FLUTICASONE 250/50 INH SCH ×2 (06:51→19:50)
[2019-10-13] MEDS: TIOTROPIUM 18 MCG INH POWDER INH SCH (06:51)
[2019-10-13] MEDS ORDERED: PANTOPRAZOLE SOD 40 MG TABEC PO SCH (07:30)
[2019-10-13] MEDS: LORATADINE/PSEUDOEPHEDRINE 24 HR SR TAB PO SCH (08:21)
[2019-10-13] MEDS: GABAPENTIN 300 MG CAP PO SCH ×3 (08:22→21:00)
[2019-10-13] MEDS: TIZANIDINE HCL 4 MG TAB PO SCH ×3 (08:22→21:00)
[2019-10-13] MEDS: PREDNISONE 10 MG TAB PO SCH (08:22)
[2019-10-13] MEDS: METOPROLOL TARTRATE 25 MG TAB PO SCH ×2 (08:22→21:00)
[2019-10-13] MEDS: SERTRALINE HCL 100 MG TAB PO SCH (08:23)
[2019-10-13 08:26] LABS: PLATELET ESTIMATE ADEQUATE; PLATELET MORPHOLOGY COMMENT NORMAL
[2019-10-13] MEDS: SODIUM CHLORIDE 0.9% 1000ML 1,000 ML IV SCH ×2 (08:27→16:04)
[2019-10-13 12:51] LABS: CREATINE KINASE MB 2.3 ng/mL (0-5.0)
[2019-10-13] MEDS: MORPHINE SULFATE INJ 4 MG/ML INJ 1ML IV PRN (13:40)
[2019-10-13] MEDS ORDERED: POTASSIUM BICARBONATE/CIT AC 20 MEQ TABLET.EFF PO ONE (15:00)
--- NOTE | 2019-10-13 15:54 | NUR ---
Nutrition Screen Note RD Recommendation for Physician: - Recommend advancing to regular diet as appropriate - If PO intake is <50% of meals, offer a nutrition supplement (Ensure clear while on clears or Ensure Enlive when diet is advanced) Plan of Care: RD following, monitoring for tolerance and adequacy Nutrition reason for involvement: Nutrition Risk Trigger Primary Diagnose(s): diarrheal illness, dehydration, tachycardia PMH: COPD, history of respiratory failure in the past and intubation, allergic rhinitis, anxiety, and depression. Ht: 62 in Wt: 110 lb BMI: 19.6 kg/m2 IBW:[address] Assessment: (10/13/19) Chart reviewed. Labs and meds reviewed. Pt is a 68 year old female admitted with diarrheal illness, dehydration, and tachycardia. Pt reports she is tolerating the liquid diet. Pt stated her meal intake varies and that she snacks throughout the day. No weight loss reported and pt stated she usually weighs 110 lbs. No chewing/swallowing issues noted. Will continue to monitor Current Diet: clear liquid diet Malnutrition Evaluation (10/13/19) The patient does not meet criteria for a specified degree of malnutrition at this time. Will re-evaluate at follow-up as appropriate. Diet Education Needs Assessment: Diet education not indicated. Nutrition Care Level: low Signed: Nany Rosado, RD, LD
--- NOTE | 2019-10-13 16:00 | History and Physical ---
PRIMARY CARE PHYSICIAN: Dr. Anand at [facility]. CHIEF COMPLAINT: Diarrhea x5 days. Nausea and vomiting x1 day. HISTORY OF PRESENT ILLNESS: This is a 68-year-old female with past medical history of COPD and depression, presented to the ER with complaints of diarrhea x5 days and nausea and vomiting that started yesterday. She reports has been having watery stool, not improved with Pepto-Bismol or Imodium. She reports diffuse abdominal pain. Yesterday, she woke up and has been having dry heaves. She has not been able to eat for the past few days. She denies any hematemesis, melena, fever, chills, chest pain, or cough. CT abdomen and pelvis showed negative acute abdominal process with severe emphysematous changes and diffuse colonic diverticulosis. PAST MEDICAL HISTORY: 1. COPD. 2. Depression/anxiety. PAST SURGICAL HISTORY: 1. She reports right shoulder surgery, left wrist. 2. Hysterectomy. 3. Colon fistula repair. FAMILY MEDICAL HISTORY: She reports both mother and father of cancer. SOCIAL HISTORY: She quit smoking years ago. She denies any alcohol or illicit drug use. She lives with her children. ALLERGIES: NO KNOWN DRUG ALLERGIES. REVIEW OF SYSTEMS: Twelve-system reviewed and negative except as reported in HPI. PHYSICAL EXAMINATION: VITAL SIGNS: Temperature 97.9, pulse 75, respirations 17, blood pressure 99/57, pulse ox is 100% on 2 L of nasal cannula. GENERAL: Anxious. HEENT: Normocephalic, atraumatic. NECK: Supple. LUNGS: With decreased breath sound. CARDIOVASCULAR: Regular rate and rhythm. GI: Soft with mild tenderness in the umbilical area. NEUROLOGIC: Alert, awake, and oriented x3. MUSCULOSKELETAL: Moves all extremities. No edema. No edema. SKIN: Dry and intact. PSYCH: Anxious. LABORATORY DATA: WBC 11.96, hemoglobin 14.1, and platelet 181. Sodium 140, potassium 3.4, creatinine 0.69, BUN is 14, blood glucose 72, and magnesium 1.9. Troponin I x3 negative. Total protein 5.8, albumin 4.0, globulin 1.8. Urine nitrite is positive, leukocytes small. Coronavirus PCR is pending. IMAGING: Negative for abdominal and pelvic process, negative for bowel obstruction, hypodensities with enlarged spleen. A few nonspecific hypodensities in the spleen and liver. Severe emphysematous changes of the lungs. IMPRESSION: 1. Intractable nausea, vomiting, and diarrhea. CT abdomen insignificant. We will check stool for Clostridium difficile. We will consult GI as she is still having the diarrhea. 2. Hypokalemia, replaced. 3. Chronic obstructive pulmonary disease. We will resume home medication. 4. Chronic back pain. Resume pain medication as needed. 5. Depression. Continue Zoloft. 6. Deep venous thrombosis prophylaxis. Lovenox subcu. PLAN: We will collect stool for C diff. Consult GI for further evaluation. Dictated by RIANNA Cruz Valentín Tineo MD MY/MODL /[id number]
[2019-10-13] MEDS: FAMOTIDINE 20 MG TAB PO SCH (21:00)
[2019-10-13] MEDS: MONTELUKAST SODIUM 10 MG TAB PO SCH (21:00)
[2019-10-14] VITALS: BP 89/52
--- NOTE | 2019-10-14 00:20 | NUR ---
Rounds with Dr. Nelsy Kamara, will order IV Protonix, Bentyl, and increase diet to Full Liquid. Pt denies pain at this time.
[2019-10-14 00:30] VITALS: BP 104/71
[2019-10-14] MEDS ORDERED: DICYCLOMINE HCL 10 MG CAP PO STA (00:37)
[2019-10-14] MEDS: PANTOPRAZOLE 40 MG 10ML VIAL IV SCH ×2 (01:00→13:10)
[2019-10-14 04:00] VITALS: BP 118/72
[2019-10-14] MEDS: SODIUM CHLORIDE 0.9% 1000ML 1,000 ML IV SCH ×2 (05:36→10:14)
[2019-10-14 06:28] LABS: BASOPHILS % 0.4 % (0.0-1.0); EOSINOPHILS # (AUTO) 0.2 (0.0-0.4); EOSINOPHILS % 3.9 % (0.0-6.0); HEMATOCRIT 35.6 % (34.2-44.1); HEMOGLOBIN 11.5 g/dL (12.0-16.0); LYMPHOCYTES # (AUTO) 0.8 (1.0-3.2); LYMPHOCYTES % 15.2 % (18.0-39.1); MEAN CORPUSCULAR HEMOGLOBIN 29.6 pg (28-32); MEAN CORPUSCULAR HGB CONC 32.3 g/dL (31-35); MEAN CORPUSCULAR VOLUME 91.8 fL (81-99); MONOCYTES # (AUTO) 0.4 (0.2-0.8); MONOCYTES % 7.7 % (4.4-11.3); NEUTROPHILS # (AUTO) 3.6 (2.1-6.9); NEUTROPHILS % 70.6 % (38.7-80.0); PLATELET COUNT 125 x10e3/uL (140-360); RED BLOOD COUNT 3.88 x10e6/uL (3.6-5.1)
[2019-10-14 06:45] LABS: ALANINE AMINOTRANSFERASE 19 IU/L (0-55); ALBUMIN 3.7 g/dL (3.5-5.0); ALBUMIN/GLOBULIN RATIO 2.3 (0.8-2.0); ALKALINE PHOSPHATASE 61 IU/L (40-150); ANION GAP 13.6 mmol/L (8-16); BLOOD UREA NITROGEN 13 mg/dL (7-26); BUN/CREATININE RATIO 19 (6-25); CARBON DIOXIDE 24 mmol/L (22-29); CHLORIDE 107 mmol/L (98-107); CREATININE, SERUM 0.68 mg/dL (0.57-1.11); EST GLOMERULAR FILTRATION RATE > 60 ML/MIN (60-); GLUCOSE 72 mg/dL (74-118); POTASSIUM 3.6 mmol/L (3.5-5.1); SODIUM 141 mmol/L (136-145)
[2019-10-14] MEDS ORDERED: ALBUTEROL/IPRATROPIUM 3 ML NEB NEB PRN (07:00)
[2019-10-14] MEDS: TIOTROPIUM 18 MCG INH POWDER INH SCH (07:20)
[2019-10-14] MEDS: SALMETEROL/FLUTICASONE 250/50 INH SCH (07:20)
[2019-10-14 07:47] VITALS: BP 121/72
[2019-10-14] MEDS: PREDNISONE 10 MG TAB PO SCH (09:20)
[2019-10-14] MEDS: SERTRALINE HCL 100 MG TAB PO SCH (09:20)
[2019-10-14] MEDS: MORPHINE SULFATE INJ 4 MG/ML INJ 1ML IV PRN (09:20)
[2019-10-14] MEDS: GABAPENTIN 300 MG CAP PO SCH ×2 (09:20→14:22)
[2019-10-14] MEDS: TIZANIDINE HCL 4 MG TAB PO SCH ×2 (09:20→14:22)
[2019-10-14] MEDS: METOPROLOL TARTRATE 25 MG TAB PO SCH (09:21)
[2019-10-14] MEDS: DICYCLOMINE HCL 10 MG CAP PO SCH ×2 (09:21→14:22)
[2019-10-14] MEDS: LORATADINE/PSEUDOEPHEDRINE 24 HR SR TAB PO SCH (09:21)
[2019-10-14 11:28] VITALS: BP 104/63
--- NOTE | 2019-10-14 11:46 | NUR ---
ok to remove magalys for MRI
[2019-10-14] MEDS ORDERED: DICYCLOMINE HCL10 MG PO (14:24)
[2019-10-14 15:41] VITALS: BP 106/80
--- NOTE | 2019-10-15 07:41 | Discharge Summary ---
PRIMARY CARE PHYSICIAN: Dr. Anand at [facility]. FINAL DISCHARGE DIAGNOSES: 1. Intractable nausea, vomiting, and diarrhea. 2. Hypokalemia. 3. COPD. 4. Chronic back pain. 5. Depression. CONSULTANTS: Dr. Kamara with GI. PROCEDURES: None. HISTORY: Per HPI. HOSPITAL COURSE: This is a 68-year-old female, who presented to the ER with complaints of nausea, vomiting, and diarrhea for the past five days. CT abdomen and pelvis was negative for acute process, obstruction or colitis. She was started on IV fluid hydration. Stool sample was sent for C diff, which was negative. GI was consulted and was started on PPI, IV and Bentyl. She was resumed on her home medication and was started on clear liquids and advanced to GI soft as tolerated. Currently, diarrhea has stopped and has been tolerating her diet. No abdominal pain, will discharge home to follow up with GI in 1 to 2 weeks. PHYSICAL EXAMINATION: VITAL SIGNS: Temperature 98.3, pulse is 82, respirations 21, blood pressure 106/80, pulse ox 99% on 2 L of oxygen. GENERAL: No acute distress. HEENT: Normocephalic, atraumatic. NECK: Supple. LUNGS: Decreased breath sounds. CARDIOVASCULAR: Regular rate and rhythm. GI: Soft and nontender. NEUROLOGIC: Alert, awake, and oriented x3 MUSCULOSKELETAL: Moves all extremities. No edema. No edema. SKIN: Dry. PSYCH: Anxious, but at baseline. CONDITION AT DISCHARGE: Improved and stable. DISCHARGE MEDICATIONS: Please see medication reconciliation list. FOLLOWUP: Followup with PCP and GI in 1 to 2 weeks. TIME SPENT: Total discharge time is 31 minute. Dictated by RIANNA Cruz Valentín Tineo MD MY/MODL /[id number] cc: Dr. Anand
== END 2019-10-14 16:05 | disposition home or self-care (01) ==
LOC: ER 15:41 → ERHOLD 18:17 → MED/SURG2 20:01
PROVIDERS: ADMIT Internal Medicine; ATTEND Internal Medicine
DX: R19.7 Diarrhea, unspecified (principal); J44.9 Chronic obstructive pulmonary disease, unspecified; Z86.010 Personal history of colon polyps; E87.6 Hypokalemia; M54.9 Dorsalgia, unspecified; F32.9 Major depressive disorder, single episode, unspecified; R11.2 Nausea with vomiting, unspecified; I10 Essential (primary) hypertension; Z11.59 Encounter for screening for other viral diseases
CPT/HCPCS: 36415 ×3; 74177; 80053 ×3; 81001; 82550 ×2; 82553 ×2; 83630; 83690; 83735; 84484 ×2; 85025 ×3; 87045; 87177; 87493; 93005; 94664; 96360; 96361 ×2; 99284; C9113; G0378 ×3; J2270 ×2; J2405; J7030 ×3; J7121; J7512 ×2; Q9967; S0164; U0002

== ENCOUNTER 2020-04-29 17:31 | Inpatient (IN) | payer MEDICARE ==
[~2020-04-29] VITALS: Ht 157.5 cm; Wt 47.4 kg
[~2020-04-29 17:31] MED LIST changes: +DICYCLOMINE HCL10 MG PO; +PREDNISONE5 M1 PO
[2020-04-29] MEDS ORDERED: CEFTRIAXONE SOD 1 GM/50 ML BAG IV ONE (17:45)
[2020-04-29] MEDS ORDERED: ASPIRIN 81 MG CHEW TAB PO ONE (17:45)
[2020-04-29] MEDS ORDERED: MAGNESIUM SULFATE 2GM/50ML 50 ML IV ONE (17:45)
[2020-04-29] MEDS ORDERED: METHYLPREDNISOLONE SOD SUCC 125 MG/2ML VIAL IV ONE (17:45)
[2020-04-29] MEDS ORDERED: ALBUTEROL/IPRATROPIUM 3 ML NEB NEB ONE (17:45)
[2020-04-29 17:53] LABS: BASOPHILS # (AUTO) 0.1 (0.0-0.1); BASOPHILS % 0.6 % (0.0-1.0); EOSINOPHILS % 0.2 % (0.0-6.0); HEMATOCRIT 45.3 % (34.2-44.1); HEMOGLOBIN 14.1 g/dL (12.0-16.0); LYMPHOCYTES % 5.5 % (18.0-39.1); MEAN CORPUSCULAR HEMOGLOBIN 28.1 pg (28-32); MEAN CORPUSCULAR HGB CONC 31.1 g/dL (31-35); MEAN CORPUSCULAR VOLUME 90.2 fL (81-99); MONOCYTES # (AUTO) 0.5 (0.2-0.8); MONOCYTES % 2.7 % (4.4-11.3); NEUTROPHILS # (AUTO) 16.3 (2.1-6.9); NEUTROPHILS % 88.5 % (38.7-80.0); PLATELET COUNT 263 x10e3/uL (140-360); RED BLOOD COUNT 5.02 x10e6/uL (3.6-5.1); RED CELL DISTRIBUTION WIDTH 13.2 % (11.7-14.4)
[2020-04-29] MEDS ORDERED: CEFTRIAXONE SOD 1 GM in SODIUM CHLORIDE 0.9% 50ML 50 ML IV ONE (18:00)
[2020-04-29 18:05] LABS: ABG HCO3 33 mmol/L (22-26); ABG PCO2 68 mmHg (35-45); ABG PH 7.29 (7.35-7.45); ABG PO2 486 mmHg (80-105); ABG TCO2 35
[2020-04-29 18:09] LABS: ALANINE AMINOTRANSFERASE 20 IU/L (0-55); ALBUMIN 4.7 g/dL (3.5-5.0); ALBUMIN/GLOBULIN RATIO 1.6 (0.8-2.0); ALKALINE PHOSPHATASE 84 IU/L (40-150); ANION GAP 19.8 mmol/L (8-16); BLOOD UREA NITROGEN 24 mg/dL (7-26); BUN/CREATININE RATIO 32 (6-25); CALCIUM 9.2 mg/dL (8.4-10.2); CARBON DIOXIDE 28 mmol/L (22-29); CHLORIDE 100 mmol/L (98-107); CREATINE KINASE 50 IU/L (29-168); CREATININE, SERUM 0.75 mg/dL (0.57-1.11); EST GLOMERULAR FILTRATION RATE > 60 ML/MIN (60-); GLUCOSE 130 mg/dL (74-118); POTASSIUM 4.8 mmol/L (3.5-5.1); SODIUM 143 mmol/L (136-145)
[2020-04-29] MEDS ORDERED: SODIUM CHLORIDE 0.9% 1000ML 1,000 ML ONE (18:28)
[2020-04-29] MEDS ORDERED: SODIUM CHLORIDE 0.9% 1000ML 1,000 ML IV SCH (18:30)
[2020-04-29] MEDS ORDERED: HYDROCODONE/APAP 5MG-325MG TAB PO ONE (19:15)
[2020-04-29] MEDS: AZITHROMYCIN 500MG/NS 250 ML 250 ML IV SCH (19:57)
[2020-04-29] MEDS ORDERED: CEFTRIAXONE SOD 1 GM in SODIUM CHLORIDE 0.9% 50ML 50 ML IV SCH (20:00)
[2020-04-29] MEDS ORDERED: ONDANSETRON HCL INJ 2MG/ML 2ML 2 MG/ML VIAL IV STA (20:11)
[2020-04-29] MEDS ORDERED: ONDANSETRON HCL INJ 2MG/ML 2ML 2 MG/ML VIAL ONE (20:21)
[2020-04-29 20:45] LABS: ABG HCO3 29 mmol/L (22-26); ABG PCO2 55 mmHg (35-45); ABG PH 7.32 (7.35-7.45); ABG PO2 165 mmHg (80-105); ABG TCO2 30
[2020-04-29] MEDS ORDERED: DIPHENHYDRAMINE HCL INJ 50 MG/ML VIAL ONE (20:57)
[2020-04-29] MEDS ORDERED: METOCLOPRAMIDE HCL 10 MG/2ML VIAL ONE (20:57)
[2020-04-29] MEDS ORDERED: METOCLOPRAMIDE HCL 10 MG/2ML VIAL IV ONE (21:00)
[2020-04-29] MEDS ORDERED: DIPHENHYDRAMINE HCL INJ 50 MG/ML VIAL IV ONE (21:00)
[2020-04-29] MEDS ORDERED: IOPAMIDOL 370 MG/ML 200 ML INFUS..BTL INJ ONE (21:19)
[2020-04-29] MEDS ORDERED: SODIUM CHLORIDE 0.9% 50ML 50 ML ONE (21:19)
[2020-04-29 21:42] LABS: CLARITY,URINE SL CLOUDY (CLEAR); COLOR,URINE AMBER (YELLOW); KETONES,URINE 2+ (NEGATIVE); LEUKOCYTE ESTERASE ,URINE NEGATIVE (NEGATIVE); NITRITE,URINE NEGATIVE (NEGATIVE); PROTEIN,URINE DIPSTICK 2+ (NEGATIVE); URINE UROBILINOGEN 0.2 mg/dL (0.2 - 1)
[2020-04-29 21:54] LABS: BACTERIA,URINE RARE /HPF; RBC,URINE 0-5 /HPF (0-5)
[2020-04-29] MEDS: ALBUTEROL/IPRATROPIUM 3 ML NEB NEB SCH (22:05)
[2020-04-30] VITALS (9 sets, daily range): BP systolic 134–169; BP diastolic 91–99
[2020-04-30] MEDS: ALBUTEROL/IPRATROPIUM 3 ML NEB NEB SCH ×2 (04:10→07:34)
[2020-04-30] MEDS: ACETAMINOPHEN 325 MG TAB PO PRN (05:14)
[2020-04-30 05:53] LABS: BASOPHILS % 0.5 % (0.0-1.0); HEMATOCRIT 39.7 % (34.2-44.1); HEMOGLOBIN 12.3 g/dL (12.0-16.0); LYMPHOCYTES # (AUTO) 0.4 (1.0-3.2); LYMPHOCYTES % 5.9 % (18.0-39.1); MEAN CORPUSCULAR HEMOGLOBIN 28.1 pg (28-32); MEAN CORPUSCULAR VOLUME 90.8 fL (81-99); MONOCYTES # (AUTO) 0.6 (0.2-0.8); MONOCYTES % 7.8 % (4.4-11.3); NEUTROPHILS # (AUTO) 6.2 (2.1-6.9); NEUTROPHILS % 82.8 % (38.7-80.0); PLATELET COUNT 157 x10e3/uL (140-360); RED BLOOD COUNT 4.37 x10e6/uL (3.6-5.1)
[2020-04-30 06:17] LABS: CREATINE KINASE MB 3.6 ng/mL (0-5.0)
[2020-04-30 06:39] LABS: ANION GAP 17.5 mmol/L (8-16); BLOOD UREA NITROGEN 20 mg/dL (7-26); BUN/CREATININE RATIO 31 (6-25); CALCIUM 8.7 mg/dL (8.4-10.2); CARBON DIOXIDE 27 mmol/L (22-29); CHLORIDE 102 mmol/L (98-107); CREATININE, SERUM 0.64 mg/dL (0.57-1.11); EST GLOMERULAR FILTRATION RATE > 60 ML/MIN (60-); GLUCOSE 102 mg/dL (74-118); POTASSIUM 4.5 mmol/L (3.5-5.1); SODIUM 142 mmol/L (136-145)
[2020-04-30] MEDS ORDERED: ONDANSETRON HCL INJ 2MG/ML 2ML 2 MG/ML VIAL IV PRN (07:00)
[2020-04-30] MEDS ORDERED: METHYLPREDNISOLONE SOD SUCC 125 MG/2ML VIAL IV SCH (09:00)
[2020-04-30] MEDS: IPRATROPIUM BROMIDE 0.02% 2.5 ML NEB NEB SCH ×4 (11:00→23:00)
[2020-04-30] MEDS ORDERED: CALCIUM CARBONATE 500 MG CHEWABLE TABS PO PRN (11:00)
[2020-04-30] MEDS ORDERED: SIMETHICONE 80 MG CHEW PO PRN (11:00)
[2020-04-30] MEDS: LACTOBACILLUS ACIDOPHILUS CAPSULE PO SCH ×2 (12:03→17:32)
[2020-04-30] MEDS: ENOXAPARIN SOD INJ 40 MG/0.4 ML SYR SC SCH (17:32)
[2020-04-30] MEDS: PROMETHAZINE 12.5MG/ NACL 0.9% 12.5 MG/50 ML BAG IV PRN (18:35)
[2020-04-30] MEDS: AZITHROMYCIN 500MG/NS 250 ML 250 ML IV SCH (18:39)
[2020-04-30] MEDS ORDERED: CEFTRIAXONE SOD 1 GM/50 ML BAG IV SCH (19:30)
[2020-04-30] MEDS ORDERED: CEFTRIAXONE SOD 1 GM VIAL ONE (20:39)
[2020-04-30] MEDS: CEFTRIAXONE SOD 1 GM in SODIUM CHLORIDE 0.9% 50ML 50 ML IV SCH (20:39)
[2020-04-30] MEDS: DICYCLOMINE HCL 10 MG CAP PO SCH (20:40)
[2020-04-30] MEDS: METHYLPREDNISOLONE SOD SUCC 40 MG/ML VIAL 1ML IV SCH (20:40)
[2020-04-30] MEDS: SODIUM CHLORIDE 0.45% 1,000 ML IV SCH (20:40)
[2020-05-01] VITALS (9 sets, daily range): BP systolic 110–168; BP diastolic 85–109
[2020-05-01] MEDS: PROMETHAZINE 12.5MG/ NACL 0.9% 12.5 MG/50 ML BAG IV PRN (01:37)
[2020-05-01] MEDS: IPRATROPIUM BROMIDE 0.02% 2.5 ML NEB NEB SCH ×6 (03:00→23:05)
[2020-05-01] MEDS: ZOLPIDEM TARTRATE 5 MG TAB PO PRN (03:03)
[2020-05-01] MEDS ORDERED: CLONIDINE HCL 0.1 MG TAB PO ONE (05:45)
[2020-05-01] MEDS: METHYLPREDNISOLONE SOD SUCC 40 MG/ML VIAL 1ML IV SCH ×2 (09:30→21:40)
[2020-05-01] MEDS: DICYCLOMINE HCL 10 MG CAP PO SCH ×3 (09:30→21:40)
[2020-05-01] MEDS: LACTOBACILLUS ACIDOPHILUS CAPSULE PO SCH ×2 (09:30→17:10)
[2020-05-01] MEDS ORDERED: ALBUTEROL SULFATE HFA 8GM INHALATION AEROSOL INH PRN (14:30)
[2020-05-01] MEDS: ACETAMINOPHEN 325 MG TAB PO PRN (14:31)
[2020-05-01] MEDS ORDERED: HYDROCODONE/APAP 10MG-325MG TAB PO PRN (16:30)
[2020-05-01] MEDS: GABAPENTIN 300 MG CAP PO SCH ×2 (16:48→21:40)
[2020-05-01] MEDS: HYDROCODONE/APAP 10MG-325MG TAB PO PRN (17:10)
[2020-05-01] MEDS: ENOXAPARIN SOD INJ 40 MG/0.4 ML SYR SC SCH (17:10)
[2020-05-01] MEDS ORDERED: ONDANSETRON HCL INJ 2MG/ML 2ML 2 MG/ML VIAL IV NR (17:46)
[2020-05-01] MEDS: SALMETEROL/FLUTICASONE 250/50 INH SCH (19:35)
[2020-05-01] MEDS ORDERED: CEFTRIAXONE SOD 1 GM VIAL ONE (21:24)
[2020-05-01] MEDS ORDERED: SODIUM CHLORIDE 0.9% 50ML 50 ML ONE (21:25)
[2020-05-01] MEDS: SODIUM CHLORIDE 0.45% 1,000 ML IV SCH (21:40)
[2020-05-01] MEDS: CEFTRIAXONE SOD 1 GM in SODIUM CHLORIDE 0.9% 50ML 50 ML IV SCH (21:40)
[2020-05-01] MEDS: METOPROLOL TARTRATE 25 MG TAB PO SCH (21:40)
[2020-05-01] MEDS: AZITHROMYCIN 500MG/NS 250 ML 250 ML IV SCH (21:58)
[2020-05-02] VITALS (8 sets, daily range): BP systolic 111–166; BP diastolic 80–109
[2020-05-02] MEDS: PROMETHAZINE 12.5MG/ NACL 0.9% 12.5 MG/50 ML BAG IV PRN (02:31)
[2020-05-02] MEDS: HYDROCODONE/APAP 10MG-325MG TAB PO PRN ×2 (02:35→20:02)
[2020-05-02] MEDS: IPRATROPIUM BROMIDE 0.02% 2.5 ML NEB NEB SCH ×6 (03:20→23:15)
[2020-05-02] MEDS: CLONIDINE HCL 0.1 MG TAB PO PRN (04:31)
[2020-05-02] MEDS: TIOTROPIUM 18 MCG INH POWDER INH SCH (05:25)
[2020-05-02] MEDS: SALMETEROL/FLUTICASONE 250/50 INH SCH ×2 (05:25→20:10)
[2020-05-02] MEDS: METOPROLOL TARTRATE 25 MG TAB PO SCH ×2 (09:01→20:02)
[2020-05-02] MEDS: DICYCLOMINE HCL 10 MG CAP PO SCH ×3 (09:01→20:02)
[2020-05-02] MEDS: METHYLPREDNISOLONE SOD SUCC 40 MG/ML VIAL 1ML IV SCH ×2 (09:01→20:02)
[2020-05-02] MEDS: LACTOBACILLUS ACIDOPHILUS CAPSULE PO SCH ×2 (09:02→17:00)
[2020-05-02] MEDS: GABAPENTIN 300 MG CAP PO SCH ×3 (09:02→20:02)
[2020-05-02] MEDS: SODIUM CHLORIDE 0.45% 1,000 ML IV SCH ×2 (12:30→18:18)
[2020-05-02] MEDS: ENOXAPARIN SOD INJ 40 MG/0.4 ML SYR SC SCH (17:00)
[2020-05-02] MEDS ORDERED: CEFTRIAXONE SOD 1 GM VIAL ONE (19:38)
[2020-05-02] MEDS: AZITHROMYCIN 500MG/NS 250 ML 250 ML IV SCH (19:38)
[2020-05-02] MEDS ORDERED: SODIUM CHLORIDE 0.9% 50ML 50 ML ONE (19:39)
[2020-05-02] MEDS: CEFTRIAXONE SOD 1 GM in SODIUM CHLORIDE 0.9% 50ML 50 ML IV SCH (20:00)
[2020-05-03] VITALS (8 sets, daily range): BP systolic 123–140; BP diastolic 78–88
[2020-05-03] MEDS: IPRATROPIUM BROMIDE 0.02% 2.5 ML NEB NEB SCH ×6 (02:55→23:45)
[2020-05-03] MEDS: HYDROCODONE/APAP 10MG-325MG TAB PO PRN ×3 (06:08→21:16)
[2020-05-03] MEDS: SALMETEROL/FLUTICASONE 250/50 INH SCH ×2 (07:20→19:50)
[2020-05-03] MEDS: TIOTROPIUM 18 MCG INH POWDER INH SCH (07:20)
[2020-05-03] MEDS: DICYCLOMINE HCL 10 MG CAP PO SCH ×3 (09:01→21:17)
[2020-05-03] MEDS: METHYLPREDNISOLONE SOD SUCC 40 MG/ML VIAL 1ML IV SCH ×2 (09:01→21:09)
[2020-05-03] MEDS: METOPROLOL TARTRATE 25 MG TAB PO SCH ×2 (09:02→21:09)
[2020-05-03] MEDS: GABAPENTIN 300 MG CAP PO SCH ×3 (09:02→21:09)
[2020-05-03] MEDS: LACTOBACILLUS ACIDOPHILUS CAPSULE PO SCH ×2 (09:02→18:20)
[2020-05-03] MEDS ORDERED: AZITHROMYCIN 500MG/NS 250 ML 250 ML IV SCH ×3 (10:30→20:00)
[2020-05-03] MEDS: ENOXAPARIN SOD INJ 40 MG/0.4 ML SYR SC SCH (18:20)
[2020-05-03] MEDS ORDERED: CEFTRIAXONE SOD 1 GM VIAL ONE (20:45)
[2020-05-03] MEDS ORDERED: SODIUM CHLORIDE 0.9% 50ML 50 ML ONE (20:46)
[2020-05-03] MEDS: CEFTRIAXONE SOD 1 GM in SODIUM CHLORIDE 0.9% 50ML 50 ML IV SCH (21:17)
[2020-05-03] MEDS: ZOLPIDEM TARTRATE 5 MG TAB PO PRN (21:30)
[2020-05-04] VITALS (7 sets, daily range): BP systolic 122–164; BP diastolic 54–96
[2020-05-04] MEDS ORDERED: ALBUTEROL SULFATE HFA 8GM INHALATION AEROSOL INH ONE (00:46)
[2020-05-04] MEDS: IPRATROPIUM BROMIDE 0.02% 2.5 ML NEB NEB SCH ×5 (03:45→21:00)
[2020-05-04] MEDS: SODIUM CHLORIDE 0.45% 1,000 ML IV SCH (04:30)
[2020-05-04] MEDS: HYDROCODONE/APAP 10MG-325MG TAB PO PRN ×3 (04:51→20:59)
[2020-05-04] MEDS: SALMETEROL/FLUTICASONE 250/50 INH SCH ×2 (07:15→21:00)
[2020-05-04] MEDS: TIOTROPIUM 18 MCG INH POWDER INH SCH (07:15)
[2020-05-04] MEDS: METHYLPREDNISOLONE SOD SUCC 40 MG/ML VIAL 1ML IV SCH ×2 (08:39→20:58)
[2020-05-04] MEDS: DICYCLOMINE HCL 10 MG CAP PO SCH ×3 (08:39→20:58)
[2020-05-04] MEDS: METOPROLOL TARTRATE 25 MG TAB PO SCH ×2 (08:40→20:59)
[2020-05-04] MEDS: GABAPENTIN 300 MG CAP PO SCH ×3 (08:40→20:59)
[2020-05-04] MEDS: LACTOBACILLUS ACIDOPHILUS CAPSULE PO SCH ×2 (08:40→17:15)
[2020-05-04] MEDS ORDERED: AZITHROMYCIN 250 MG TAB PO SCH (09:00)
[2020-05-04] MEDS: ENOXAPARIN SOD INJ 40 MG/0.4 ML SYR SC SCH (17:18)
[2020-05-04] MEDS ORDERED: CEFTRIAXONE SOD 1 GM VIAL ONE (20:20)
[2020-05-04] MEDS: CEFTRIAXONE SOD 1 GM in SODIUM CHLORIDE 0.9% 50ML 50 ML IV SCH (20:57)
[2020-05-04] MEDS: ZOLPIDEM TARTRATE 5 MG TAB PO PRN (20:59)
[2020-05-04] MEDS: AZITHROMYCIN 250 MG TAB PO SCH (20:59)
[2020-05-04] MEDS ORDERED: SODIUM CHLORIDE 0.9% 50ML 50 ML ONE (21:05)
[2020-05-05] VITALS: BP 138/86
[2020-05-05] MEDS: IPRATROPIUM BROMIDE 0.02% 2.5 ML NEB NEB SCH ×7 (00:35→20:30)
[2020-05-05] MEDS: SODIUM CHLORIDE 0.45% 1,000 ML IV SCH ×2 (01:55→05:00)
[2020-05-05] MEDS: TIOTROPIUM 18 MCG INH POWDER INH SCH (06:00)
[2020-05-05 06:10] LABS: BASOPHILS % 0.3 % (0.0-1.0); HEMATOCRIT 39.9 % (34.2-44.1); HEMOGLOBIN 12.1 g/dL (12.0-16.0); LYMPHOCYTES # (AUTO) 0.5 (1.0-3.2); LYMPHOCYTES % 4.8 % (18.0-39.1); MEAN CORPUSCULAR HEMOGLOBIN 27.6 pg (28-32); MEAN CORPUSCULAR HGB CONC 30.3 g/dL (31-35); MEAN CORPUSCULAR VOLUME 91.1 fL (81-99); MONOCYTES # (AUTO) 0.4 (0.2-0.8); MONOCYTES % 4.7 % (4.4-11.3); NEUTROPHILS # (AUTO) 8.2 (2.1-6.9); NEUTROPHILS % 87.8 % (38.7-80.0); PLATELET COUNT 155 x10e3/uL (140-360); RED BLOOD COUNT 4.38 x10e6/uL (3.6-5.1); RED CELL DISTRIBUTION WIDTH 12.9 % (11.7-14.4)
[2020-05-05] MEDS: SALMETEROL/FLUTICASONE 250/50 INH SCH ×2 (06:22→20:30)
[2020-05-05 06:34] LABS: ANION GAP 12.6 mmol/L (8-16); BLOOD UREA NITROGEN 20 mg/dL (7-26); BUN/CREATININE RATIO 33 (6-25); CALCIUM 8.5 mg/dL (8.4-10.2); CARBON DIOXIDE 30 mmol/L (22-29); CHLORIDE 100 mmol/L (98-107); CREATININE, SERUM 0.61 mg/dL (0.57-1.11); EST GLOMERULAR FILTRATION RATE > 60 ML/MIN (60-); GLUCOSE 116 mg/dL (74-118); POTASSIUM 4.6 mmol/L (3.5-5.1); SODIUM 138 mmol/L (136-145)
[2020-05-05 08:39] VITALS: BP 149/87
[2020-05-05] MEDS: METHYLPREDNISOLONE SOD SUCC 40 MG/ML VIAL 1ML IV SCH ×2 (09:03→20:31)
[2020-05-05 09:04] VITALS: BP 149/87
[2020-05-05] MEDS: DICYCLOMINE HCL 10 MG CAP PO SCH ×3 (09:04→20:31)
[2020-05-05] MEDS: GABAPENTIN 300 MG CAP PO SCH ×3 (09:04→20:32)
[2020-05-05] MEDS: PANTOPRAZOLE SOD 40 MG TABEC PO SCH (09:04)
[2020-05-05] MEDS: SERTRALINE HCL 100 MG TAB PO SCH (09:04)
[2020-05-05] MEDS: METOPROLOL TARTRATE 25 MG TAB PO SCH ×2 (09:04→20:31)
[2020-05-05] MEDS: LACTOBACILLUS ACIDOPHILUS CAPSULE PO SCH ×2 (09:04→16:47)
[2020-05-05] MEDS: HYDROCODONE/APAP 10MG-325MG TAB PO PRN ×2 (09:19→19:44)
[2020-05-05 12:00] VITALS: BP_SYST 135; BP_SYST 150; BP_DIAS 47; BP_DIAS 91
[2020-05-05 16:00] VITALS: BP 163/95
[2020-05-05] MEDS: ENOXAPARIN SOD INJ 40 MG/0.4 ML SYR SC SCH (16:47)
[2020-05-05 20:00] VITALS: BP 149/98
[2020-05-05] MEDS: CEFTRIAXONE SOD 1 GM in SODIUM CHLORIDE 0.9% 50ML 50 ML IV SCH (20:30)
[2020-05-05] MEDS ORDERED: SODIUM CHLORIDE 0.9% 50ML 50 ML ONE (20:44)
[2020-05-05] MEDS ORDERED: CEFTRIAXONE SOD 1 GM VIAL ONE (20:44)
[2020-05-05] MEDS: AZITHROMYCIN 250 MG TAB PO SCH (21:50)
[2020-05-05] MEDS: ZOLPIDEM TARTRATE 5 MG TAB PO PRN (21:53)
[2020-05-06] VITALS (8 sets, daily range): BP systolic 130–163; BP diastolic 83–96
[2020-05-06] MEDS: IPRATROPIUM BROMIDE 0.02% 2.5 ML NEB NEB SCH ×6 (03:00→23:10)
[2020-05-06] MEDS: TIOTROPIUM 18 MCG INH POWDER INH SCH (05:40)
[2020-05-06] MEDS: SALMETEROL/FLUTICASONE 250/50 INH SCH ×2 (07:09→18:40)
[2020-05-06] MEDS: HYDROCODONE/APAP 10MG-325MG TAB PO PRN ×2 (08:33→14:58)
[2020-05-06] MEDS: METOPROLOL TARTRATE 25 MG TAB PO SCH ×2 (09:00→20:15)
[2020-05-06] MEDS: METHYLPREDNISOLONE SOD SUCC 40 MG/ML VIAL 1ML IV SCH ×2 (09:00→20:13)
[2020-05-06] MEDS: DICYCLOMINE HCL 10 MG CAP PO SCH ×3 (09:00→20:13)
[2020-05-06] MEDS: LACTOBACILLUS ACIDOPHILUS CAPSULE PO SCH ×2 (09:01→17:10)
[2020-05-06] MEDS: SERTRALINE HCL 100 MG TAB PO SCH (09:01)
[2020-05-06] MEDS: PANTOPRAZOLE SOD 40 MG TABEC PO SCH (09:01)
[2020-05-06] MEDS: GABAPENTIN 300 MG CAP PO SCH ×3 (09:01→20:13)
[2020-05-06] MEDS: ENOXAPARIN SOD INJ 40 MG/0.4 ML SYR SC SCH (17:10)
[2020-05-06] MEDS: CEFTRIAXONE SOD 1 GM in SODIUM CHLORIDE 0.9% 50ML 50 ML IV SCH (20:13)
[2020-05-06] MEDS: SODIUM CHLORIDE 0.45% 1,000 ML IV SCH (20:15)
[2020-05-06] MEDS ORDERED: CEFTRIAXONE SOD 1 GM VIAL ONE (20:27)
[2020-05-06] MEDS ORDERED: SODIUM CHLORIDE 0.9% 50ML 50 ML ONE (20:28)
[2020-05-06] MEDS: AZITHROMYCIN 250 MG TAB PO SCH (22:13)
[2020-05-06] MEDS: ZOLPIDEM TARTRATE 5 MG TAB PO PRN (22:26)
[2020-05-07] VITALS (8 sets, daily range): BP systolic 126–170; BP diastolic 62–103
[2020-05-07] MEDS: IPRATROPIUM BROMIDE 0.02% 2.5 ML NEB NEB SCH ×5 (03:00→14:42)
[2020-05-07] MEDS: SALMETEROL/FLUTICASONE 250/50 INH SCH ×2 (06:41→19:00)
[2020-05-07] MEDS: HYDROCODONE/APAP 10MG-325MG TAB PO PRN ×3 (08:39→21:30)
[2020-05-07] MEDS: SERTRALINE HCL 100 MG TAB PO SCH (08:40)
[2020-05-07] MEDS: LACTOBACILLUS ACIDOPHILUS CAPSULE PO SCH ×2 (08:40→16:14)
[2020-05-07] MEDS: DICYCLOMINE HCL 10 MG CAP PO SCH ×3 (08:40→21:06)
[2020-05-07] MEDS: GABAPENTIN 300 MG CAP PO SCH ×3 (08:40→21:07)
[2020-05-07] MEDS: METOPROLOL TARTRATE 25 MG TAB PO SCH ×2 (08:40→21:07)
[2020-05-07] MEDS: PANTOPRAZOLE SOD 40 MG TABEC PO SCH (08:40)
[2020-05-07] MEDS: METHYLPREDNISOLONE SOD SUCC 40 MG/ML VIAL 1ML IV SCH ×3 (08:44→21:05)
[2020-05-07] MEDS: TIOTROPIUM 18 MCG INH POWDER INH SCH (10:55)
[2020-05-07] MEDS ORDERED: ALBUTEROL/IPRATROPIUM 3 ML NEB NEB PRN (14:45)
[2020-05-07] MEDS ORDERED: ALBUTEROL SULF 0.083% NEB SOLN 3 ML NEB ONE (14:50)
[2020-05-07] MEDS: SODIUM CHLORIDE 0.45% 1,000 ML IV SCH (16:14)
[2020-05-07] MEDS: ALBUTEROL/IPRATROPIUM 3 ML NEB NEB SCH ×2 (18:46→22:24)
[2020-05-07] MEDS: CEFTRIAXONE SOD 1 GM in SODIUM CHLORIDE 0.9% 50ML 50 ML IV SCH (21:03)
[2020-05-07] MEDS: ZOLPIDEM TARTRATE 5 MG TAB PO PRN (21:29)
[2020-05-07] MEDS: AZITHROMYCIN 250 MG TAB PO SCH (22:14)
[2020-05-08] VITALS (8 sets, daily range): BP systolic 118–167; BP diastolic 79–111
[2020-05-08] MEDS: ALBUTEROL/IPRATROPIUM 3 ML NEB NEB SCH ×6 (02:26→23:30)
[2020-05-08] MEDS: HYDROCODONE/APAP 10MG-325MG TAB PO PRN ×3 (06:45→22:20)
[2020-05-08] MEDS: LACTOBACILLUS ACIDOPHILUS CAPSULE PO SCH ×2 (08:00→16:12)
[2020-05-08] MEDS: GABAPENTIN 300 MG CAP PO SCH ×3 (08:00→21:03)
[2020-05-08] MEDS: PANTOPRAZOLE SOD 40 MG TABEC PO SCH (08:00)
[2020-05-08] MEDS: SERTRALINE HCL 100 MG TAB PO SCH (08:01)
[2020-05-08] MEDS: DICYCLOMINE HCL 10 MG CAP PO SCH ×3 (08:01→20:59)
[2020-05-08] MEDS: METHYLPREDNISOLONE SOD SUCC 40 MG/ML VIAL 1ML IV SCH (08:01)
[2020-05-08] MEDS: METOPROLOL TARTRATE 25 MG TAB PO SCH ×2 (08:01→21:00)
[2020-05-08] MEDS: TIOTROPIUM 18 MCG INH POWDER INH SCH (08:06)
[2020-05-08] MEDS: SALMETEROL/FLUTICASONE 250/50 INH SCH ×2 (08:06→19:25)
[2020-05-08] MEDS: SODIUM CHLORIDE 0.45% 1,000 ML IV SCH (09:47)
[2020-05-08] MEDS: CLONIDINE HCL 0.1 MG TAB PO PRN (11:33)
[2020-05-08] MEDS ORDERED: ENOXAPARIN SOD INJ 40 MG/0.4 ML SYR SC SCH (17:00)
[2020-05-08] MEDS: CEFTRIAXONE SOD 1 GM in SODIUM CHLORIDE 0.9% 50ML 50 ML IV SCH (20:59)
[2020-05-08] MEDS: AZITHROMYCIN 250 MG TAB PO SCH (22:04)
[2020-05-08] MEDS: ZOLPIDEM TARTRATE 5 MG TAB PO PRN (22:20)
[2020-05-09] VITALS: BP 127/83
[2020-05-09] MEDS ORDERED: BENZONATATE 100 MG CAP PO PRN (00:45)
[2020-05-09] MEDS: ALBUTEROL/IPRATROPIUM 3 ML NEB NEB SCH ×3 (03:30→11:51)
[2020-05-09 04:00] VITALS: BP 147/81
[2020-05-09 07:19] VITALS: BP 132/74
[2020-05-09 07:26] VITALS: BP 132/74
[2020-05-09] MEDS: DICYCLOMINE HCL 10 MG CAP PO SCH ×2 (08:06→13:59)
[2020-05-09] MEDS: METOPROLOL TARTRATE 25 MG TAB PO SCH (08:07)
[2020-05-09] MEDS: GABAPENTIN 300 MG CAP PO SCH ×2 (08:07→13:59)
[2020-05-09] MEDS: LACTOBACILLUS ACIDOPHILUS CAPSULE PO SCH (08:07)
[2020-05-09] MEDS: PANTOPRAZOLE SOD 40 MG TABEC PO SCH (08:08)
[2020-05-09] MEDS: SERTRALINE HCL 100 MG TAB PO SCH (08:08)
[2020-05-09] MEDS: SALMETEROL/FLUTICASONE 250/50 INH SCH (08:25)
[2020-05-09] MEDS: TIOTROPIUM 18 MCG INH POWDER INH SCH (08:25)
[2020-05-09] MEDS: HYDROCODONE/APAP 10MG-325MG TAB PO PRN ×2 (08:33→15:32)
[2020-05-09 11:16] VITALS: BP 124/81
[2020-05-09] MEDS ORDERED: PREDNISONE10 MG PO (14:22)
[2020-05-09] MEDS ORDERED: DICYCLOMINE HCL10 MG PO (14:22)
[2020-05-09 15:08] VITALS: BP 121/78
== END 2020-05-09 17:16 | disposition home health service (06) | DRG 189 ==
LOC: ER 17:55 → ERHOLD 18:50 → MED/SURG3 04-30 00:02
PROVIDERS: ADMIT Internal Medicine; ATTEND Internal Medicine
DX: J96.20 Acute and chronic respiratory failure, unspecified whether with hypoxia or hypercapnia (principal); J44.1 Chronic obstructive pulmonary disease with (acute) exacerbation; E44.1 Mild protein-calorie malnutrition; Z68.1 Body mass index [BMI] 19.9 or less, adult; D72.829 Elevated white blood cell count, unspecified; G89.4 Chronic pain syndrome; D64.9 Anemia, unspecified; K52.9 Noninfective gastroenteritis and colitis, unspecified; Z20.822 Contact with and (suspected) exposure to COVID-19; Z99.81 Dependence on supplemental oxygen; E86.1 Hypovolemia
CPT/HCPCS: 36415; 36600; 71045; 74177; 80048; 80053; 81001; 82550; 82553; 82805; 83605; 83880; 84443; 84484; 85025; 87040; 93005; 94640; 94644; 94660; 94664; 96361; 99251; 99285; J0456; J0696; J1200; J1650; J2405; J2550; J2765; J2920; J2930; J7030; Q9967; U0002

== ENCOUNTER 2021-05-14 19:41 | Inpatient (IN) | payer MEDICARE, OTHER ==
[~2021-05-14] VITALS: Ht 157.5 cm; Wt 47.2 kg
[2021-05-14] MEDS ORDERED: METHYLPREDNISOLONE SOD SUCC 125 MG/2ML VIAL IV ONE (20:00)
[2021-05-14 20:43] LABS: BASOPHILS # (AUTO) 0.1 (0.0-0.1); BASOPHILS % 0.6 % (0.0-1.0); EOSINOPHILS # (AUTO) 0.1 (0.0-0.4); EOSINOPHILS % 0.2 % (0.0-6.0); HEMATOCRIT 42.5 % (34.2-44.1); HEMOGLOBIN 13.3 g/dL (12.0-16.0); LYMPHOCYTES # (AUTO) 0.6 (1.0-3.2); MEAN CORPUSCULAR HGB CONC 31.3 g/dL (31-35); MEAN CORPUSCULAR VOLUME 92.6 fL (81-99); MONOCYTES % 4.9 % (4.4-11.3); NEUTROPHILS # (AUTO) 17.8 (2.1-6.9); NEUTROPHILS % 88.3 % (38.7-80.0); PLATELET COUNT 180 x10e3/uL (140-360); RED BLOOD COUNT 4.59 x10e6/uL (3.6-5.1); RED CELL DISTRIBUTION WIDTH 13.9 % (11.7-14.4)
[2021-05-14 20:59] LABS: ALBUMIN 4.3 g/dL (3.5-5.0); ALBUMIN/GLOBULIN RATIO 1.8 (0.8-2.0); ANION GAP 14.4 mmol/L (8-16); CALCIUM 9.2 mg/dL (8.4-10.2); CREATININE, SERUM 0.77 mg/dL (0.57-1.11); POTASSIUM 4.4 mmol/L (3.5-5.1)
[2021-05-14 21:05] LABS: CREATINE KINASE MB 5.9 ng/mL (0-5.0)
[2021-05-14] MEDS ORDERED: CEFTRIAXONE 1 GM in SODIUM CHLORIDE 0.9% 50ML 50 ML IV ONE (21:15)
[2021-05-14] MEDS ORDERED: SODIUM CHLORIDE 0.9% 1000ML 1,000 ML IV ONE (21:15)
[2021-05-14] MEDS ORDERED: ONDANSETRON HCL INJ 2MG/ML 2ML 2 MG/ML VIAL IV STA ×2 (21:43→23:34)
[2021-05-14] MEDS ORDERED: Morphine 2mg Syringe 2 MG/ML SYR IV ONE (21:45)
[2021-05-14 22:23] LABS: CLARITY,URINE CLEAR (CLEAR); COLOR,URINE YELLOW (YELLOW); KETONES,URINE NEGATIVE (NEGATIVE); LEUKOCYTE ESTERASE ,URINE NEGATIVE (NEGATIVE); NITRITE,URINE NEGATIVE (NEGATIVE); PROTEIN,URINE DIPSTICK 1+ (NEGATIVE); URINE UROBILINOGEN 0.2 mg/dL (0.2 - 1)
[2021-05-14 22:27] LABS: BACTERIA,URINE FEW /HPF; EPITHELIAL CELLS,URINE RARE /LPF; RBC,URINE 0-5 /HPF (0-5); WBC,URINE (MAN) 0-5 /HPF (0-5)
[2021-05-14] MEDS ORDERED: METOPROLOL TARTRATE INJ 1 MG/ML VIAL IV ONE (23:00)
[2021-05-14] MEDS ORDERED: METOPROLOL TARTRATE INJ 1 MG/ML VIAL IV PRN (23:30)
[2021-05-14] MEDS: CEFTRIAXONE 1 GM in SODIUM CHLORIDE 0.9% 50ML 50 ML IV SCH (23:30)
[2021-05-14] MEDS ORDERED: ALBUTEROL/IPRATROPIUM 3 ML NEB NEB ONE (23:30)
[2021-05-14] MEDS: ALBUTEROL/IPRATROPIUM 3 ML NEB NEB SCH (23:30)
[2021-05-14] MEDS ORDERED: SODIUM CHLORIDE FLUSH 10 ML SYR INJ PRN (23:30)
[2021-05-14] MEDS ORDERED: Morphine 4mg Syringe 4 MG/ML INJ IV ONE (23:45)
[2021-05-15] VITALS (10 sets, daily range): BP systolic 96–168; BP diastolic 67–103
[2021-05-15] MEDS: CEFTRIAXONE 1 GM in SODIUM CHLORIDE 0.9% 50ML 50 ML IV SCH ×2 (01:26→21:51)
[2021-05-15] MEDS: ALBUTEROL/IPRATROPIUM 3 ML NEB NEB SCH ×6 (03:00→22:40)
[2021-05-15] MEDS: METHYLPREDNISOLONE SOD SUCC 40 MG/ML VIAL 1ML IV SCH ×4 (05:22→21:51)
[2021-05-15 06:20] LABS: BASOPHILS % 0.2 % (0.0-1.0); HEMATOCRIT 39.1 % (34.2-44.1); HEMOGLOBIN 12.2 g/dL (12.0-16.0); LYMPHOCYTES # (AUTO) 0.3 (1.0-3.2); LYMPHOCYTES % 2.2 % (18.0-39.1); MEAN CORPUSCULAR HEMOGLOBIN 29.3 pg (28-32); MEAN CORPUSCULAR HGB CONC 31.2 g/dL (31-35); MONOCYTES # (AUTO) 0.5 (0.2-0.8); MONOCYTES % 3.4 % (4.4-11.3); NEUTROPHILS # (AUTO) 12.4 (2.1-6.9); NEUTROPHILS % 92.1 % (38.7-80.0); PLATELET COUNT 142 x10e3/uL (140-360); RED BLOOD COUNT 4.16 x10e6/uL (3.6-5.1)
[2021-05-15] MEDS: Morphine 2mg Syringe 2 MG/ML SYR IV PRN ×2 (06:42→11:30)
[2021-05-15] MEDS ORDERED: ACETAMINOPHEN 325 MG TAB PO PRN (06:45)
[2021-05-15 06:58] LABS: ANION GAP 14.8 mmol/L (8-16); CALCIUM 8.3 mg/dL (8.4-10.2); CREATININE, SERUM 0.71 mg/dL (0.57-1.11); POTASSIUM 4.8 mmol/L (3.5-5.1)
[2021-05-15] MEDS ORDERED: ALBUTEROL SULFATE HFA 8GM INHALATION AEROSOL INH PRN (10:15)
[2021-05-15] MEDS: METOPROLOL TARTRATE 25 MG TAB PO SCH ×2 (11:22→21:00)
[2021-05-15 16:56] LABS: CREATINE KINASE MB 6.5 ng/mL (0-5.0)
[2021-05-15] MEDS: GABAPENTIN 300 MG CAP PO SCH ×2 (17:09→21:51)
[2021-05-15] MEDS: ENOXAPARIN 30 MG/0.3 ML SYR SC SCH (17:09)
[2021-05-15] MEDS: TIZANIDINE HCL 4 MG TAB PO SCH ×2 (17:09→21:51)
[2021-05-15] MEDS ORDERED: SODIUM CHLORIDE 0.9% 250ML 250 ML ONE (21:41)
[2021-05-15] MEDS: FAMOTIDINE 20 MG TAB PO SCH (21:51)
[2021-05-16] MEDS: Morphine 2mg Syringe 2 MG/ML SYR IV PRN ×2 (01:58→07:17)
[2021-05-16] MEDS: ALBUTEROL/IPRATROPIUM 3 ML NEB NEB SCH ×6 (03:30→23:05)
[2021-05-16 04:56] VITALS: BP 121/80
[2021-05-16 05:00] LABS: BASOPHILS % 0.2 % (0.0-1.0); HEMOGLOBIN 11.4 g/dL (12.0-16.0); LYMPHOCYTES # (AUTO) 0.4 (1.0-3.2); MEAN CORPUSCULAR HEMOGLOBIN 29.2 pg (28-32); MEAN CORPUSCULAR HGB CONC 31.7 g/dL (31-35); MEAN CORPUSCULAR VOLUME 92.1 fL (81-99); MONOCYTES # (AUTO) 0.6 (0.2-0.8); MONOCYTES % 4.8 % (4.4-11.3); NEUTROPHILS # (AUTO) 10.6 (2.1-6.9); NEUTROPHILS % 90.5 % (38.7-80.0); PLATELET COUNT 126 x10e3/uL (140-360); RED BLOOD COUNT 3.91 x10e6/uL (3.6-5.1); RED CELL DISTRIBUTION WIDTH 13.7 % (11.7-14.4)
[2021-05-16] MEDS: TIOTROPIUM 18 MCG INH POWDER INH SCH (06:40)
[2021-05-16 07:57] VITALS: BP 146/61
[2021-05-16 08:02] VITALS: BP 146/61
[2021-05-16] MEDS: METHYLPREDNISOLONE SOD SUCC 40 MG/ML VIAL 1ML IV SCH ×2 (08:40→21:05)
[2021-05-16] MEDS: TIZANIDINE HCL 4 MG TAB PO SCH ×3 (08:40→21:07)
[2021-05-16] MEDS: SERTRALINE HCL 100 MG TAB PO SCH (08:41)
[2021-05-16] MEDS: METOPROLOL TARTRATE 25 MG TAB PO SCH ×2 (08:42→21:06)
[2021-05-16] MEDS ORDERED: Morphine 2mg Syringe 2 MG/ML SYR IV ONE (08:45)
[2021-05-16] MEDS: GABAPENTIN 300 MG CAP PO SCH ×3 (08:46→21:06)
[2021-05-16 12:19] VITALS: BP 115/62
[2021-05-16] MEDS: Morphine 4mg Syringe 4 MG/ML INJ IV PRN (14:39)
[2021-05-16 15:21] VITALS: BP 142/81
[2021-05-16] MEDS ORDERED: HYDROMORPHONE 1MG/1ML INJ IV STA (16:24)
[2021-05-16] MEDS: ENOXAPARIN 30 MG/0.3 ML SYR SC SCH (17:12)
[2021-05-16] MEDS ORDERED: KETOROLAC TROMETHAMINE 30 MG/ML VIAL IV ONE (19:30)
[2021-05-16 20:32] VITALS: BP 116/71
[2021-05-16] MEDS: FAMOTIDINE 20 MG TAB PO SCH (21:06)
[2021-05-16] MEDS: HYDROCODONE/APAP 10MG-325MG TAB PO PRN (21:06)
[2021-05-17] VITALS (8 sets, daily range): BP systolic 85–147; BP diastolic 52–92
[2021-05-17] MEDS: CEFTRIAXONE 1 GM in SODIUM CHLORIDE 0.9% 50ML 50 ML IV SCH (00:19)
[2021-05-17] MEDS: ALBUTEROL/IPRATROPIUM 3 ML NEB NEB SCH ×6 (03:42→22:50)
[2021-05-17] MEDS: HYDROCODONE/APAP 10MG-325MG TAB PO PRN (04:05)
[2021-05-17 05:01] LABS: BASOPHILS % 0.2 % (0.0-1.0); HEMATOCRIT 37.9 % (34.2-44.1); HEMOGLOBIN 11.7 g/dL (12.0-16.0); LYMPHOCYTES # (AUTO) 0.2 (1.0-3.2); LYMPHOCYTES % 1.9 % (18.0-39.1); MEAN CORPUSCULAR HEMOGLOBIN 29.3 pg (28-32); MEAN CORPUSCULAR HGB CONC 30.9 g/dL (31-35); MEAN CORPUSCULAR VOLUME 94.8 fL (81-99); MONOCYTES # (AUTO) 0.7 (0.2-0.8); MONOCYTES % 5.3 % (4.4-11.3); NEUTROPHILS # (AUTO) 11.1 (2.1-6.9); NEUTROPHILS % 91.2 % (38.7-80.0); PLATELET COUNT 115 x10e3/uL (140-360); RED CELL DISTRIBUTION WIDTH 13.8 % (11.7-14.4)
[2021-05-17 05:17] LABS: ANION GAP 15.7 mmol/L (8-16); CALCIUM 8.9 mg/dL (8.4-10.2); CREATININE, SERUM 1.17 mg/dL (0.57-1.11); MAGNESIUM 2.8 MG/DL (1.3-2.1); POTASSIUM 4.7 mmol/L (3.5-5.1)
[2021-05-17 05:44] LABS: THYROID STIMULATING HORMONE 0.346 uIU/mL (0.350-4.940)
[2021-05-17] MEDS: TIOTROPIUM 18 MCG INH POWDER INH SCH (06:40)
[2021-05-17] MEDS: Morphine 4mg Syringe 4 MG/ML INJ IV PRN ×4 (07:10→22:00)
[2021-05-17] MEDS: (Roflumilast (Daliresp) 500 MCG) PO SCH (08:37)
[2021-05-17] MEDS: METHYLPREDNISOLONE SOD SUCC 40 MG/ML VIAL 1ML IV SCH ×2 (08:37→22:05)
[2021-05-17] MEDS: GABAPENTIN 300 MG CAP PO SCH ×3 (08:37→22:05)
[2021-05-17] MEDS: TIZANIDINE HCL 4 MG TAB PO SCH ×3 (08:38→22:05)
[2021-05-17] MEDS: SERTRALINE HCL 100 MG TAB PO SCH (08:38)
[2021-05-17] MEDS: METOPROLOL TARTRATE 25 MG TAB PO SCH ×2 (08:51→22:05)
[2021-05-17] MEDS ORDERED: SODIUM CHLORIDE 0.9% 500ML 500 ML IV ONE (09:45)
[2021-05-17] MEDS: LIDOCAINE 4% PATCH TP SCH (12:48)
[2021-05-17] MEDS ORDERED: ONDANSETRON HCL INJ 2MG/ML 2ML 2 MG/ML VIAL IV PRN (15:30)
[2021-05-17 16:11] LABS: CREATINE KINASE MB 2.6 ng/mL (0-5.0)
[2021-05-17] MEDS: ENOXAPARIN 30 MG/0.3 ML SYR SC SCH (17:23)
[2021-05-17] MEDS: FAMOTIDINE 20 MG TAB PO SCH (22:05)
[2021-05-17] MEDS ORDERED: SODIUM CHLORIDE 0.9% 250ML 250 ML ONE ×2 (23:44→23:45)
[2021-05-18] VITALS (7 sets, daily range): BP systolic 96–128; BP diastolic 66–87
[2021-05-18] MEDS: CEFTRIAXONE 1 GM in SODIUM CHLORIDE 0.9% 50ML 50 ML IV SCH ×2 (00:02→22:38)
[2021-05-18] MEDS: ALBUTEROL/IPRATROPIUM 3 ML NEB NEB SCH ×6 (02:55→22:37)
[2021-05-18] MEDS: TIOTROPIUM 18 MCG INH POWDER INH SCH (05:30)
[2021-05-18 07:04] LABS: ANION GAP 12.3 mmol/L (8-16); CALCIUM 8.3 mg/dL (8.4-10.2); CREATININE, SERUM 0.82 mg/dL (0.57-1.11); POTASSIUM 5.3 mmol/L (3.5-5.1)
[2021-05-18] MEDS: METOPROLOL TARTRATE 25 MG TAB PO SCH ×2 (09:00→22:38)
[2021-05-18] MEDS: METHYLPREDNISOLONE SOD SUCC 40 MG/ML VIAL 1ML IV SCH ×2 (09:00→22:37)
[2021-05-18] MEDS: (Roflumilast (Daliresp) 500 MCG) PO SCH (09:00)
[2021-05-18] MEDS: LIDOCAINE 4% PATCH TP SCH (09:00)
[2021-05-18] MEDS: SERTRALINE HCL 100 MG TAB PO SCH (09:00)
[2021-05-18] MEDS: GABAPENTIN 300 MG CAP PO SCH ×3 (09:00→22:38)
[2021-05-18] MEDS: TIZANIDINE HCL 4 MG TAB PO SCH ×3 (09:00→22:38)
[2021-05-18] MEDS: ENOXAPARIN 30 MG/0.3 ML SYR SC SCH (17:35)
[2021-05-18] MEDS: FAMOTIDINE 20 MG TAB PO SCH (22:38)
[2021-05-19] VITALS: BP 99/66
[2021-05-19] MEDS: ALBUTEROL/IPRATROPIUM 3 ML NEB NEB SCH ×4 (02:38→15:00)
[2021-05-19 04:00] VITALS: BP 124/75
[2021-05-19] MEDS: Morphine 4mg Syringe 4 MG/ML INJ IV PRN (04:11)
[2021-05-19] MEDS: TIOTROPIUM 18 MCG INH POWDER INH SCH (06:00)
[2021-05-19 08:41] VITALS: BP 159/104
[2021-05-19] MEDS: METHYLPREDNISOLONE SOD SUCC 40 MG/ML VIAL 1ML IV SCH (08:43)
[2021-05-19] MEDS: METOPROLOL TARTRATE 25 MG TAB PO SCH (08:46)
[2021-05-19] MEDS: SERTRALINE HCL 100 MG TAB PO SCH (08:47)
[2021-05-19] MEDS: TIZANIDINE HCL 4 MG TAB PO SCH (08:47)
[2021-05-19] MEDS: LIDOCAINE 4% PATCH TP SCH (08:47)
[2021-05-19] MEDS: GABAPENTIN 300 MG CAP PO SCH (08:52)
[2021-05-19] MEDS: (Roflumilast (Daliresp) 500 MCG) PO SCH (08:52)
[2021-05-19] MEDS: HYDROCODONE/APAP 10MG-325MG TAB PO PRN (13:55)
== END 2021-05-19 16:40 | disposition hospice, home (50) | DRG 535 ==
LOC: ER 20:25 → ERHOLD 23:32 → MED/SURG2 05-15 00:30
PROVIDERS: ADMIT Internal Medicine; ATTEND Internal Medicine
DX: S32.512A Fracture of superior rim of left pubis, initial encounter for closed fracture (principal); S32.492A Other specified fracture of left acetabulum, initial encounter for closed fracture; J44.1 Chronic obstructive pulmonary disease with (acute) exacerbation; E87.2 Acidosis; E44.0 Moderate protein-calorie malnutrition; Z68.1 Body mass index [BMI] 19.9 or less, adult; S32.511A Fracture of superior rim of right pubis, initial encounter for closed fracture; R07.89 Other chest pain; Z80.3 Family history of malignant neoplasm of breast; Z80.1 Family history of malignant neoplasm of trachea, bronchus and lung; Z99.81 Dependence on supplemental oxygen; W01.0XXA Fall on same level from slipping, tripping and stumbling without subsequent striking against object, initial encounter; Y93.01 Activity, walking, marching and hiking; Y92.019 Unspecified place in single-family (private) house as the place of occurrence of the external cause; Z87.891 Personal history of nicotine dependence; M81.0 Age-related osteoporosis without current pathological fracture; Z20.822 Contact with and (suspected) exposure to COVID-19; Z86.010 Personal history of colon polyps; S00.12XA Contusion of left eyelid and periocular area, initial encounter; S00.11XA Contusion of right eyelid and periocular area, initial encounter; S40.021A Contusion of right upper arm, initial encounter; S80.12XA Contusion of left lower leg, initial encounter; S80.11XA Contusion of right lower leg, initial encounter
CPT/HCPCS: 36415; 70450; 71045; 72100; 72125; 72192; 80048; 80053; 81001; 82550; 82553; 83605; 83735; 84443; 84484; 85025; 87040; 93005; 93306; 93880; 94799; 97139; 99284; J0456; J0696; J1170; J1650; J1885; J2270; J2405; J2920; J2930; J7030; J7040; J7050; U0002